=== PATIENT | male | born 1950 | race Two or more races ===

== ENCOUNTER 2016-09-08 23:39 | Emergency (ER) | payer MEDICARE, OTHER ==
[2016-09-09 00:03] VITALS: PULSE 67; RESP 18
[2016-09-09] MEDS ORDERED: PROPARACAINE 0.5% OPHTH DROPS 15 ML BTL LEFT EYE STA (00:46)
--- NOTE | 2016-09-09 01:31 | ED ---
Eye Problem HPI - General Chief complaint: Eye Problems Stated complaint: L Eye Burning Time Seen by Provider: 09/09/16 00:13 Source: patient, EMS, records assistant, RN notes reviewed Mode of arrival: EMS Limitations: language barrier - History of Present Illness Initial comments: Patient is 66-year-old male presents to the emergency room for evaluation of left eye burning. HPI obtained from records assistant. Patient woke up around 12:30 this morning with left eye burning. Burning is worse every time patient blinks. Denies injury to left eye or getting any dust or foreign bodies into left eye during the day today. Patient had cataract surgery about 3-4 years ago by his administrative services manager in [place]. Denies any issues with his eye since. Last visit to his administrative services manager was one year ago. When patient initially began feeling the burning in his eye, he took refresh eyedrops with no relief of symptoms. Denies changes in vision denies pain while moving his eyes. Denies fevers or chills. - Related Data Home Medications Medication Instructions Recorded Confirmed Apixaban [Eliquis] 5 mg PO BID 11/27/15 03/05/16 Atorvastatin [Lipitor] 10 mg PO DAILY 11/27/15 03/05/16 Ezetimibe [Zetia] 10 mg PO HS 11/27/15 03/05/16 Gabapentin 300 mg PO BID 11/27/15 03/05/16 Insulin Aspart [NovoLOG Flexpen] 24 units SQ AC-TID 11/27/15 03/05/16 Insulin Glargine,Hum.rec.anlog 32 units SQ 11/27/15 03/05/16 [Lantus Solostar] Polyethylene Glycol 3350 [Miralax] 17 gm PO DAILY PRN 11/27/15 03/05/16 Ranitidine HCl [Zantac] 150 mg PO BID 11/27/15 03/05/16 Albuterol Inhaler [Ventolin Hfa 1 puff INHALATION RT-Q4H PRN 03/05/16 03/05/16 Inhaler] Amiodarone [Cordarone] 200 mg PO DAILY 03/05/16 03/05/16 Aspirin [Adult Low Dose Aspirin EC] 81 mg PO DAILY 03/05/16 03/05/16 Betamethasone Dipropionate 1 applic TOPICAL BID PRN 03/05/16 03/05/16 [Diprolene AF 0.05% Cream] Carvedilol [Coreg] 12.5 mg PO BID 03/05/16 03/05/16 Docusate [Colace] 100 mg PO Q12H PRN 03/05/16 03/05/16 Fluticasone Nasal [place] [Flonase 2 spray EA NOSTRIL DAILY 03/05/16 03/05/16 Nasal [place]] Ibuprofen [Motrin] 800 mg PO Q8H 03/05/16 03/05/16 Nitroglycerin Sl Tabs [Nitrostat] 0.4 mg SUBLINGUAL Q5M PRN 03/05/16 03/05/16 Penicillin V Potassium [Pen Vee K] 500 mg PO Q8H 03/05/16 03/05/16 busPIRone HCL [Buspar] 7.5 mg PO BID 03/05/16 03/05/16 Previous Rx's Medication Instructions Recorded Lisinopril [Zestril] 10 mg PO DAILY tab 11/30/15 Metoprolol Tartrate [Lopressor] 50 mg PO BID #60 tab 11/30/15 Polymyxin B-Trimethoprim Ophth 2 drops LEFT EYE Q4H 10 Days 09/09/16 [Polytrim Opthalmic] Allergies Allergy/AdvReac Type Severity Reaction Status Date / Time No Known Allergies Allergy Verified 03/05/16 16:30 Review of Systems ROS Statement: Those systems with pertinent positive or pertinent negative responses have been documented in the HPI. ROS Other: All systems not noted in ROS Statement are negative. Past Medical History Past Medical History: Coronary Artery Disease (CAD), Diabetes Mellitus, Hearing Disorder / Deafness, Hyperlipidemia, Hypertension, Myocardial Infarction ([place]), Skin Disorder, Sleep Apnea/CPAP/BIPAP Additional Past Medical History / Comment(s): Pt is deaf, IDDM type II, bilateral hands/arms and leg/feet neuropathy, JAMEY with no current CPAP use, psoriasis, constipation, pt needs oral surgery. Pt is a Jehov[employer] Witness and is not to receive blood. Last Myocardial Infarction Date:: 2008 History of Any Multi-Drug Resistant Organisms: None Reported Past Surgical History: Heart Catheterization With Stent Additional Past Surgical History / Comment(s): One cardiac stent placed approx 2008 at [facility], Past Anesthesia/Blood Transfusion Reactions: No Reported Reaction Additional Past Anesthesia/Blood Transfusion Reaction / Comment(s): DOES NOT RECIEVE BLOOD TRANSFUSIONS Date of Last Stent Placement:: approx 7 yrs ago Past Psychological History: Depression Additional Psychological History / Comment(s): Pt resides in an apartment alone. He has [facility] home care. He ambulates with a cane or uses a scooter. Pt is a [employer] and does not want to receive blood. Smoking Status: Former smoker Past Alcohol Use History: None Reported Additional Past Alcohol Use History / Comment(s): Pt quit smoking in 1977. Past Drug Use History: None Reported - Past Family History Father History Unknown: Yes Family Medical History: Cancer Mother History Unknown: Yes General Exam - General Exam Comments Initial Comments: Sitting in exam room, no acute distress. Limitations: language barrier General appearance: alert, in no apparent distress Expanded Eyelids: Normal Inspection: Bilateral Pupils: Regular, Round: Bilateral, Reactive: Bilateral Sclera/Conjunctival: Injection: Left IOP (L) in mmH IOP measured with: Tonopen ENT exam: Present: normal exam Neck exam: Present: normal inspection Respiratory exam: Absent: respiratory distress Extremities exam: Present: normal inspection Back exam: Present: normal inspection Neurological exam: Present: alert, oriented X3, CN II-XII intact Psychiatric exam: Present: normal affect, normal mood Skin exam: Present: warm, dry, intact, normal color. Absent: rash Course Vital Signs 09/08/16 09/09/16 23:59 01:53 Temperature 97.7 F 98.2 F Pulse Rate 67 67 Respiratory 18 18 Rate Blood Pressure 147/62 134/75 O2 Sat by Pulse 97 95 Oximetry Medical Decision Making - Medical Decision Making Patient is a 66-year-old male since emergency room for evaluation of left eye burning. Small amount of uptake noted when left eye was evaluated with fluorescein dye under Quiles lamp. Will place patient on antibiotic eyedrops and have him follow-up with his administrative services manager. Eye pressure within normal limits. Patient denies any changes in vision. Patient states he understands everything that was discussed with him. Return parameters discussed. Case discussed with Dr. Carl. Disposition Clinical Impression: Corneal abrasion Disposition: HOME SELF-CARE Condition: Good Instructions: Corneal Abrasion (ED) Additional Instructions: Take Tylenol or Motrin as needed for discomfort. Apply eye drops to left eye as directed. Please follow up with administrative services manager in the morning. If any new symptom arises or symptoms worsen, return to ER as soon as possible. Prescriptions: Polymyxin B-Trimethoprim Ophth [Polytrim Opthalmic] 2 drops LEFT EYE Q4H 10 Days Referrals: Sherron Anderson MD [Primary Care Provider] - 1-2 days Cesar Taylor MD [STAFF PHYSICIAN] - 1-2 days Time of Disposition: 01:34
[2016-09-09 01:57] VITALS: BP 134/75; TEMP 98.2
== END 2016-09-09 01:56 | disposition home or self-care (01) ==
LOC: EC 23:39
DX: S05.02XA Injury of conjunctiva and corneal abrasion without foreign body, left eye, initial encounter (principal); X58.XXXA Exposure to other specified factors, initial encounter; I10 Essential (primary) hypertension; E11.40 Type 2 diabetes mellitus with diabetic neuropathy, unspecified; I25.10 Atherosclerotic heart disease of native coronary artery without angina pectoris; E78.5 Hyperlipidemia, unspecified; G47.33 Obstructive sleep apnea (adult) (pediatric); Z95.5 Presence of coronary angioplasty implant and graft; H91.93 Unspecified hearing loss, bilateral; F32.9 Major depressive disorder, single episode, unspecified; Z79.82 Long term (current) use of aspirin; Z79.01 Long term (current) use of anticoagulants; Z79.4 Long term (current) use of insulin; Z79.51 Long term (current) use of inhaled steroids; Z79.899 Other long term (current) drug therapy; Z87.891 Personal history of nicotine dependence
CPT/HCPCS: 99284

== ENCOUNTER 2016-11-05 09:18 | Emergency (ER) | payer MEDICARE, OTHER ==
[2016-11-05 09:30] VITALS: BP 137/65; PULSE 68; RESP 18; TEMP 98.3
[2016-11-05] MEDS ORDERED: PROPARACAINE 0.5% OPHTH DROPS 15 ML BTL LEFT EYE STA (09:43)
--- NOTE | 2016-11-05 10:48 | ED ---
General Adult HPI - General Chief complaint: Eye Problems Stated complaint: eye pain Time Seen by Provider: 11/05/16 09:35 Source: patient, RN notes reviewed Mode of arrival: wheelchair Limitations: language barrier - History of Present Illness Initial comments: Patient is 66-year-old male who is deaf, presenting today with a chief complaint of left eye irritation. Pen and Paper used to communicate. Patient does admit that this pain has been ongoing for the past 2 months. Recent visit was reviewed showing the patient was seen for an abrasion on September 08 and given eyedrops. He does admit that he uses. States that he is still had this pain. States that the family doctor yesterday prescribed new antibiotic of polymyxin B. Patient states he started this in a back drop yesterday. States that he still experiencing some pain left side. He does admit some blurry vision. Patient denies any injury or trauma causing this. Patient denies any other complaints at this time. - Related Data Home Medications Medication Instructions Recorded Confirmed Apixaban [Eliquis] 5 mg PO BID 11/27/15 03/05/16 Atorvastatin [Lipitor] 10 mg PO DAILY 11/27/15 03/05/16 Ezetimibe [Zetia] 10 mg PO HS 11/27/15 03/05/16 Gabapentin 300 mg PO BID 11/27/15 03/05/16 Insulin Aspart [NovoLOG Flexpen] 24 units SQ AC-TID 11/27/15 03/05/16 Insulin Glargine,Hum.rec.anlog 32 units SQ 11/27/15 03/05/16 [Lantus Solostar] Polyethylene Glycol 3350 [Miralax] 17 gm PO DAILY PRN 11/27/15 03/05/16 Ranitidine HCl [Zantac] 150 mg PO BID 11/27/15 03/05/16 Albuterol Inhaler [Ventolin Hfa 1 puff INHALATION RT-Q4H PRN 03/05/16 03/05/16 Inhaler] Amiodarone [Cordarone] 200 mg PO DAILY 03/05/16 03/05/16 Aspirin [Adult Low Dose Aspirin EC] 81 mg PO DAILY 03/05/16 03/05/16 Betamethasone Dipropionate 1 applic TOPICAL BID PRN 03/05/16 03/05/16 [Diprolene AF 0.05% Cream] Carvedilol [Coreg] 12.5 mg PO BID 03/05/16 03/05/16 Docusate [Colace] 100 mg PO Q12H PRN 03/05/16 03/05/16 Fluticasone Nasal [place] [Flonase 2 spray EA NOSTRIL DAILY 03/05/16 03/05/16 Nasal [place]] Ibuprofen [Motrin] 800 mg PO Q8H 03/05/16 03/05/16 Nitroglycerin Sl Tabs [Nitrostat] 0.4 mg SUBLINGUAL Q5M PRN 03/05/16 03/05/16 Penicillin V Potassium [Pen Vee K] 500 mg PO Q8H 03/05/16 03/05/16 busPIRone HCL [Buspar] 7.5 mg PO BID 03/05/16 03/05/16 Previous Rx's Medication Instructions Recorded Lisinopril [Zestril] 10 mg PO DAILY tab 11/30/15 Metoprolol Tartrate [Lopressor] 50 mg PO BID #60 tab 11/30/15 Polymyxin B-Trimethoprim Ophth 2 drops LEFT EYE Q4H 10 Days 09/09/16 [Polytrim Opthalmic] Allergies Allergy/AdvReac Type Severity Reaction Status Date / Time No Known Allergies Allergy Verified 11/05/16 09:30 Review of Systems ROS Statement: Those systems with pertinent positive or pertinent negative responses have been documented in the HPI. ROS Other: All systems not noted in ROS Statement are negative. Past Medical History Past Medical History: Coronary Artery Disease (CAD), Diabetes Mellitus, Hearing Disorder / Deafness, Hyperlipidemia, Hypertension, Myocardial Infarction ([place]), Skin Disorder, Sleep Apnea/CPAP/BIPAP Additional Past Medical History / Comment(s): Pt is deaf, IDDM type II, bilateral hands/arms and leg/feet neuropathy, JAMEY with no current CPAP use, psoriasis, constipation, pt needs oral surgery. Pt is a Jehovah Witness and is not to receive blood. Last Myocardial Infarction Date:: 2008 History of Any Multi-Drug Resistant Organisms: None Reported Past Surgical History: Heart Catheterization With Stent Additional Past Surgical History / Comment(s): One cardiac stent placed approx 2008 at [facility], Past Anesthesia/Blood Transfusion Reactions: No Reported Reaction Additional Past Anesthesia/Blood Transfusion Reaction / Comment(s): DOES NOT RECIEVE BLOOD TRANSFUSIONS Date of Last Stent Placement:: approx 7 yrs ago Past Psychological History: Depression Additional Psychological History / Comment(s): Pt resides in an apartment alone. He has [facility] home care. He ambulates with a cane or uses a scooter. Pt is a [employer] and does not want to receive blood. Smoking Status: Former smoker Past Alcohol Use History: None Reported Additional Past Alcohol Use History / Comment(s): Pt quit smoking in 1977. Past Drug Use History: None Reported - Past Family History Father History Unknown: Yes Family Medical History: Cancer Mother History Unknown: Yes General Exam - General Exam Comments Initial Comments: General: The patient is awake and alert, in no distress, and does not appear acutely ill. Eye: Pupils are equal, round and reactive to light, extra-ocular movements are intact. No nystagmus. There is normal conjunctiva bilaterally. No signs of icterus. Ears, nose, mouth and throat: There are moist mucous membranes and no oral lesions. Neck: The neck is supple, there is no tenderness or JVD. Cardiovascular: There is a regular rate and rhythm. No murmur, rub or gallop is appreciated. Respiratory: Lungs are clear to auscultation, respirations are non-labored, breath sounds are equal. No wheezes, stridor, rales, or rhonchi. Musculoskeletal: Normal ROM, no tenderness. Strength 5/5. Sensation intact. Pulses equal bilaterally 2+. Neurological: A&O x 3. CN II-XII intact, There are no obvious motor or sensory deficits. Coordination appears grossly intact. Speech is normal. Skin: Skin is warm and dry and no rashes or lesions are noted. Psychiatric: Cooperative, appropriate mood & affect, normal judgment. Limitations: language barrier Course Vital Signs 11/05/16 09:27 Temperature 98.3 F Pulse Rate 68 Respiratory 18 Rate Blood Pressure 137/65 O2 Sat by Pulse 93 L Oximetry Medical Decision Making - Medical Decision Making Case discussed in detail with attending physician Dr. Suero. Patient's left eye pressure was checked 21 in the left 22 in the right. Patient is advised follow- up with matlab developer. Left eye was stained with fluorescein showing a corneal ulcer left eye. Patient had improvement of symptoms after proparacaine drop. Patient will be continued on the antibiotics that were prescribed yesterday. Patient is advised follow-up with urology Monday. He states understanding and is in agreement with this plan. Disposition Clinical Impression: Corneal ulcer Disposition: HOME SELF-CARE Condition: Stable Instructions: Corneal Ulcer (ED) Additional Instructions: Please follow-up with matlab developer Dr. Elizalde Monday. You may have someone help call the office to set up an appointment number is [phone]. If there is no one to help call you may show up to the office to set up an appointment to be seen for a corneal ulcer to the left eye. Please use eyedrops that were prescribed by the family doctor and told that time. Please return to emergency room if any symptoms increase worsen or for any other concerns. Referrals: Kyle Anderson MD [Primary Care Provider] - 1-2 days Deondre Elizalde MD [STAFF PHYSICIAN] - 1-2 days Time of Disposition: 10:46
== END 2016-11-05 11:19 | disposition home or self-care (01) ==
LOC: EC 09:18
DX: H16.002 Unspecified corneal ulcer, left eye (principal); E11.9 Type 2 diabetes mellitus without complications; E78.5 Hyperlipidemia, unspecified; I10 Essential (primary) hypertension; I25.10 Atherosclerotic heart disease of native coronary artery without angina pectoris; I25.2 Old myocardial infarction; F32.9 Major depressive disorder, single episode, unspecified; Z87.891 Personal history of nicotine dependence; Z79.01 Long term (current) use of anticoagulants; Z79.4 Long term (current) use of insulin; Z79.51 Long term (current) use of inhaled steroids; Z79.82 Long term (current) use of aspirin; Z79.899 Other long term (current) drug therapy
CPT/HCPCS: 99283

== ENCOUNTER 2017-01-30 17:25 | Observation (INO) | payer MEDICARE, OTHER ==
[2017-01-30 19:31] LABS: Basophils % (A) 0 %; CH 32.2; CHCM 33.8; Eosinophils # (A) 0.2 k/uL (0-0.7); Eosinophils % (A) 2 %; HGB 13.7 gm/dL (13.0-17.5); Luc # (Auto) 0.15; Luc % (Auto) 2; Lymphocytes # (A) 1.2 k/uL (1.0-4.8); Lymphocytes % (A) 17 %; MCH 31.9 pg (25.0-35.0); MCHC 33.3 g/dL (31.0-37.0); MCV 95.8 fL (80.0-100.0); Mean Platelet Volume 7.3; Monocytes # (A) 0.5 k/uL (0-1.0); Monocytes % (A) 6 %; Neutrophils # (A) 5.2 k/uL (1.3-7.7); Neutrophils % (A) 72 %; RBC 4.28 m/uL (4.30-5.90); RDW 14.4 % (11.5-15.5); WBC 7.2 k/uL (3.8-10.6); WBC (Perox) 6.95
[2017-01-30 19:39] LABS: ALT 46 U/L (21-72); AST 27 U/L (17-59); Alkaline Phosphatase 65 U/L (38-126); Anion Gap 8 mmol/L; Blood Urea Nitrogen 12 mg/dL (9-20); Calcium 8.5 mg/dL (8.4-10.2); Carbon Dioxide 27 mmol/L (22-30); Chloride 103 mmol/L (98-107); Glucose 212 mg/dL (74-99); Magnesium 2.1 mg/dL (1.6-2.3); Non-African American GFR(MDRD) >60 (>60 ml/min/1.73 sqM); Potassium 4.3 mmol/L (3.5-5.1); Sodium 138 mmol/L (137-145); Total Bilirubin 1.8 mg/dL (0.2-1.3); Total Protein 6.2 g/dL (6.3-8.2)
[2017-01-30 20:07] LABS: INR 1.1 (<1.2); Partial Thromboplastin Time 24.6 sec (22.0-30.0); Prothrombin Time 10.9 sec (9.0-12.0)
--- NOTE | 2017-01-30 20:41 | XR ---
EXAMINATION TYPE: XR chest 2V DATE OF EXAM: 01/30/2017 COMPARISON: 03/05/2016 HISTORY: Irregular heart rate TECHNIQUE: Frontal and lateral views of the chest are obtained. FINDINGS: Heart and mediastinum are within normal limits. Lungs are clear. There is no heart failure . There is no pleural effusion. Bony thorax is intact. IMPRESSION: No active cardiopulmonary disease. No change.
[2017-01-30 20:45] LABS: Creatine Kinase 90 U/L (55-170)
[2017-01-30 20:58] LABS: Creatine Kinase MB 1.2 ng/mL (0.0-2.4); Troponin I <0.012 ng/mL (0.000-0.034)
[2017-01-30] MEDS ORDERED: ONDANSETRON 4 MG/2 ML VIAL IVP PRN (21:07)
[2017-01-30] MEDS ORDERED: NALOXONE 0.4 MG/ML 1 ML VIAL IV PRN (21:07)
--- NOTE | 2017-01-30 21:14 | ED ---
General Adult HPI - General Chief complaint: Arrhythmia/Palpitations Stated complaint: low O2 and low heart rate Time Seen by Provider: 01/30/17 17:48 Source: patient, diplomatic interpreter/translator, RN notes reviewed Mode of arrival: wheelchair Limitations: language barrier - History of Present Illness Initial comments: History obtained through diplomatic interpreter/translator. Patient is deaf. 66-year-old male presenting with chief complaint of palpitations. States his heart has felt as if was beating slow. He checked his heart rate at home and it was 44. He also complains of some shortness of breath with this. Denies any current chest pain but states it he had some chest pain approximately one week ago. No nausea vomiting. No cough. No fever or chills. Patient does have history of coronary artery disease status post stenting at [facility]. Patient is currently on a [place], Coreg, and lisinopril. Additional past medical history of diabetes and hypothyroidism. - Related Data Home Medications Medication Instructions Recorded Confirmed Apixaban [Eliquis] 5 mg PO BID 11/27/15 01/30/17 Atorvastatin [Lipitor] 10 mg PO DAILY 11/27/15 01/30/17 Ezetimibe [Zetia] 10 mg PO DAILY 11/27/15 01/30/17 Gabapentin 300 mg PO BID 11/27/15 01/30/17 Insulin Aspart [NovoLOG Flexpen] 20 units SQ AC-TID 11/27/15 01/30/17 Ranitidine HCl [Zantac] 150 mg PO BID 11/27/15 01/30/17 Albuterol Inhaler [Ventolin Hfa 1 puff INHALATION RT-Q4H PRN 03/05/16 01/30/17 Inhaler] Betamethasone Dipropionate 1 applic TOPICAL BID PRN 03/05/16 01/30/17 [Diprolene AF 0.05% Cream] Fluticasone Nasal [place] [Flonase 2 spray EA NOSTRIL DAILY 03/05/16 01/30/17 Nasal [place]] Nitroglycerin Sl Tabs [Nitrostat] 0.4 mg SUBLINGUAL Q5M PRN 03/05/16 01/30/17 busPIRone HCL [Buspar] 7.5 mg PO BID@0900,1700 03/05/16 01/30/17 Carvedilol [Coreg] 25 mg PO BID 01/30/17 01/30/17 Diphenox-Atrop 2.5-0.025 mg 2 tab PO QID PRN 01/30/17 01/30/17 [Lomotil] Fexofenadine HCl 180 mg PO DAILY 01/30/17 01/30/17 Insulin Detemir [Levemir Flextouch] 28 units SQ DAILY 01/30/17 01/30/17 Levothyroxine Sodium [Synthroid] 112 mcg PO DAILY 01/30/17 01/30/17 Montelukast [Singulair] 10 mg PO HS 01/30/17 01/30/17 Mupirocin [Mupirocin 2%] 1 applic TOPICAL TID 01/30/17 01/30/17 Naproxen 500 mg PO BID 01/30/17 01/30/17 [place]-3 Acid Ethyl Esters [Lovaza] 1 gm PO DAILY 01/30/17 01/30/17 metFORMIN HCL [Glucophage] 500 mg PO BID 01/30/17 01/30/17 traZODone HCL [Desyrel] 25 - 50 mg PO HS 01/30/17 01/30/17 Previous Rx's Medication Instructions Recorded Lisinopril [Zestril] 10 mg PO DAILY tab 11/30/15 Metoprolol Tartrate [Lopressor] 50 mg PO BID #60 tab 11/30/15 Allergies Allergy/AdvReac Type Severity Reaction Status Date / Time No Known Allergies Allergy Verified 01/30/17 19:00 Review of Systems ROS Statement: Those systems with pertinent positive or pertinent negative responses have been documented in the HPI. ROS Other: All systems not noted in ROS Statement are negative. Past Medical History Past Medical History: Coronary Artery Disease (CAD), Diabetes Mellitus, Hearing Disorder / Deafness, Hyperlipidemia, Hypertension, Myocardial Infarction ([place]), Skin Disorder, Sleep Apnea/CPAP/BIPAP Additional Past Medical History / Comment(s): Pt is deaf, IDDM type II, bilateral hands/arms and leg/feet neuropathy, JAMEY with no current CPAP use, psoriasis, constipation, pt needs oral surgery. Pt is a Jehovah Witness and is not to receive blood. Last Myocardial Infarction Date:: 2008 History of Any Multi-Drug Resistant Organisms: None Reported Past Surgical History: Heart Catheterization With Stent Additional Past Surgical History / Comment(s): One cardiac stent placed approx 2008 at [facility], Past Anesthesia/Blood Transfusion Reactions: No Reported Reaction Additional Past Anesthesia/Blood Transfusion Reaction / Comment(s): DOES NOT RECIEVE BLOOD TRANSFUSIONS Date of Last Stent Placement:: approx 7 yrs ago Past Psychological History: Depression Smoking Status: Former smoker Past Alcohol Use History: None Reported Past Drug Use History: None Reported - Past Family History Father History Unknown: Yes Family Medical History: Cancer Mother History Unknown: Yes General Exam Limitations: language barrier General appearance: alert, in no apparent distress Head exam: Present: atraumatic, normocephalic Eye exam: Present: normal appearance, PERRL ENT exam: Present: normal exam, mucous membranes moist Neck exam: Present: normal inspection Respiratory exam: Present: normal lung sounds bilaterally. Absent: respiratory distress, wheezes Cardiovascular Exam: Present: normal rhythm, bradycardia GI/Abdominal exam: Present: soft. Absent: distended, tenderness, guarding Extremities exam: Present: normal capillary refill. Absent: pedal edema Neurological exam: Present: alert, oriented X3, CN II-XII intact, motor sensory deficit Psychiatric exam: Present: normal affect, normal mood Skin exam: Present: warm, dry Course Vital Signs 01/30/17 01/30/17 01/30/17 17:39 18:59 20:04 Temperature 99.5 F Pulse Rate 65 61 54 L Respiratory 18 16 16 Rate Blood Pressure 121/80 173/81 O2 Sat by Pulse 96 93 L 94 L Oximetry EKG Findings - EKG Comments: EKG Findings:: EKG shows sinus rhythm with PACs, ventricular rate is 62, NJ interval 96, QRS tracing 78, QTC is 393, there is no ST segment elevation or depression. Medical Decision Making - Medical Decision Making 66-year-old male presenting with palpitations, patient does report chest pain approximately one week ago which is currently resolved. Has a history of coronary artery disease, diabetes, and hypothyroidism. EKG shows sinus rhythm with PACs, no signs of ischemia. Chest x-ray shows no acute process. Initial laboratory studies including cardiac enzymes are within normal limits. History was obtained through an diplomatic interpreter/translator. Patient will be admitted for cardiology evaluation and serial cardiac enzymes. - Lab Data Result diagrams: 01/30/17 19:20 01/30/17 19:20 Lab Results 01/30/17 01/30/17 01/30/17 Range/Units 19:20 19:20 19:20 WBC 7.2 (3.8-10.6) k/uL RBC 4.28 L (4.30-5.90) m/uL Hgb 13.7 (13.0-17.5) gm/dL Hct 41.0 (39.0-53.0) % MCV 95.8 (80.0-100.0) fL MCH 31.9 (25.0-35.0) pg MCHC 33.3 (31.0-37.0) g/dL RDW 14.4 (11.5-15.5) % Plt Count 201 (150-450) k/uL Neutrophils % 72 % Lymphocytes % 17 % Monocytes % 6 % Eosinophils % 2 % Basophils % 0 % Neutrophils # 5.2 (1.3-7.7) k/uL Lymphocytes # 1.2 (1.0-4.8) k/uL Monocytes # 0.5 (0-1.0) k/uL Eosinophils # 0.2 (0-0.7) k/uL Basophils # 0.0 (0-0.2) k/uL PT (9.0-12.0) sec INR (<1.2) APTT (22.0-30.0) sec Sodium 138 (137-145) mmol/L Potassium 4.3 (3.5-5.1) mmol/L Chloride 103 (98-107) mmol/L Carbon Dioxide 27 (22-30) mmol/L Anion Gap 8 mmol/L BUN 12 (9-20) mg/dL Creatinine 0.96 (0.66-1.25) mg/dL Est GFR (MDRD) Af Amer >60 (>60 ml/min/1.73 sqM) Est GFR (MDRD) Non-Af >60 (>60 ml/min/1.73 sqM) Glucose 212 H (74-99) mg/dL Calcium 8.5 (8.4-10.2) mg/dL Magnesium 2.1 (1.6-2.3) mg/dL Total Bilirubin 1.8 H (0.2-1.3) mg/dL AST 27 (17-59) U/L ALT 46 (21-72) U/L Alkaline Phosphatase 65 (38-126) U/L Total Creatine Kinase 90 (55-170) U/L CK-MB (CK-2) 1.2 (0.0-2.4) ng/mL CK-MB (CK-2) Rel Index 1.3 Troponin I <0.012 (0.000-0.034) ng/mL NT-Pro-B Natriuret Pep pg/mL Total Protein 6.2 L (6.3-8.2) g/dL Albumin 3.7 (3.5-5.0) g/dL 01/30/17 01/30/17 Range/Units 19:20 19:20 WBC (3.8-10.6) k/uL RBC (4.30-5.90) m/uL Hgb (13.0-17.5) gm/dL Hct (39.0-53.0) % MCV (80.0-100.0) fL MCH (25.0-35.0) pg MCHC (31.0-37.0) g/dL RDW (11.5-15.5) % Plt Count (150-450) k/uL Neutrophils % % Lymphocytes % % Monocytes % % Eosinophils % % Basophils % % Neutrophils # (1.3-7.7) k/uL Lymphocytes # (1.0-4.8) k/uL Monocytes # (0-1.0) k/uL Eosinophils # (0-0.7) k/uL Basophils # (0-0.2) k/uL PT 10.9 (9.0-12.0) sec INR 1.1 (<1.2) APTT 24.6 (22.0-30.0) sec Sodium (137-145) mmol/L Potassium (3.5-5.1) mmol/L Chloride (98-107) mmol/L Carbon Dioxide (22-30) mmol/L Anion Gap mmol/L BUN (9-20) mg/dL Creatinine (0.66-1.25) mg/dL Est GFR (MDRD) Af Amer (>60 ml/min/1.73 sqM) Est GFR (MDRD) Non-Af (>60 ml/min/1.73 sqM) Glucose (74-99) mg/dL Calcium (8.4-10.2) mg/dL Magnesium (1.6-2.3) mg/dL Total Bilirubin (0.2-1.3) mg/dL AST (17-59) U/L ALT (21-72) U/L Alkaline Phosphatase (38-126) U/L Total Creatine Kinase (55-170) U/L CK-MB (CK-2) (0.0-2.4) ng/mL CK-MB (CK-2) Rel Index Troponin I (0.000-0.034) ng/mL NT-Pro-B Natriuret Pep 198 pg/mL Total Protein (6.3-8.2) g/dL Albumin (3.5-5.0) g/dL Disposition Clinical Impression: Premature atrial contraction, Chest pain Disposition: ADMITTED IP TO THIS [facility] Condition: Stable Referrals: Sherron Anderson MD [Primary Care Provider] - 1-2 days Decision to Admit Reason: Admit from EC Decision Date: 01/30/17 Decision Time: 21:14
[2017-01-30] MEDS ORDERED: SODIUM CHLORIDE 0.9% 1,000 ML IV SCH (21:15)
[2017-01-30 22:49] VITALS: BMI 36.9
[2017-01-30 23:34] LABS: Glucose,Whole Blood 165 mg/dL (75-99)
[2017-01-31] MEDS: INSULIN LISPRO (humaLOG) 300 UNIT/3 ML VIAL SQ SCH ×2 (00:08→09:42)
[2017-01-31] MEDS ORDERED: BETAMETHASONE DIPROPIONATE 0.05% CREAM 15 GM TUBE TOPICAL PRN (00:18)
[2017-01-31] MEDS ORDERED: DIPHENOX-ATROP 2.5-0.025 MG 1 EACH TAB PO PRN (00:18)
[2017-01-31] MEDS ORDERED: NITROGLYCERIN SL TABS 0.4 MG TAB SUBLINGUAL PRN (00:18)
[2017-01-31] MEDS ORDERED: ATORVASTATIN 10 MG TAB PO SCH ×2 (00:30→09:00)
[2017-01-31] MEDS ORDERED: CARVEDILOL 12.5 MG TAB PO SCH ×3 (00:30→09:30)
[2017-01-31] MEDS: GABAPENTIN 300 MG CAP PO SCH ×2 (01:30→09:41)
[2017-01-31] MEDS: APIXABAN 5 MG TAB PO SCH ×2 (01:31→09:41)
[2017-01-31] MEDS: LISINOPRIL 10 MG TAB PO SCH ×2 (01:31→09:41)
[2017-01-31 01:45] LABS: Creatine Kinase 90 U/L (55-170)
[2017-01-31 01:58] LABS: Creatine Kinase MB 1.1 ng/mL (0.0-2.4); Troponin I <0.012 ng/mL (0.000-0.034)
[2017-01-31] MEDS ORDERED: LEVOTHYROXINE 112 MCG TAB PO SCH (06:30)
[2017-01-31 07:06] LABS: Glucose,Whole Blood 190 mg/dL (75-99)
[2017-01-31 07:49] VITALS: RESP 18
[2017-01-31 08:39] LABS: Creatine Kinase 91 U/L (55-170)
[2017-01-31 08:49] LABS: Troponin I <0.012 ng/mL (0.000-0.034)
[2017-01-31] MEDS ORDERED: METOPROLOL TARTRATE 50 MG TAB PO SCH (09:00)
[2017-01-31] MEDS ORDERED: INSULIN DETEMIR 100 UNIT/ML 10 ML VIAL SQ SCH (09:00)
[2017-01-31] MEDS ORDERED: FAMOTIDINE 20 MG TAB PO SCH (09:00)
[2017-01-31] MEDS ORDERED: LISINOPRIL 10 MG TAB PO SCH (09:00)
[2017-01-31] MEDS ORDERED: NON-FORMULARY DRUG (Omega-3 Acid Ethyl Esters [Lovaza] 1 GM) PO SCH (09:00)
[2017-01-31] MEDS ORDERED: EZETIMIBE 10 MG TAB PO SCH (09:00)
[2017-01-31] MEDS ORDERED: busPIRone HCl 5 MG TAB PO SCH (09:00)
[2017-01-31] MEDS ORDERED: metFORMIN 500 MG TAB PO SCH (09:00)
[2017-01-31] MEDS ORDERED: NAPROXEN 250 MG TAB PO SCH (09:00)
[2017-01-31] MEDS ORDERED: FLUTICASONE 50MCG/SPRAY NASAL 16GM EA NOSTRIL SCH (09:00)
[2017-01-31] MEDS ORDERED: MUPIROCIN 2% OINT 22 GM TUBE TOPICAL SCH (09:00)
[2017-01-31] MEDS ORDERED: APIXABAN 5 MG TAB PO SCH (09:00)
[2017-01-31] MEDS ORDERED: GABAPENTIN 300 MG CAP PO SCH (09:00)
[2017-01-31] MEDS ORDERED: LORATADINE 10 MG TAB PO SCH (09:00)
--- NOTE | 2017-01-31 09:34 | HP ---
DATE OF SERVICE: 01/30/2017 CHIEF COMPLAINT: A 66-year-old white male with palpitations. HISTORY OF PRESENT ILLNESS: This 66-year-old white male who is apparently deaf. Says his heartbeat was beating slow. It was in 40s at home. He got some atypical chest pain a week ago and because of the chest pain and irregular beat and he has a history of coronary artery stenting at [facility]. He was brought to the hospital. He is on lisinopril and Coreg. He has a history of diabetes mellitus and hypothyroidism. He is deaf for many years. He does sign language. HOME MEDICATIONS: 1. Eliquis 5 mg b.i.d. 2. Lipitor 10 mg daily. 3. Zetia 10 mg daily. 4. Gabapentin 300 mg b.i.d. 5. Insulin FlexPen 20 units subcu t.i.d. 6. Zantac 150 b.i.d. 7. Albuterol 2 puffs q.4 hours p.r.n. 8. He takes fluticasone. 9. Nitroglycerin sublingual. 10. BuSpar. 11. Coreg. 12. Fexofenadine. 13. Levemir. 14. Synthroid. 15. Singulair. 16. Lovaza. 17. Glucophage. 18. Desyrel. ALLERGIES: No known drug allergies. REVIEW OF SYSTEMS: Fourteen-point review of systems negative except for as mentioned in HPI. PAST MEDICAL HISTORY: Coronary artery disease, diabetes mellitus, hearing disorder, deafness, dyslipidemia, hypertension, myocardial infarction, skin disorder, sleep apnea, type 2 diabetes mellitus. He has neuropathy, obstructive sleep apnea, psoriasis, constipation. Jehovah Witness no blood. Heart catheterization with stent in the past. He is a former smoker. No alcohol. No illicit drugs. FAMILY HISTORY: Father with cancer. PHYSICAL EXAM: Vital signs stable, afebrile. CARDIOVASCULAR: S1 and S2. ABDOMEN: Clear. EXTREMITIES: No cyanosis, clubbing or edema. NEUROLOGIC: Awake, alert, oriented x3. PSYCH: Fair mood affect. OPHTHALMOLOGIC: Pupils equal, round and reactive to light and accommodation. ENT: External ear canals within normal limits. Temp 99.5, pulse 50s to 60s, respiratory 16 to 18, blood pressure 120s to 170s over 80s, O2 is 94% to 96% on room air. EKG sinus rhythm. ASSESSMENT: 1. Atypical chest pain. 2. Palpitations. 3. Bradycardia. 4. Hypothyroidism. 5. Coronary artery disease. 6. Diabetes mellitus. 7. Hypothyroidism. Await Cardiology to evaluate patient prior to discharge. MTDD
[2017-01-31 11:34] VITALS: BP 109/69; PULSE 79; TEMP 98.7
--- NOTE | 2017-01-31 12:28 | CONS ---
This is a 66-year-old gentleman with a history of CAD, previous stenting performed more than 4 years ago at [facility] and he usually sees a assistant front end manager in the [facility]. He has hypertension, hyperlipidemia, paroxysmal A. fib and probably underlying sick sinus syndrome. He came in mainly with complaints of feeling that his heart rate is slow and he was having palpitations. He has a finger heart rate monitor, which showed the rate was in the 44 or so. He felt short of breath. He felt weak and with these symptoms he came in. He was in a sinus rhythm with PACs at a rate of about ( ) beats per minute. However, he went back into atrial fib. It seems to be his more common rhythm. He had taken additional doses of metoprolol tartrate 50 mg daily at home and this may have been the precipitating factor for him to drop his heart rate. He is otherwise on a regular bases Coreg 25 mg b.i.d. He also has a type 2 diabetes mellitus and hypercholesterolemia and hypertension. He did not have chest pain. He is comfortable, resting. He has no symptoms at this time. He feels well. PAST MEDICAL HISTORY: 1. Paroxysmal A. fib. 2. CAD with previous stenting, details unclear. Follow with a assistant front end manager in [facility]. 3. Type 2 diabetes mellitus. 4. Hyperlipidemia. 5. Hypertension. Previous admission here was with atrial fib. He may have some underlying sick sinus syndrome, but he is usually on Coreg 25 mg b.i.d., probably additional Lopressor that he takes on a p.r.n. basis may have precipitated the bradycardic. Medications at home include Eliquis 5 mg b.i.d., Lipitor 10 mg daily, Zetia 10 mg daily, insulin, metformin, carvedilol 25 mg b.i.d. and Lopressor 50 mg p.r.n. , Singulair, levothyroxine 112 mcg daily, trazodone. ALLERGIES: No known drug allergies. On examination, blood pressure is 130/70, pulse rate is about 68 per minute, appears to be irregular. HEENT: Unremarkable. Fundus was not examined by me. Neck is supple. There is no JVD. I do not hear a carotid bruit. Heart exam reveals S1 and S2 with irregular rate and rhythm. No significant rub , murmur or gallop. Lungs are clear. Abdomen is soft, nontender. Lower extremities reveal palpable pulses. No edema. Central nervous system is normal. Initial EKG revealed sinus PACs with sinus bradycardia with a rate of about 60 beats per minute. Repeat EKG revealed atrial fib at a rate of about 68 beats per minute, irregular, nonspecific ST-T wave changes. IMPRESSION: 1. Paroxysmal atrial fibrillation, well anticoagulated, probably underlying sick sinus syndrome, but stable on current medications. 2. Episode of palpitations and bradycardia, precipitated by additional dose of Lopressor. 3. Coronary artery disease with previous PCI. No issues at this time. 4. Hypertension. 5. Hyperlipidemia. 6. Type 2 diabetes mellitus. RECOMMENDATIONS: I am recommending that we leave him on Coreg 25 mg b.i.d., put a hep lock, increase activity. If he has no further symptoms, he can be discharged. I advised the patient not to take additional Lopressor. He should also have a stress test ideally and he will have it performed through the [facility] and he sees a assistant front end manager there. Discussed my thoughts in detail with the through the operations supervisor chemical cleaning since the patient is deaf. Thank you very much for the consult. JANAE
[2017-01-31 13:54] LABS: Hemoglobin A1C 7.8 % (4.2-6.1)
[2017-01-31] MEDS ORDERED: MONTELUKAST 10 MG TAB PO SCH (21:00)
== END 2017-01-31 12:05 | disposition home or self-care (01) ==
LOC: EC 17:25 → 3OBS 21:10
PROVIDERS: ADMIT Family Medicine; ATTEND Family Medicine
DX: I48.0 Paroxysmal atrial fibrillation (principal); E78.5 Hyperlipidemia, unspecified; I10 Essential (primary) hypertension; I25.10 Atherosclerotic heart disease of native coronary artery without angina pectoris; E11.9 Type 2 diabetes mellitus without complications; H91.90 Unspecified hearing loss, unspecified ear; E03.9 Hypothyroidism, unspecified; I25.2 Old myocardial infarction; G47.33 Obstructive sleep apnea (adult) (pediatric); G62.9 Polyneuropathy, unspecified; L40.9 Psoriasis, unspecified; Z95.5 Presence of coronary angioplasty implant and graft; Z87.891 Personal history of nicotine dependence; Z79.01 Long term (current) use of anticoagulants; Z79.899 Other long term (current) drug therapy; Z79.4 Long term (current) use of insulin; Z79.51 Long term (current) use of inhaled steroids; Z79.84 Long term (current) use of oral hypoglycemic drugs; Z99.89 Dependence on other enabling machines and devices
CPT/HCPCS: 99285 ×2; 36415; 93005; 84439; 83880; 80053; 84443; 83036; 82550 ×2; 82553 ×2; 83735; 84484 ×2; 85025; 85610; 85730; 71020; G0378 ×2

== ENCOUNTER → 2017-03-30 | Outpatient (CLI) | payer MEDICARE, OTHER ==
--- NOTE | 2017-03-30 19:20 | CONS ---
CONSULTATION DATE OF CONSULTATION: 03/30/2017 This patient is a 66-year-old gentleman who has been evaluated in the sleep center for significant excessive daytime sleepiness. The patient is deaf, so all information was obtained through the software team leader. The patient was diagnosed with obstructive sleep apnea about 20 years ago. He was on treatment with CPAP, and the pressure was in the range of 14 cm of water, according to the patient. For last 2 years he was not able to use his CPAP because he did not feel any improvement with the CPAP in relation to his sleepiness. He continued to have sleepiness during the day. About 1 year ago he had a sleep evaluation in another institution, but after that that the situation did not change. He also has been told about some leg movements during the sleep study. Patient says that he possibly may have narcolepsy. His sleep schedule on weekdays is from 10 p.m. to 5 a.m. and on weekends he has a different schedule; anytime. He does have problems with falling asleep. He has a TV set in his bedroom. He sleeps in different positions by himself, so there is no clear information about his snoring during the night. He grinds his teeth, wakes up with a dry mouth and restless legs. He wakes up from sleep about 3 times with 2 episodes of nocturia. In the morning he wakes up tired, falling asleep during the day. [place] Sleepiness Scale is 8. He takes naps 2 or 3 times a day. There is a possible positive history of hypnagogic hallucinations. Patient may see dreams while falling asleep. No history of sleep paralysis or cataplexy. PAST MEDICAL HISTORY: 1. Coronary artery disease with stent insertion. 2. Asthma. 3. Hyperlipidemia. 4. Diabetes mellitus. 5. Back problems. 6. Bradycardia. 7. Dysfunctional ( ) gland. 8. Cataract. PAST SURGICAL HISTORY: 1. Stent insertion to coronary artery. 2. Hernia repair. 3. Cataract surgery with artificial lens insertion. MEDICATIONS: 1. Albuterol. 2. Eliquis. 3. Atorvastatin. 4. Insulin. 5. Betamethasone cream. 6. Buspirone. 7. Carvedilol. 8. Zetia. 9. Fluticasone. 10.Gabapentin. 11.Levothyroxine. 12.Lisinopril. 13.Metformin. 14.Montelukast. 15.Naproxen. 16.Nitroglycerine. 17.Ranitidine. 18.( ). 19.Trazodone at bedtime. SOCIAL HISTORY: Positive for smoking in the past; quit in 1975. Alcohol consumption none. REVIEW OF SYSTEMS: Multiple awakenings from sleep, significant excessive daytime sleepiness. FAMILY HISTORY: Hypertension, heart problems, hyperlipidemia, arthritis, asthma, sinus headache, sleep apnea, tuberculosis, pneumonia, narcolepsy, ulcers, diabetes. PHYSICAL EXAM: This is a pleasant 66-year-old gentleman without distress. VITAL SIGNS: BP 126/64, HR 60, R 18, height 5 feet 8-1/2 inches, weight 252, BMI 37.7. Neck 19-3/4 inch in circumference. Temperature 99.8, oxygen saturation at room air 94%. HEENT: PERRLA, EOMI. Evaluation of oropharynx showed tongue protrudes midline. Moderately low position of soft palate. Short distance between soft palate and pharyngeal wall. NECK: Supple. No JVD. Thyroid is not palpable. LUNGS: Clear to percussion and to auscultation. Good air exchange. No wheezing or rhonchi. HEART: S1, S2 with some irregularities. Slight systolic murmur. ABDOMEN: Obese. EXTREMITIES: One plus bilateral edema. SENIOR OFFICE ASSISTANT: Awake, alert and oriented x3. Cranial nerves 2 to 7 intact. There is no fasciculation or atrophy noted. No focal deficits observed. IMPRESSION: 1. Obstructive sleep apnea-hypopnea syndrome diagnosed 20 years ago in another institution. The patient was on treatment with CPAP but did not feel improvement related to his daytime alertness; he continued to have significant daytime sleepiness with several naps during the day. 2. Significant sleepiness during the day, positive history of hypnagogic hallucinations. Differential diagnosis should include possibility of hypersomnia, including narcolepsy. 3. Coronary artery disease, status post stent insertion. 4. Asthma. 5. Hyperlipidemia. 6. Diabetes mellitus. 7. Back problems. 8. Hypothyroidism. 9. Anxiety. 10.Status post hernia repair. PLAN: 1. To receive results of previous sleep studies. 2. Patient has to re-start treatment for obstructive sleep apnea-hypopnea syndrome. I explained to him that no treatment of obstructive sleep apnea may increase his risk of stroke, heart attack, hypertension, diabetes, heart failure; longevity of life could be shorter for people who have sleep apnea and do not get treatment. 3. Multiple sleep latency test for objective evaluation of patient's sleepiness during the day; the previous night patient has to be on treatment with effective CPAP. 4. Losing weight. 5. Sleep hygiene with regular time in bed 7 days a week. 6. No driving if feeling any sleepiness. Sincerely, Micah Moran MD, PhD, FAASM Diplomat of [employer] [employer] [employer] Job Press Feeder of [facility] [place] MMODL / IJN: [id number] /
== END | disposition home or self-care (01) ==
LOC: SLEEP 13:31
PROVIDERS: ATTEND Internal Medicine
DX: G47.33 Obstructive sleep apnea (adult) (pediatric) (principal); I25.10 Atherosclerotic heart disease of native coronary artery without angina pectoris; J45.909 Unspecified asthma, uncomplicated; E78.5 Hyperlipidemia, unspecified; E11.9 Type 2 diabetes mellitus without complications; E03.9 Hypothyroidism, unspecified; F41.9 Anxiety disorder, unspecified; Z79.899 Other long term (current) drug therapy
CPT/HCPCS: 99211

== ENCOUNTER → 2017-04-26 | Outpatient (CLI) | payer MEDICARE, OTHER ==
--- NOTE | 2017-04-26 15:23 | PN ---
PROGRESS NOTE DATE OF SERVICE: 04/26/2017 A 67-year-old gentleman has been followed in Sleep Center for treatment of significant excessive daytime sleepiness and obstructive sleep apnea-hypopnea syndrome. Patient was diagnosed with obstructive sleep apnea-hypopnea syndrome in different institution. He was recommended treatment with CPAP and I checked his CPAP unit today. The regimen in the machine is maximal inspiratory pressure 20 and minimal expiratory pressure is 10. Machine in the regimen of . For the last 6 months patient was able to use machine only 6 nights. He has difficulties with his mask. He has mask which covers his full face including his eyes, nose, and mouth. Average pressure in the unit is 14.1, apnea-hypopnea index 6.7. Patient continued to feel sleepiness during the day. [place] Sleepiness Scale today is 9. Patient is asking questions about does he have possibly narcolepsy because he continued to have sleepiness with his machine. MEDICATIONS: Albuterol, Eliquis, atorvastatin, insulin, betamethasone cream, buspirone, carvedilol, Zetia, fluticasone, gabapentin, levothyroxine, lisinopril, metformin, montelukast, naproxen, nitroglycerin, ranitidine, trazodone at bedtime. PHYSICAL EXAM: Patient in no distress. BP 106/58, HR 64, RR 18, temperature 98.2, oxygen saturation at room air 95%, Low position of soft palate. HEART: S1, S2 with some irregularities. Slight systolic murmur, 1+ ankle edema. Patient cannot hear, is deaf, using fiberglass model maker. Neck Supple, no JVD. Thyroid is not palpable. LUNGS Clear to percussion and to auscultation. Good air exchange. No wheezing or rhonchi. ABDOMEN Soft and nontender. Bowel sounds are present. No organomegaly appreciated. EXTREMITIES No clubbing or cyanosis. INVESTMENT PROFESSIONAL Awake, alert, and oriented X3. Cranial nerves 2 to 7 intact. There is no fasciculation or atrophy. noted. No focal deficits observed. IMPRESSION: 1. Obstructive sleep apnea-hypopnea syndrome. Patient cannot use his equipment secondary to mask problem and pressure. 2. Patient continued to have symptoms of significant excessive daytime sleepiness. 3. Coronary artery disease, status post stent insertion. 4. Asthma. 5. Hyperlipidemia. 6. Diabetes mellitus. 7. Back problems. 8. Hypothyroidism. 9. Anxiety. 10.Status post hernia repair. PLAN: 1. We will repeat the CPAP, if necessary BiPAP titration in the Sleep Center to check for necessary pressure and for possibly different types of the mask which will be comfortable for the patient. 2. Aggressive losing weight program. 3. Sleep hygiene with regular time in bed for at least 8 hours. 4. No driving if feeling sleepiness. 5. Answering on the question of the patient if he will continue to have sleepiness while his treatment for obstructive sleep apnea will be fully done. Then we may proceed with multiple sleep latency test for objective evaluation for his sleepiness during the day to rule out additional diagnosis of narcolepsy. Thank you very much for allowing me to participate in management of your patient. Sincerely, Micah Moran MD, PhD, FAASM Diplomat of [place] [employer] [employer] Transportation Escort of [facility] [place] MMODL / KALEBN: [id number] /
== END | disposition home or self-care (01) ==
LOC: SLEEP 13:24
PROVIDERS: ATTEND Internal Medicine
DX: G47.33 Obstructive sleep apnea (adult) (pediatric) (principal); I25.10 Atherosclerotic heart disease of native coronary artery without angina pectoris; J45.909 Unspecified asthma, uncomplicated; E78.5 Hyperlipidemia, unspecified; E11.9 Type 2 diabetes mellitus without complications; E03.9 Hypothyroidism, unspecified; F41.9 Anxiety disorder, unspecified; Z98.890 Other specified postprocedural states; Z79.4 Long term (current) use of insulin; Z79.899 Other long term (current) drug therapy

== ENCOUNTER → 2017-08-24 | Outpatient (CLI) | payer MEDICARE, OTHER ==
--- NOTE | 2017-08-24 14:42 | PN ---
PROGRESS NOTE DATE OF SERVICE: 08/24/2017 67-year-old gentleman has been followed in the Sleep Center for treatment of significant excessive daytime sleepiness and obstructive sleep apnea-hypopnea syndrome. In April of 2017, patient had coronary artery bypass graft without vein taken from his left low leg. He still has some discomfort in his chest at the present time. He did not restart to use his BiPAP equipment yet. His last BiPAP titration done on 07/04/2017, but the patient slept during titration only for about 35 minutes, so it is difficult to make any conclusion about the pressure in his machine on the basis of this study. I checked his BiPAP unit the pressure on automatic regimen, maximal inspiratory pressure of 13 cm of water, minimal expiratory pressure is 6 cm of water. The patient did not use it for the last several months. At that time when he used it before which was only for about 8 days and usage was only for about 1 hour pressure was 12.8/8.1 with the leak only 1 L/minute and with this level of pressure, apnea-hypopnea index was 8.4. Presently, patient continued to feel sleepiness during the day in significant range. His [place] Sleepiness Scale today is 9, although again he feels sleepiness. MEDICATIONS: Nitroglycerin, carvedilol, insulin, montelukast, trazodone, amiodarone, apixaban, atorvastatin, furosemide, gabapentin, levothyroxine, potassium supplement, ranitidine, senna. PHYSICAL EXAM: GENERAL Patient in no distress. VITAL SIGNS BP 132/86, HR 50, RR 16, weight 248, temp 96.9, oxygen saturation room air 95%. HEENT PERRLA, EOMI, evaluation of oropharynx showed extremely low position of soft palate. NECK Supple, no JVD. Thyroid is not palpable. LUNGS Clear to percussion and to auscultation. Good air exchange. No wheezing or rhonchi. HEART S1, S2 regular. No murmurs, gallops, or rubs. ABDOMEN Obese. Soft and nontender. Bowel sounds are present. No organomegaly appreciated. EXTREMITIES No clubbing or cyanosis. COMMODITY INDUSTRY ANALYST Awake, alert, and oriented X3. Cranial nerves 2 to 7 intact. There is no fasciculation or atrophy. noted. No focal deficits observed. IMPRESSION: 1. Obstructive sleep apnea-hypopnea syndrome. Recently patient did not use his machine after his heart surgery, still has some discomfort in his chest and discomfort because of his mask. 2. Obesity. 3. Coronary artery disease, status post CABG in April 2017. 4. Asthma. 5. Hyperlipidemia. 6. Diabetes mellitus. 7. Back problems. 8. Hypothyroidism. 9. Anxiety. 10.Status post hernia repair. 11.Some leg movements during the sleep study in mild to moderate range. PLAN: 1. Will treat patient with small nasal pillow mask. 2. Patient will continue to use his BiPAP equipment every night. 3. I will see the patient in followup visit to evaluate his clinical response on treatment and compliance with treatment. 4. Losing weight. 5. Precautions related to driving. No driving if feeling sleepiness. Thank you very much for allowing me to participate in management of your patient. Sincerely, Micah Moran MD, PhD, FAASM Diplomat of [employer] Well Service Floorperson of [facility] [place] MMODL / IJN: [id number] /
== END | disposition home or self-care (01) ==
LOC: SLEEP 13:30
PROVIDERS: ATTEND Internal Medicine
DX: G47.33 Obstructive sleep apnea (adult) (pediatric) (principal); G47.69 Other sleep related movement disorders; R07.89 Other chest pain; E66.9 Obesity, unspecified; J45.909 Unspecified asthma, uncomplicated; E78.5 Hyperlipidemia, unspecified; F41.9 Anxiety disorder, unspecified; E11.9 Type 2 diabetes mellitus without complications; E03.9 Hypothyroidism, unspecified; M54.9 Dorsalgia, unspecified; Z79.01 Long term (current) use of anticoagulants; Z79.4 Long term (current) use of insulin; Z95.1 Presence of aortocoronary bypass graft; Z99.89 Dependence on other enabling machines and devices; Z79.899 Other long term (current) drug therapy

== ENCOUNTER 2018-05-12 15:20 | Emergency (ER) | payer MEDICARE, OTHER ==
[2018-05-12 16:35] VITALS: TEMP 98.4
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
[2018-05-12 17:19] LABS: Basophils % (A) 0 %; Eosinophils # (A) 0.1 k/uL (0-0.7); Eosinophils % (A) 3 %; HCT 40.6 % (39.0-53.0); HGB 13.3 gm/dL (13.0-17.5); Lymphocytes # (A) 0.9 k/uL (1.0-4.8); Lymphocytes % (A) 18 %; MCH 33.6 pg (25.0-35.0); MCHC 32.7 g/dL (31.0-37.0); MCV 102.9 fL (80.0-100.0); Macrocytosis Slight; Mean Platelet Volume 6.9; Monocytes # (A) 0.3 k/uL (0-1.0); Monocytes % (A) 6 %; Neutrophils # (A) 3.6 k/uL (1.3-7.7); Neutrophils % (A) 70 %; Platelet Count 239 k/uL (150-450); RBC 3.94 m/uL (4.30-5.90); RDW 14.2 % (11.5-15.5); WBC 5.2 k/uL (3.8-10.6)
--- NOTE | 2018-05-12 17:29 | XR ---
EXAMINATION TYPE: XR tibia fibula LT DATE OF EXAM: 05/12/2018 COMPARISON: NONE HISTORY: Pain and swelling TECHNIQUE: 4 views FINDINGS: Knee joint is intact. Ankle joint appears intact. I see no fracture nor dislocation. Joint spaces are normal. There is mild subcutaneous edema. IMPRESSION: No fracture. There is mild soft tissue swelling around the lower leg.
[2018-05-12 17:30] LABS: Albumin 3.9 g/dL (3.5-5.0); Calcium 8.6 mg/dL (8.4-10.2); Total Bilirubin 1.8 mg/dL (0.2-1.3); Total Protein 6.9 g/dL (6.3-8.2)
[2018-05-12 17:44] LABS: INR 1.1 (<1.2); Partial Thromboplastin Time 24.7 sec (22.0-30.0); Prothrombin Time 10.3 sec (9.0-12.0)
[2018-05-12 17:48] LABS: Potassium 4.9 mmol/L (3.5-5.1)
--- NOTE | 2018-05-12 18:19 | US ---
EXAMINATION TYPE: US venous doppler duplex LE LT DATE OF EXAM: 05/12/2018 6:09 PM COMPARISON: NONE CLINICAL HISTORY: Pain. SIDE PERFORMED: left TECHNIQUE: The lower extremity deep venous system is examined utilizing real time linear array sonog jemal with graded compression, doppler sonography and color-flow sonography. VESSELS IMAGED: External Iliac Vein (EIV) Common Femoral Vein Deep Femoral Vein Greater Saphenous Vein * Femoral Vein Popliteal Vein Small Saphenous Vein * Proximal Calf Veins (* superficial vessels) Left Leg: neg for LLE dvt IMPRESSION: No evidence of deep venous thrombosis in the left leg.
[2018-05-12] MEDS: traMADol 50 MG TAB PO STA (18:33)
[2018-05-12 18:35] VITALS: BP 150/75; PULSE 57; RESP 17
== END 2018-05-12 18:44 | disposition home or self-care (01) ==
LOC: EC 15:20
DX: S80.12XA Contusion of left lower leg, initial encounter (principal); M79.662 Pain in left lower leg; I48.0 Paroxysmal atrial fibrillation; I25.10 Atherosclerotic heart disease of native coronary artery without angina pectoris; E11.40 Type 2 diabetes mellitus with diabetic neuropathy, unspecified; E78.5 Hyperlipidemia, unspecified; I10 Essential (primary) hypertension; I25.2 Old myocardial infarction; F32.9 Major depressive disorder, single episode, unspecified; G47.33 Obstructive sleep apnea (adult) (pediatric); Z99.89 Dependence on other enabling machines and devices; Z95.5 Presence of coronary angioplasty implant and graft; Z87.891 Personal history of nicotine dependence; Z79.01 Long term (current) use of anticoagulants; Z79.82 Long term (current) use of aspirin; Z79.4 Long term (current) use of insulin; Z79.899 Other long term (current) drug therapy; W22.8XXA Striking against or struck by other objects, initial encounter
CPT/HCPCS: 36415; 80053; 83605; 85025; 85610; 85730; 87040; 93005; 99284

== ENCOUNTER 2018-09-09 10:05 | Inpatient (IN) | payer MEDICARE, OTHER ==
[2018-09-09] MEDS ORDERED: ACETAMINOPHEN TAB 500 MG TAB PO STA (10:24)
[2018-09-09] MEDS ORDERED: IBUPROFEN 600 MG TAB PO STA (10:24)
--- NOTE | 2018-09-09 10:28 | ED ---
General Adult HPI - General Chief complaint: Fever Stated complaint: Cough, Fever Time Seen by Provider: 09/09/18 10:05 Source: EMS, RN notes reviewed Mode of arrival: EMS Limitations: language barrier - History of Present Illness Initial comments: This is a 68-year-old male who presents emergency Department who is also deaf. Patient comes in because he has a fever cough in complaining of some chest pain. Patient also says mouth is very dry. His difficulty bit inaccurate history but patient says he is a little short of breath as well. Patient states he has a little dizziness as well. Patient denied any headache patient denies numbness or weakness that is focal. Patient denies any vomiting or diarrhea. Patient denies any abdominal pain. Patient also states he has diffuse body aches - Related Data Home Medications Medication Instructions Recorded Confirmed Atorvastatin [Lipitor] 10 mg PO DAILY 11/27/15 09/09/18 Nitroglycerin Sl Tabs [Nitrostat] 0.4 mg SUBLINGUAL Q5M PRN 03/05/16 09/09/18 Carvedilol [Coreg] 25 mg PO BID 01/30/17 09/09/18 Amiodarone [Cordarone] 200 mg PO DAILY 05/12/18 09/09/18 Apixaban [Eliquis] 5 mg PO BID 05/12/18 09/09/18 Aspirin [Adult Low Dose Aspirin EC] 81 mg PO DAILY 05/12/18 09/09/18 Baclofen [Lioresal] 10 mg PO TID 05/12/18 09/09/18 Ferrous Sulfate [Feosol] 325 mg PO BID 05/12/18 09/09/18 Furosemide [Lasix] 20 mg PO DAILY 05/12/18 09/09/18 Levothyroxine Sodium [Synthroid] 112 mcg PO DAILY 05/12/18 09/09/18 Lisinopril [Prinivil] 5 mg PO DAILY 05/12/18 09/09/18 Pantoprazole Sodium [Protonix] 40 mg PO DAILY 05/12/18 09/09/18 Potassium Chloride ER [K-Dur 10] 10 meq PO DAILY 05/12/18 09/09/18 busPIRone HCL [Buspar] 7.5 mg PO BID 05/12/18 09/09/18 metFORMIN HCL [Glucophage] 500 mg PO BID 05/12/18 09/09/18 Artificial Tears-Hypromellose 1 drop BOTH EYES BID 09/09/18 09/09/18 [Artificial Tear Drops] Gabapentin 800 mg PO TID 09/09/18 09/09/18 Insulin Aspart [NovoLOG] 10 unit SQ TID 09/09/18 09/09/18 Insulin Detemir (Levemir) [Levemir] 28 unit SQ DAILY 09/09/18 09/09/18 Montelukast [Singulair] 10 mg PO DAILY 09/09/18 09/09/18 Allergies Allergy/AdvReac Type Severity Reaction Status Date / Time No Known Allergies Allergy Verified 09/09/18 12:00 Review of Systems ROS Statement: Those systems with pertinent positive or pertinent negative responses have been documented in the HPI. ROS Other: All systems not noted in ROS Statement are negative. Past Medical History Past Medical History: Atrial Fibrillation, Coronary Artery Disease (CAD), Diabetes Mellitus, Hearing Disorder / Deafness, Hyperlipidemia, Hypertension, Myocardial Infarction ([place]), Skin Disorder, Sleep Apnea/CPAP/BIPAP Additional Past Medical History / Comment(s): Pt is deaf, IDDM type II, bilateral hands/arms and leg/feet neuropathy, JAMEY with no current CPAP use, psoriasis, constipation, pt needs oral surgery. paroxsymal afib. Pt is a Jehovah Witness and is not to receive blood. Last Myocardial Infarction Date:: 2008 History of Any Multi-Drug Resistant Organisms: None Reported Past Surgical History: Heart Catheterization With Stent Additional Past Surgical History / Comment(s): One cardiac stent placed approx 2008 at [facility], Past Anesthesia/Blood Transfusion Reactions: No Reported Reaction Additional Past Anesthesia/Blood Transfusion Reaction / Comment(s): DOES NOT RECIEVE BLOOD TRANSFUSIONS Date of Last Stent Placement:: 2008 Past Psychological History: Depression Smoking Status: Former smoker Past Alcohol Use History: None Reported Past Drug Use History: None Reported - Past Family History Father History Unknown: Yes Family Medical History: Cancer Mother History Unknown: Yes General Exam - General Exam Comments Initial Comments: GENERAL: Patient is well-developed and well-nourished. Patient is nontoxic and well- hydrated and is in mild distress. Patient is warm to touch. ENT: Neck is soft and supple. No significant lymphadenopathy is noted. Oropharynx is clear. Moist mucous membranes. Neck has full range of motion without eliciting any pain. EYES: The sclera were anicteric and conjunctiva were pink and moist. Extraocular movements were intact and pupils were equal round and reactive to light. Eyelids were unremarkable. PULMONARY: Patient has crackles in the left base. CARDIOVASCULAR: There is a regular rate and rhythm without any murmurs gallops or rubs. ABDOMEN: Soft and nontender with normal bowel sounds. No palpable organomegaly was noted. There is no palpable pulsatile mass. SKIN: Skin is clear with no lesions or rashes and otherwise unremarkable. NEUROLOGIC: Patient is alert and oriented x3. Cranial nerves II through XII are grossly intact. Motor and sensory are also intact. Normal speech, volume and content. Symmetrical smile. MUSCULOSKELETAL: Normal extremities with adequate strength and full range of motion. 1+ edema bilaterally LYMPHATICS: No significant lymphadenopathy is noted PSYCHIATRIC: Normal psychiatric evaluation. Limitations: language barrier Course Vital Signs 09/09/18 09/09/18 09/09/18 10:16 11:00 11:04 Temperature 101.5 F H Pulse Rate 70 88 68 Respiratory 20 20 Rate Blood Pressure 102/86 88/63 O2 Sat by Pulse 90 L 89 L Oximetry 09/09/18 09/09/18 09/09/18 11:14 12:00 13:05 Temperature 99.8 F H Pulse Rate 72 65 70 Respiratory 20 Rate Blood Pressure 103/55 O2 Sat by Pulse 92 L Oximetry 09/09/18 13:16 Temperature Pulse Rate 72 Respiratory Rate Blood Pressure O2 Sat by Pulse Oximetry Medical Decision Making - Medical Decision Making Patient's radial body weight is 72.6 kg and if there is to be fluid resuscitation will be based on that weight. EKG shows normal sinus rhythm at 65 bpm CA interval 282 QRS is under 12 QT interval 44 QTC is 420. Patient's EKG shows no ST segment elevation. Patient has Q waves inferiorly. Chest x-ray shows no acute abnormality. Patient's influenza A is positive. I give the patient Tamiflu emergency Patient had a breathing treatment and he continued to wheeze after that but the patient's pulse ox was between 88 on 4 L. So I gave the patient another breathing treatment and an going to admit the patient. I spoke with the [facility] admitted the patient I wrote admitting orders I consulted pulmonary continued steroids and Tamiflu. - Lab Data Result diagrams: 09/09/18 10:55 09/09/18 10:55 Lab Results 09/09/18 09/09/18 09/09/18 Range/Units 10:55 10:55 10:55 WBC 6.9 (3.8-10.6) k/uL RBC 4.03 L (4.30-5.90) m/uL Hgb 13.1 (13.0-17.5) gm/dL Hct 40.4 (39.0-53.0) % MCV 100.3 H (80.0-100.0) fL MCH 32.6 (25.0-35.0) pg MCHC 32.5 (31.0-37.0) g/dL RDW 14.0 (11.5-15.5) % Plt Count 175 (150-450) k/uL Neutrophils % 84 % Lymphocytes % 6 % Monocytes % 6 % Eosinophils % 2 % Basophils % 0 % Neutrophils # 5.8 (1.3-7.7) k/uL Lymphocytes # 0.4 L (1.0-4.8) k/uL Monocytes # 0.4 (0-1.0) k/uL Eosinophils # 0.1 (0-0.7) k/uL Basophils # 0.0 (0-0.2) k/uL Macrocytosis Slight PT (9.0-12.0) sec INR (<1.2) APTT (22.0-30.0) sec D-Dimer (<0.60) mg/L FEU Sodium 135 L (137-145) mmol/L Potassium 4.6 (3.5-5.1) mmol/L Chloride 96 L (98-107) mmol/L Carbon Dioxide 30 (22-30) mmol/L Anion Gap 9 mmol/L BUN 16 (9-20) mg/dL Creatinine 1.17 (0.66-1.25) mg/dL Est GFR (CKD-EPI)AfAm 73 (>60 ml/min/1.73 sqM) Est GFR (CKD-EPI)NonAf 63 (>60 ml/min/1.73 sqM) Glucose 184 H (74-99) mg/dL Plasma Lactic Acid Don 1.7 (0.7-2.0) mmol/L Calcium 8.2 L (8.4-10.2) mg/dL Total Bilirubin 1.9 H (0.2-1.3) mg/dL AST 30 (17-59) U/L ALT 45 (21-72) U/L Alkaline Phosphatase 66 (38-126) U/L Troponin I (0.000-0.034) ng/mL Total Protein 5.8 L (6.3-8.2) g/dL Albumin 3.5 (3.5-5.0) g/dL Influenza Type A RNA (Not Detectd) Influenza Type B (PCR) (Not Detectd) 09/09/18 09/09/18 09/09/18 Range/Units 10:55 10:55 10:55 WBC (3.8-10.6) k/uL RBC (4.30-5.90) m/uL Hgb (13.0-17.5) gm/dL Hct (39.0-53.0) % MCV (80.0-100.0) fL MCH (25.0-35.0) pg MCHC (31.0-37.0) g/dL RDW (11.5-15.5) % Plt Count (150-450) k/uL Neutrophils % % Lymphocytes % % Monocytes % % Eosinophils % % Basophils % % Neutrophils # (1.3-7.7) k/uL Lymphocytes # (1.0-4.8) k/uL Monocytes # (0-1.0) k/uL Eosinophils # (0-0.7) k/uL Basophils # (0-0.2) k/uL Macrocytosis PT 11.6 (9.0-12.0) sec INR 1.1 (<1.2) APTT 26.3 (22.0-30.0) sec D-Dimer 0.27 (<0.60) mg/L FEU Sodium (137-145) mmol/L Potassium (3.5-5.1) mmol/L Chloride (98-107) mmol/L Carbon Dioxide (22-30) mmol/L Anion Gap mmol/L BUN (9-20) mg/dL Creatinine (0.66-1.25) mg/dL Est GFR (CKD-EPI)AfAm (>60 ml/min/1.73 sqM) Est GFR (CKD-EPI)NonAf (>60 ml/min/1.73 sqM) Glucose (74-99) mg/dL Plasma Lactic Acid Don (0.7-2.0) mmol/L Calcium (8.4-10.2) mg/dL Total Bilirubin (0.2-1.3) mg/dL AST (17-59) U/L ALT (21-72) U/L Alkaline Phosphatase (38-126) U/L Troponin I 0.034 (0.000-0.034) ng/mL Total Protein (6.3-8.2) g/dL Albumin (3.5-5.0) g/dL Influenza Type A RNA (Not Detectd) Influenza Type B (PCR) (Not Detectd) 09/09/18 Range/Units 11:05 WBC (3.8-10.6) k/uL RBC (4.30-5.90) m/uL Hgb (13.0-17.5) gm/dL Hct (39.0-53.0) % MCV (80.0-100.0) fL MCH (25.0-35.0) pg MCHC (31.0-37.0) g/dL RDW (11.5-15.5) % Plt Count (150-450) k/uL Neutrophils % % Lymphocytes % % Monocytes % % Eosinophils % % Basophils % % Neutrophils # (1.3-7.7) k/uL Lymphocytes # (1.0-4.8) k/uL Monocytes # (0-1.0) k/uL Eosinophils # (0-0.7) k/uL Basophils # (0-0.2) k/uL Macrocytosis PT (9.0-12.0) sec INR (<1.2) APTT (22.0-30.0) sec D-Dimer (<0.60) mg/L FEU Sodium (137-145) mmol/L Potassium (3.5-5.1) mmol/L Chloride (98-107) mmol/L Carbon Dioxide (22-30) mmol/L Anion Gap mmol/L BUN (9-20) mg/dL Creatinine (0.66-1.25) mg/dL Est GFR (CKD-EPI)AfAm (>60 ml/min/1.73 sqM) Est GFR (CKD-EPI)NonAf (>60 ml/min/1.73 sqM) Glucose (74-99) mg/dL Plasma Lactic Acid Don (0.7-2.0) mmol/L Calcium (8.4-10.2) mg/dL Total Bilirubin (0.2-1.3) mg/dL AST (17-59) U/L ALT (21-72) U/L Alkaline Phosphatase (38-126) U/L Troponin I (0.000-0.034) ng/mL Total Protein (6.3-8.2) g/dL Albumin (3.5-5.0) g/dL Influenza Type A RNA Detected H (Not Detectd) Influenza Type B (PCR) Not Detected (Not Detectd) Critical Care Time Critical Care Time: Yes Total Critical Care Time: 35 Disposition Clinical Impression: Influenza, Hypoxia, Bronchospasm Disposition: ADMITTED IP TO THIS HOSP Referrals: Nonstaff,Physician [Primary Care Provider] - 1-2 days Time of Disposition: 13:15
[2018-09-09] MEDS ORDERED: IPRATROPIUM-ALBUTEROL 3 ML NEB INHALATION STA ×2 (10:55→12:40)
[2018-09-09] MEDS: SODIUM CHLORIDE 0.9% 500 ML 500 ML IV SCH ×4 (10:59→12:29)
[2018-09-09] MEDS ORDERED: methylPREDNISolone SOD SUCCI 125 MG/2 ML VIAL IV STA (11:06)
[2018-09-09 11:13] LABS: Basophils % (A) 0 %; Eosinophils # (A) 0.1 k/uL (0-0.7); Eosinophils % (A) 2 %; HCT 40.4 % (39.0-53.0); HGB 13.1 gm/dL (13.0-17.5); Lymphocytes # (A) 0.4 k/uL (1.0-4.8); Lymphocytes % (A) 6 %; MCH 32.6 pg (25.0-35.0); MCHC 32.5 g/dL (31.0-37.0); MCV 100.3 fL (80.0-100.0); Macrocytosis Slight; Mean Platelet Volume 6.8; Monocytes # (A) 0.4 k/uL (0-1.0); Monocytes % (A) 6 %; Neutrophils # (A) 5.8 k/uL (1.3-7.7); Neutrophils % (A) 84 %; Platelet Count 175 k/uL (150-450); RBC 4.03 m/uL (4.30-5.90); WBC 6.9 k/uL (3.8-10.6)
[2018-09-09 11:22] LABS: Albumin 3.5 g/dL (3.5-5.0); Calcium 8.2 mg/dL (8.4-10.2); Potassium 4.6 mmol/L (3.5-5.1); Total Bilirubin 1.9 mg/dL (0.2-1.3); Total Protein 5.8 g/dL (6.3-8.2)
[2018-09-09 11:29] LABS: INR 1.1 (<1.2); Partial Thromboplastin Time 26.3 sec (22.0-30.0); Prothrombin Time 11.6 sec (9.0-12.0)
--- NOTE | 2018-09-09 11:50 | XR ---
EXAMINATION TYPE: XR chest 2V DATE OF EXAM: 09/09/2018 COMPARISON: 01/30/2017 INDICATION: Fever TECHNIQUE: Frontal and lateral views of the chest are obtained. Degree of inspiration is somewhat l imited. FINDINGS: The heart size is normal. The pulmonary vasculature is normal. The lungs are clear. Sternotomy wires from prior CABG are present. IMPRESSION: 1. No acute pulmonary process.
[2018-09-09] MEDS ORDERED: OSELTAMIVIR 75 MG CAP PO STA (11:51)
[2018-09-09] MEDS ORDERED: SODIUM CHLORIDE 0.9% 1,000 ML IV ONE (13:21)
[2018-09-09] MEDS ORDERED: NITROGLYCERIN SL TABS 0.4 MG TAB SUBLINGUAL PRN (14:57)
[2018-09-09] MEDS: IPRATROPIUM-ALBUTEROL 3 ML NEB INHALATION SCH ×2 (15:13→22:02)
[2018-09-09 15:20] VITALS: BMI 39.2
[2018-09-09] MEDS: ACETAMINOPHEN TAB 325 MG TAB PO PRN (15:44)
[2018-09-09] MEDS: GABAPENTIN 400 MG CAP PO SCH ×2 (15:44→21:56)
[2018-09-09] MEDS: BACLOFEN 10 MG TAB PO SCH ×2 (15:44→21:56)
[2018-09-09] MEDS ORDERED: HEPARIN SODIUM,PORCINE 5,000 UNIT/ML 1 ML VIAL SQ SCH (16:00)
--- NOTE | 2018-09-09 16:09 | P.CNPUL ---
History of Present Illness Consult date: 09/09/18 Chief complaint: Acute influenza infection History of present illness: This is a 68-year-old female patient who is deaf and the patient is coming into the MRSA problem because of fever and cough congestion shortness of breath and chest pain. The patient was feeling slightly dizziness. He denied having any nausea vomiting diarrhea or abdominal pain. He was complaining of diffuse body aches. In the ED, patient was found to be febrile with a temperature 1.5. Pulse ox was 90% on room air and was dropping as low as 89%. Influenza screen was positive for influenza A. The patient was started on Tamiflu. Chest x-ray showed no acute abnormalities. EKG showed normal sinus rhythm. The patient was placed on oxygen and it was titrated up to 4 L of oxygen nasal cannula. The patient was admitted to the medical floor and a pulmonary consultation was requested This patient is known to have coronary artery disease with previous coronary stenting. The patient is also diabetic has approximately atrial fibrillation and has hypertension and hyperlipidemia. Review of Systems Constitutional: Reports fatigue, Reports fever Eyes: denies as per HPI, denies blurred vision, denies bulging eye, denies decreased vision, denies diplopia, denies discharge, denies dry eye, denies irritation, denies itching, denies pain, denies photophobia, denies loss of peripheral vision, denies loss of vision, denies tunnel vision/blind spots Ears: bilateral: decreased hearing, deny: ear discharge, earache, tinnitus Ears, nose, mouth and throat: Denies headache, Denies sore throat Cardiovascular: Reports dyspnea on exertion Respiratory: Reports congestion, Reports cough, Reports dyspnea Gastrointestinal: Denies abdominal pain, Denies diarrhea, Denies nausea, Denies vomiting Genitourinary: Reports as per HPI Musculoskeletal: Reports as per HPI Musculoskeletal: absent: ankle pain, ankle stiffness, ankle swelling, as per HPI , elbow pain, elbow stiffness, elbow swelling, foot pain, foot stiffness, foot swelling, hand pain, hand stiffness, hand swelling, hip pain, hip stiffness, hip swelling, knee pain, knee stiffness, knee swelling, shoulder pain, shoulder stiffness, shoulder swelling, wrist pain, wrist stiffness, wrist swelling Integumentary: Reports as per HPI Neurological: Reports as per HPI, Reports weakness Endocrine: Reports as per HPI Hematologic/Lymphatic: Reports as per HPI Allergic/Immunologic: Reports as per HPI Past Medical History Past Medical History: Atrial Fibrillation, Coronary Artery Disease (CAD), Diabetes Mellitus, Hearing Disorder / Deafness, Hyperlipidemia, Hypertension, Myocardial Infarction ([place]), Skin Disorder, Sleep Apnea/CPAP/BIPAP Additional Past Medical History / Comment(s): The patient has coronary artery disease, paroxysmal atrial fibrillation, diabetes 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 Last Myocardial Infarction Date:: 2008 History of Any Multi-Drug Resistant Organisms: None Reported Past Surgical History: Heart Catheterization With Stent Additional Past Surgical History / Comment(s): One cardiac stent placed approx 2008 at [facility], Past Anesthesia/Blood Transfusion Reactions: No Reported Reaction Additional Past Anesthesia/Blood Transfusion Reaction / Comment(s): DOES NOT RECIEVE BLOOD TRANSFUSIONS Date of Last Stent Placement:: 2008 Past Psychological History: Depression Smoking Status: Former smoker Past Alcohol Use History: None Reported Past Drug Use History: None Reported - Past Family History Father History Unknown: Yes Family Medical History: Cancer Mother History Unknown: Yes Medications and Allergies Home Medications Medication Instructions Recorded Confirmed Type Atorvastatin [Lipitor] 10 mg PO DAILY 11/27/15 09/09/18 History Nitroglycerin Sl Tabs [Nitrostat] 0.4 mg SUBLINGUAL Q5M PRN 03/05/16 09/09/18 History Carvedilol [Coreg] 25 mg PO BID 01/30/17 09/09/18 History Amiodarone [Cordarone] 200 mg PO DAILY 05/12/18 09/09/18 History Apixaban [Eliquis] 5 mg PO BID 05/12/18 09/09/18 History Aspirin [Adult Low Dose Aspirin EC] 81 mg PO DAILY 05/12/18 09/09/18 History Baclofen [Lioresal] 10 mg PO TID 05/12/18 09/09/18 History Ferrous Sulfate [Feosol] 325 mg PO BID 05/12/18 09/09/18 History Furosemide [Lasix] 20 mg PO DAILY 05/12/18 09/09/18 History Levothyroxine Sodium [Synthroid] 112 mcg PO DAILY 05/12/18 09/09/18 History Lisinopril [Prinivil] 5 mg PO DAILY 05/12/18 09/09/18 History Pantoprazole Sodium [Protonix] 40 mg PO DAILY 05/12/18 09/09/18 History Potassium Chloride ER [K-Dur 10] 10 meq PO DAILY 05/12/18 09/09/18 History busPIRone HCL [Buspar] 7.5 mg PO BID 05/12/18 09/09/18 History metFORMIN HCL [Glucophage] 500 mg PO BID 05/12/18 09/09/18 History Artificial Tears-Hypromellose 1 drop BOTH EYES BID 09/09/18 09/09/18 History [Artificial Tear Drops] Gabapentin 800 mg PO TID 09/09/18 09/09/18 History Insulin Aspart [NovoLOG] 10 unit SQ TID 09/09/18 09/09/18 History Insulin Detemir (Levemir) [Levemir] 28 unit SQ DAILY 09/09/18 09/09/18 History Montelukast [Singulair] 10 mg PO DAILY 09/09/18 09/09/18 History Allergies Allergy/AdvReac Type Severity Reaction Status Date / Time No Known Allergies Allergy Verified 09/09/18 12:00 Physical Exam Vitals: Vital Signs Temp Pulse Resp BP Pulse Ox 09/09/18 13:49 98.5 F 64 20 136/69 93 L 09/09/18 13:16 72 09/09/18 13:05 70 09/09/18 12:00 99.8 F H 65 20 103/55 92 L 09/09/18 11:14 72 09/09/18 11:04 68 09/09/18 11:00 88 20 88/63 89 L 09/09/18 10:16 101.5 F H 70 20 102/86 90 L Intake and Output 09/08/18 09/09/18 09/09/18 22:59 06:59 14:59 Other: Weight 113.398 kg GENERAL: Patient is well-developed and well-nourished. Patient is nontoxic and well- hydrated and is in mild distress. Patient is warm to touch. ENT: Neck is soft and supple. No significant lymphadenopathy is noted. Oropharynx is clear. Moist mucous membranes. Neck has full range of motion without eliciting any pain. EYES: The sclera were anicteric and conjunctiva were pink and moist. Extraocular movements were intact and pupils were equal round and reactive to light. Eyelids were unremarkable. PULMONARY: Patient has crackles in the left base. CARDIOVASCULAR: There is a regular rate and rhythm without any murmurs gallops or rubs. ABDOMEN: Soft and nontender with normal bowel sounds. No palpable organomegaly was noted. There is no palpable pulsatile mass. SKIN: Skin is clear with no lesions or rashes and otherwise unremarkable. NEUROLOGIC: Patient is alert and oriented x3. Cranial nerves II through XII are grossly intact. Motor and sensory are also intact. Normal speech, volume and content. Symmetrical smile. MUSCULOSKELETAL: Normal extremities with adequate strength and full range of motion. 1+ edema bilaterally LYMPHATICS: No significant lymphadenopathy is noted PSYCHIATRIC: Normal psychiatric evaluation. Limitations: language barrier Results - Laboratory Findings CBC and BMP: 09/09/18 10:55 09/09/18 10:55 PT/INR, D-dimer PT 11.6 sec (9.0-12.0) 09/09/18 10:55 INR 1.1 (<1.2) 09/09/18 10:55 D-Dimer 0.27 mg/L FEU (<0.60) 09/09/18 10:55 Abnormal lab findings: Abnormal Labs 09/09/18 09/09/18 09/09/18 10:55 10:55 11:05 RBC 4.03 L MCV 100.3 H Lymphocytes # 0.4 L Sodium 135 L Chloride 96 L Glucose 184 H Calcium 8.2 L Total Bilirubin 1.9 H Total Protein 5.8 L Influenza Type A RNA Detected H - Diagnostic Findings Chest x-ray: image reviewed Assessment and Plan Plan: Assessment 1 acute influenza A syndrome with pulmonary symptoms of tracheobronchitis most likely secondary viral infection. 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 The patient is also on amiodarone 11 hypothyroidism maintained on thyroid hormone replacement PLAN The patient has an acute febrile illness secondary to viral tracheobronchitis/ pneumonia secondary to influenza A infection. The patient is on Tamiflu and the patient will placed on Tamiflu 75 mg by mouth twice a day. Fluid resuscitation with IV normal saline today to 75 mL an hour. Tylenol for fever. DuoNeb nebulized treatments around the clock reduction therapy to maintain a saturation above 2 L per minute nasal cannula. The patient was started on systemic steroids and will monitor the blood sugars and use insulin drip if needed. For now we'll resume Levemir insulin 28 units daily and NovoLog 10 units with meals and a sliding scale coverage. Resume amiodarone, Eliquis, aspirin, Lipitor, Coreg, and Synthroid. Resume Singulair and Protonix. Resume metformin and BuSpar. Hold diuretics for now and the patient will be taken off Lasix. We'll continue to follow.
[2018-09-09 16:26] LABS: Appearance,Urine Clear (Clear); Bilirubin,Urine Negative (Negative); Blood,Urine Negative (Negative); Color,Urine Yellow; Glucose,Urine (UA) 3+ (Negative); Ketones,Urine Negative (Negative); Leukocyte Esterase,Urine Negative (Negative); Nitrite,Urine Negative (Negative); PH, Urine 5.5 (5.0-8.0); Protein,Urine Trace (Negative); Specific Gravity,Urine 1.013 (1.001-1.035); Urobilinogen,Urine <2.0 mg/dL (<2.0)
[2018-09-09 17:02] LABS: Glucose,Whole Blood 345 mg/dL (75-99)
[2018-09-09] MEDS: CARVEDILOL 12.5 MG TAB PO SCH (17:29)
[2018-09-09] MEDS: methylPREDNISolone SOD SUCCI 125 MG/2 ML VIAL IV SCH (17:30)
[2018-09-09] MEDS: INSULIN ASPART (NovoLOG) 100 UNIT/ML VIAL SQ SCH ×3 (17:30→21:57)
[2018-09-09 21:00] LABS: Glucose,Whole Blood 325 mg/dL (75-99)
[2018-09-09] MEDS: busPIRone HCl 5 MG TAB PO SCH (21:55)
[2018-09-09] MEDS: ARTIFICIAL TEARS-HYPROMELLOSE DROPS 15 ML BTL BOTH EYES SCH (21:56)
[2018-09-09] MEDS: APIXABAN 5 MG TAB PO SCH (21:56)
[2018-09-09] MEDS: metFORMIN 500 MG TAB PO SCH (21:56)
[2018-09-09] MEDS: FERROUS SULFATE 325 MG TAB PO SCH (21:56)
[2018-09-09] MEDS: OSELTAMIVIR 75 MG CAP PO SCH (21:56)
--- NOTE | 2018-09-09 23:34 | P.HPIM ---
History of Present Illness H&P Date: 09/09/18 Chief Complaint: Cough and congestion Patient is a 68-year-old male came to ER with complaints of cough congestion, fever and shortness of breath. Patient does have a history of coronary disease with previous stenting and atrial fibrillation on anticoagulation, hypertension , hyperlipidemia, diabetes type 2 insulin-dependent hearing disorder, obstructive sleep apnea on CPAP and other multiple medical problems. Patient has been having worsening symptoms for the past couple of days. Patient was febrile on admission with T-max of 101.5 Complete history could not be obtained from the patient due to unavailability of ehs teacher at this time. Patient was tested positive for influenza A in the ER. Chest x-ray showed no acute cardio pulmonary Process EKG showed normal sinus rhythm. No leukocytosis. Review of Systems Constitutional: Patient denies any fever or chills . No generalized weakness or weight loss. Abdomen: Patient denied nausea vomiting and diarrhea and abdominal pain. Cardiovascular: Patient denies any chest pain or short of breath no palpitations. Respiratory: Patient does have cough and congestion. No sputum production. Patient does have shortness of breath. Past Medical History Past Medical History: Atrial Fibrillation, Coronary Artery Disease (CAD), Diabetes Mellitus, Hearing Disorder / Deafness, Hyperlipidemia, Hypertension, Myocardial Infarction ([place]), Skin Disorder, Sleep Apnea/CPAP/BIPAP Additional Past Medical History / Comment(s): Pt is deaf, IDDM type II, bilateral hands/arms and leg/feet neuropathy, JAMEY with no current CPAP use, psoriasis, constipation, pt needs oral surgery. paroxsymal afib. Pt is a [employer] and is not to receive blood. Last Myocardial Infarction Date:: 2008 History of Any Multi-Drug Resistant Organisms: None Reported Past Surgical History: Heart Catheterization With Stent Additional Past Surgical History / Comment(s): One cardiac stent placed approx 2008 at [facility], Past Anesthesia/Blood Transfusion Reactions: No Reported Reaction Additional Past Anesthesia/Blood Transfusion Reaction / Comment(s): DOES NOT RECIEVE BLOOD TRANSFUSIONS Date of Last Stent Placement:: 2008 Past Psychological History: Depression Smoking Status: Former smoker Past Alcohol Use History: None Reported Past Drug Use History: None Reported - Past Family History Father History Unknown: Yes Family Medical History: Cancer Mother History Unknown: Yes Medications and Allergies Home Medications Medication Instructions Recorded Confirmed Type Atorvastatin [Lipitor] 10 mg PO DAILY 11/27/15 09/09/18 History Nitroglycerin Sl Tabs [Nitrostat] 0.4 mg SUBLINGUAL Q5M PRN 03/05/16 09/09/18 History Carvedilol [Coreg] 25 mg PO BID 01/30/17 09/09/18 History Amiodarone [Cordarone] 200 mg PO DAILY 05/12/18 09/09/18 History Apixaban [Eliquis] 5 mg PO BID 05/12/18 09/09/18 History Aspirin [Adult Low Dose Aspirin EC] 81 mg PO DAILY 05/12/18 09/09/18 History Baclofen [Lioresal] 10 mg PO TID 05/12/18 09/09/18 History Ferrous Sulfate [Feosol] 325 mg PO BID 05/12/18 09/09/18 History Furosemide [Lasix] 20 mg PO DAILY 05/12/18 09/09/18 History Levothyroxine Sodium [Synthroid] 112 mcg PO DAILY 05/12/18 09/09/18 History Lisinopril [Prinivil] 5 mg PO DAILY 05/12/18 09/09/18 History Pantoprazole Sodium [Protonix] 40 mg PO DAILY 05/12/18 09/09/18 History Potassium Chloride ER [K-Dur 10] 10 meq PO DAILY 05/12/18 09/09/18 History busPIRone HCL [Buspar] 7.5 mg PO BID 05/12/18 09/09/18 History metFORMIN HCL [Glucophage] 500 mg PO BID 05/12/18 09/09/18 History Artificial Tears-Hypromellose 1 drop BOTH EYES BID 09/09/18 09/09/18 History [Artificial Tear Drops] Gabapentin 800 mg PO TID 09/09/18 09/09/18 History Insulin Aspart [NovoLOG] 10 unit SQ TID 09/09/18 09/09/18 History Insulin Detemir (Levemir) [Levemir] 28 unit SQ DAILY 09/09/18 09/09/18 History Montelukast [Singulair] 10 mg PO DAILY 09/09/18 09/09/18 History Allergies Allergy/AdvReac Type Severity Reaction Status Date / Time No Known Allergies Allergy Verified 09/09/18 12:00 Physical Exam Vitals: Vital Signs Temp Pulse Resp BP Pulse Ox 09/09/18 13:49 98.5 F 64 20 136/69 93 L 09/09/18 13:16 72 09/09/18 13:05 70 09/09/18 12:00 99.8 F H 65 20 103/55 92 L 09/09/18 11:14 72 09/09/18 11:04 68 09/09/18 11:00 88 20 88/63 89 L 09/09/18 10:16 101.5 F H 70 20 102/86 90 L Intake and Output 09/08/18 09/09/18 09/09/18 22:59 06:59 14:59 Other: Weight 113.398 kg PHYSICAL EXAMINATION: Patient is lying in the bed comfortably, no acute distress, awake alert and oriented.. HEENT: Normocephalic. Neck is supple. Pupils reactive. Nostrils clear. Oral cavity is moist. Ears reveal no drainage. Neck reveals no JVD, carotid bruits, or thyromegaly. CHEST EXAMINATION: Trachea is central. Symmetrical expansion. Bibasilar diffuse rhonchi. No wheezing. Nonlabored breathing.. CARDIAC: Normal S1, S2 with no gallops. No murmurs ABDOMEN: Soft. Bowel sounds normal. No organomegaly. No abdominal bruits. Extremities: reveal no edema. No clubbing or cyanosis Neurologically awake, alert, oriented x3 with well-coordinated movements. Hearing disorder and difficulty in speech. No focal deficits noted Skin: No rash or skin lesions. Psychiatric: Coperative. Could not be assessed completely. Musculoskeletal: No joint swelling or deformity. Normal range of motion. Results CBC & Chem 7: 09/09/18 10:55 09/09/18 10:55 Labs: Abnormal Lab Results - Last 24 Hours (Table) 09/09/18 09/09/18 09/09/18 Range/Units 10:55 10:55 11:05 RBC 4.03 L (4.30-5.90) m/uL MCV 100.3 H (80.0-100.0) fL Lymphocytes # 0.4 L (1.0-4.8) k/uL Sodium 135 L (137-145) mmol/L Chloride 96 L (98-107) mmol/L Glucose 184 H (74-99) mg/dL Calcium 8.2 L (8.4-10.2) mg/dL Total Bilirubin 1.9 H (0.2-1.3) mg/dL Total Protein 5.8 L (6.3-8.2) g/dL Influenza Type A RNA Detected H (Not Detectd) Thrombosis Risk Factor Assmnt - DVT/VTE Prophylaxis DVT/VTE Prophylaxis: Pharmacologic Prophylaxis ordered Assessment and Plan Assessment: Acute influenza A infection. Possible viral pneumonia. Acute hypoxic respiratory failure requiring oxygen on admission Hyperglycemia with uncontrolled diabetes type 2 due to steroids Coronary artery disease and history of stent placement Paroxysmal atrial fibrillation on anticoagulations with Eliquis Obstructive sleep apnea. Currently not using CPAP Hypertension Diabetes type 2 insulin-dependent Hyperlipidemia Hypothyroidism Morbid obesity with BMI 36.9 Patient recently continued on IV hydration and Tamiflu. Continue with duo nebs and IV methylprednisolone. Continue with oxygen therapy. Continue with insulin regimen at home with Levemir 28 units daily along with insulin siding scale and NovoLog 10 units 3 times a day before meals. Continue with home cardiac medications including anticoagulation with Eliquis and other medications. follow closely. Pulmonary is following. Further recommendations based on the clinical course. Time with Patient: Greater than 30
[2018-09-10] MEDS: methylPREDNISolone SOD SUCCI 125 MG/2 ML VIAL IV SCH ×5 (00:36→23:58)
[2018-09-10] MEDS: IPRATROPIUM-ALBUTEROL 3 ML NEB INHALATION SCH ×6 (01:23→18:57)
[2018-09-10] MEDS: LEVOTHYROXINE 112 MCG TAB PO SCH (06:02)
[2018-09-10] MEDS: INSULIN ASPART (NovoLOG) 100 UNIT/ML VIAL SQ SCH ×7 (08:22→21:23)
[2018-09-10] MEDS: ACETAMINOPHEN TAB 325 MG TAB PO PRN (08:42)
[2018-09-10] MEDS: CARVEDILOL 12.5 MG TAB PO SCH ×2 (08:46→18:38)
[2018-09-10] MEDS: ASPIRIN 81 MG PO SCH (08:46)
[2018-09-10] MEDS: GABAPENTIN 400 MG CAP PO SCH ×3 (08:46→21:22)
[2018-09-10] MEDS: BACLOFEN 10 MG TAB PO SCH ×3 (08:47→21:23)
[2018-09-10] MEDS: ATORVASTATIN 10 MG TAB PO SCH (08:47)
[2018-09-10] MEDS: FERROUS SULFATE 325 MG TAB PO SCH ×2 (08:47→21:22)
[2018-09-10] MEDS: metFORMIN 500 MG TAB PO SCH ×2 (08:47→21:54)
[2018-09-10] MEDS: MONTELUKAST 10 MG TAB PO SCH (08:47)
[2018-09-10] MEDS: PANTOPRAZOLE 40 MG TABLET PO SCH (08:47)
[2018-09-10] MEDS: POTASSIUM CHLORIDE ER 10 MEQ TAB.ER.PRT PO SCH (08:47)
[2018-09-10] MEDS: AMIODARONE 200 MG TAB PO SCH (08:47)
[2018-09-10] MEDS: LISINOPRIL 5 MG TAB PO SCH (08:47)
[2018-09-10] MEDS: APIXABAN 5 MG TAB PO SCH ×2 (08:47→21:23)
[2018-09-10] MEDS: INSULIN DETEMIR (LEVEMIR) 100 UNIT/ML SYR SQ SCH (08:48)
[2018-09-10] MEDS: OSELTAMIVIR 75 MG CAP PO SCH ×2 (08:48→21:23)
[2018-09-10] MEDS: busPIRone HCl 5 MG TAB PO SCH ×2 (08:50→21:22)
[2018-09-10] MEDS: ARTIFICIAL TEARS-HYPROMELLOSE DROPS 15 ML BTL BOTH EYES SCH ×2 (08:54→21:23)
[2018-09-10] MEDS ORDERED: FUROSEMIDE 20 MG TAB PO SCH (09:00)
[2018-09-10 12:00] LABS: Glucose,Whole Blood 277 mg/dL (75-99)
--- NOTE | 2018-09-10 15:57 | P.PN ---
Subjective Progress Note Date: 09/10/18 Principal diagnosis: Acute influenza a infection, tracheobronchitis, acute hypoxic respiratory failure This is a 68-year-old female patient who is deaf and the patient is coming into the MRSA problem because of fever and cough congestion shortness of breath and chest pain. The patient was feeling slightly dizziness. He denied having any nausea vomiting diarrhea or abdominal pain. He was complaining of diffuse body aches. In the ED, patient was found to be febrile with a temperature 1.5. Pulse ox was 90% on room air and was dropping as low as 89%. Influenza screen was positive for influenza A. The patient was started on Tamiflu. Chest x-ray showed no acute abnormalities. EKG showed normal sinus rhythm. The patient was placed on oxygen and it was titrated up to 4 L of oxygen nasal cannula. The patient was admitted to the medical floor and a pulmonary consultation was requested This patient is known to have coronary artery disease with previous coronary stenting. The patient is also diabetic has approximately atrial fibrillation and has hypertension and hyperlipidemia On 09/10/2018 patient seen in follow-up on medical surgical floor. He is sitting up in the chair, in no acute distress, he is improving, no fever or chills. In 4 L per nasal cannula his pulse ox is 96%, he is afebrile, urine and blood cultures have been negative, patient is on Tamiflu for the influenza A infection. Lung sounds are positive for some scattered wheezes, but overall less bronchospastic compared to yesterday's exam, he is improving, will continue with current medical treatment. Objective - Vital Signs Vital signs: Vital Signs Temp 97.9 F 09/10/18 07:30 Pulse 80 09/10/18 08:40 Resp 18 09/10/18 07:30 BP 137/66 09/10/18 07:30 Pulse Ox 96 09/10/18 07:30 Intake & Output 09/09/18 09/10/18 09/10/18 18:59 06:59 18:59 Intake Total 222 240 Balance 222 240 Weight 113.398 kg Intake: Oral 222 240 Other: # Voids 3 - Exam GENERAL EXAM: Alert, pleasant, 68-year-old white male comfortable in no apparent distress. HEAD: Normocephalic/atraumatic. EYES: Normal reaction of pupils, equal size. Conjunctiva pink, sclera white. NOSE: Clear with pink turbinates. THROAT: No erythema or exudates. NECK: No masses, no JVD, no thyroid enlargement, no adenopathy. CHEST: No chest wall deformity. Symmetrical expansion. LUNGS: Equal air entry with scattered wheezes and a few rhonchi CVS: Regular rate and rhythm, normal S1 and S2, no gallops, no murmurs, no rubs ABDOMEN: Soft, nontender. No hepatosplenomegaly, normal bowel sounds, no guarding or rigidity. EXTREMITIES: No clubbing, no edema, no cyanosis, 2+ pulses and upper and lower extremities. MUSCULOSKELETAL: Muscle strength and tone normal. SPINE: No scoliosis or deformity SKIN: No rashes CENTRAL NERVOUS SYSTEM: Alert and oriented -3. No focal deficits, tone is normal in all 4 extremities. PSYCHIATRIC: Alert and oriented -3. Appropriate affect. Intact judgment and insight. - Labs CBC & Chem 7: 09/09/18 10:55 09/09/18 10:55 Labs: Abnormal Lab Results - Last 24 Hours (Table) 09/09/18 09/09/18 09/09/18 Range/Units 16:05 17:00 20:58 POC Glucose (mg/dL) 345 H 325 H (75-99) mg/dL Urine Protein Trace H (Negative) Urine Glucose (UA) 3+ H (Negative) 09/10/18 Range/Units 11:49 POC Glucose (mg/dL) 277 H (75-99) mg/dL Urine Protein (Negative) Urine Glucose (UA) (Negative) Microbiology - Last 24 Hours (Table) 09/09/18 10:55 Blood Culture - Preliminary Blood No Growth after 24 hours 09/09/18 16:05 Urine Culture - Preliminary Urine,Clean Catch Assessment and Plan Plan: Assessment: 1 acute influenza A syndrome with pulmonary symptoms of tracheobronchitis most likely secondary viral infection. 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 The patient is also on amiodarone 11 hypothyroidism maintained on thyroid hormone replacement Plan: Continue Tamiflu, continue Ceftin, nebulized bronchodilators, and IV steroids, patient is breathing easier, less bronchospastic and congested on today's exam. No fever, no chills, cultures are negative thus far. Medications have been resumed, oral anticoagulation. No complaints of worsening dyspnea, chest pain. Patient is improving, will continue current medical treatment will continue to follow I performed a history & physical examination of the patient and discussed their management with my nurse practitioner, Sabrina Burgos. I reviewed the nurse practitioner's note and agree with the documented findings and plan of care. Lung sounds are positive for diffuse wheezes throughout the lung blake. The findings and the impression was discussed with the patient. I attest to the documentation by the nurse practitioner. Time with Patient: Less than 30
[2018-09-10 17:04] LABS: Glucose,Whole Blood 238 mg/dL (75-99)
[2018-09-10 20:10] LABS: Glucose,Whole Blood 209 mg/dL (75-99)
[2018-09-11] MEDS: IPRATROPIUM-ALBUTEROL 3 ML NEB INHALATION SCH ×6 (01:01→21:05)
--- NOTE | 2018-09-11 01:54 | P.PN ---
Subjective Progress Note Date: 09/10/18 Principal diagnosis: Acute influenza infection This is a 68-year-old female patient who is deaf and the patient is coming into the MRSA problem because of fever and cough congestion shortness of breath and chest pain. The patient was feeling slightly dizziness. He denied having any nausea vomiting diarrhea or abdominal pain. He was complaining of diffuse body aches. In the ED, patient was found to be febrile with a temperature 1.5. Pulse ox was 90% on room air and was dropping as low as 89%. Influenza screen was positive for influenza A. The patient was started on Tamiflu. Chest x-ray showed no acute abnormalities. EKG showed normal sinus rhythm. The patient was placed on oxygen and it was titrated up to 4 L of oxygen nasal cannula. The patient was admitted to the medical floor and a pulmonary consultation was requested This patient is known to have coronary artery disease with previous coronary stenting. The patient is also diabetic has approximately atrial fibrillation and has hypertension and hyperlipidemia. 09/10/2018 patient seen in follow-up on medical surgical floor. He is sitting up in the chair, in no acute distress, he is improving, no fever or chills. In 4 L per nasal cannula his pulse ox is 96%, he is afebrile, urine and blood cultures have been negative, patient is on Tamiflu for the influenza A infection. Lung sounds are positive for some scattered wheezes, but overall less bronchospastic compared to yesterday's exam, he is improving, will continue with current medical treatment. Objective - Vital Signs Vital signs: Vital Signs Temp 97.9 F 09/10/18 07:30 Pulse 80 09/10/18 08:40 Resp 18 09/10/18 07:30 BP 137/66 09/10/18 07:30 Pulse Ox 96 09/10/18 07:30 Intake & Output 09/09/18 09/10/18 09/10/18 18:59 06:59 18:59 Intake Total 222 240 Balance 222 240 Weight 113.398 kg Intake: Oral 222 240 Other: # Voids 3 - Exam Patient is lying in the bed comfortably, no acute distress, awake alert and oriented.. HEENT: Normocephalic. Neck is supple. Pupils reactive. Nostrils clear. Oral cavity is moist. Ears reveal no drainage. Neck reveals no JVD, carotid bruits, or thyromegaly. CHEST EXAMINATION: Trachea is central. Symmetrical expansion. Bibasilar diffuse rhonchi. No wheezing. Nonlabored breathing.. CARDIAC: Normal S1, S2 with no gallops. No murmurs ABDOMEN: Soft. Bowel sounds normal. No organomegaly. No abdominal bruits. Extremities: reveal no edema. No clubbing or cyanosis Neurologically awake, alert, oriented x3 with well-coordinated movements. Hearing disorder and difficulty in speech. No focal deficits noted Skin: No rash or skin lesions. Psychiatric: Coperative. Could not be assessed completely. Musculoskeletal: No joint swelling or deformity. Normal range of motion. - Labs CBC & Chem 7: 09/09/18 10:55 09/09/18 10:55 Labs: Abnormal Lab Results - Last 24 Hours (Table) 09/09/18 09/09/18 09/09/18 Range/Units 16:05 17:00 20:58 POC Glucose (mg/dL) 345 H 325 H (75-99) mg/dL Urine Protein Trace H (Negative) Urine Glucose (UA) 3+ H (Negative) 09/10/18 Range/Units 11:49 POC Glucose (mg/dL) 277 H (75-99) mg/dL Urine Protein (Negative) Urine Glucose (UA) (Negative) Microbiology - Last 24 Hours (Table) 09/09/18 16:05 Urine Culture - Preliminary Urine,Clean Catch Assessment and Plan Assessment: Acute influenza A infection. Possible viral pneumonia. Acute hypoxic respiratory failure requiring oxygen on admission Hyperglycemia with uncontrolled diabetes type 2 due to steroids Coronary artery disease and history of stent placement Paroxysmal atrial fibrillation on anticoagulations with Eliquis Obstructive sleep apnea. Currently not using CPAP Hypertension Diabetes type 2 insulin-dependent Hyperlipidemia Hypothyroidism Morbid obesity with BMI 36.9 Patient recently continued on IV hydration and Tamiflu. Continue with duo nebs and IV methylprednisolone. Continue with oxygen therapy. Continue with insulin regimen at home with Levemir 28 units daily along with insulin siding scale and NovoLog 10 units 3 times a day before meals. Continue with home cardiac medications including anticoagulation with Eliquis and other medications. follow closely. Pulmonary is following. Further recommendations based on the clinical course. Time with Patient: Greater than 30
[2018-09-11] MEDS: methylPREDNISolone SOD SUCCI 125 MG/2 ML VIAL IV SCH (05:45)
[2018-09-11] MEDS: LEVOTHYROXINE 112 MCG TAB PO SCH (05:45)
[2018-09-11 07:22] LABS: Glucose,Whole Blood 207 mg/dL (75-99)
[2018-09-11] MEDS: ARTIFICIAL TEARS-HYPROMELLOSE DROPS 15 ML BTL BOTH EYES SCH ×2 (07:49→21:19)
[2018-09-11] MEDS: GABAPENTIN 400 MG CAP PO SCH ×3 (07:49→21:19)
[2018-09-11] MEDS: LISINOPRIL 5 MG TAB PO SCH (07:49)
[2018-09-11] MEDS: ASPIRIN 81 MG PO SCH (07:50)
[2018-09-11] MEDS: POTASSIUM CHLORIDE ER 10 MEQ TAB.ER.PRT PO SCH (07:50)
[2018-09-11] MEDS: BACLOFEN 10 MG TAB PO SCH ×3 (07:50→21:19)
[2018-09-11] MEDS: AMIODARONE 200 MG TAB PO SCH (07:50)
[2018-09-11] MEDS: OSELTAMIVIR 75 MG CAP PO SCH ×2 (07:50→21:19)
[2018-09-11] MEDS: CARVEDILOL 12.5 MG TAB PO SCH ×2 (07:50→17:27)
[2018-09-11] MEDS: FERROUS SULFATE 325 MG TAB PO SCH ×2 (07:50→21:19)
[2018-09-11] MEDS: busPIRone HCl 5 MG TAB PO SCH ×2 (07:50→21:19)
[2018-09-11] MEDS: metFORMIN 500 MG TAB PO SCH ×2 (07:51→21:19)
[2018-09-11] MEDS: MONTELUKAST 10 MG TAB PO SCH (07:51)
[2018-09-11] MEDS: INSULIN ASPART (NovoLOG) 100 UNIT/ML VIAL SQ SCH ×7 (07:51→21:20)
[2018-09-11] MEDS: INSULIN DETEMIR (LEVEMIR) 100 UNIT/ML SYR SQ SCH (07:51)
[2018-09-11] MEDS: PANTOPRAZOLE 40 MG TABLET PO SCH (07:51)
[2018-09-11] MEDS: ATORVASTATIN 10 MG TAB PO SCH (07:51)
[2018-09-11] MEDS: APIXABAN 5 MG TAB PO SCH ×2 (07:51→21:19)
--- NOTE | 2018-09-11 11:52 | P.PN ---
Subjective Progress Note Date: 09/11/18 Principal diagnosis: Acute influenza a infection, tracheobronchitis, acute hypoxic respiratory failure This is a 68-year-old female patient who is deaf and the patient is coming into the MRSA problem because of fever and cough congestion shortness of breath and chest pain. The patient was feeling slightly dizziness. He denied having any nausea vomiting diarrhea or abdominal pain. He was complaining of diffuse body aches. In the ED, patient was found to be febrile with a temperature 1.5. Pulse ox was 90% on room air and was dropping as low as 89%. Influenza screen was positive for influenza A. The patient was started on Tamiflu. Chest x-ray showed no acute abnormalities. EKG showed normal sinus rhythm. The patient was placed on oxygen and it was titrated up to 4 L of oxygen nasal cannula. The patient was admitted to the medical floor and a pulmonary consultation was requested This patient is known to have coronary artery disease with previous coronary stenting. The patient is also diabetic has approximately atrial fibrillation and has hypertension and hyperlipidemia On 09/10/2018 patient seen in follow-up on medical surgical floor. He is sitting up in the chair, in no acute distress, he is improving, no fever or chills. In 4 L per nasal cannula his pulse ox is 96%, he is afebrile, urine and blood cultures have been negative, patient is on Tamiflu for the influenza A infection. Lung sounds are positive for some scattered wheezes, but overall less bronchospastic compared to yesterday's exam, he is improving, will continue with current medical treatment. On 2018 patient seen in follow-up on medical surgical floor. He is in no acute distress, he is relating in the room, going to the bathroom, no acute distress, overall he sounds better on today's exam, and he states his breathing is improving, although she still has episodes of coughing, and apparently last night he did have a brought up a small amount of blood-tinged sputum, no recurrence of hemoptysis today. Lung sounds as a for some scattered rhonchi, minimal wheezes. Overall much improved compared to yesterday, [place] of 92% on 2 L per nasal cannula, no fever or chills in the last 48 hours. Blood culture and urine remained negative. Patient is on Tamiflu, nebulized bronchodilators and IV steroids, he is improving. Objective - Vital Signs Vital signs: Vital Signs Temp 98.2 F 09/11/18 07:00 Pulse 56 L 09/11/18 11:26 Resp 16 09/11/18 07:51 BP 151/69 09/11/18 07:00 Pulse Ox 92 L 09/11/18 07:00 Intake & Output 09/10/18 09/11/18 09/11/18 18:59 06:59 18:59 Intake Total 1055 780 Balance 1055 780 Intake: Intake, IV Titration 575 Amount Sodium Chloride 0.9% 1, 575 000 ml @ 75 mls/hr IV . [id number] ONE Rx#:[id number] Oral 480 780 Other: # Voids 1 2 - Exam GENERAL EXAM: Alert, pleasant, 68-year-old white male comfortable in no apparent distress. HEAD: Normocephalic/atraumatic. EYES: Normal reaction of pupils, equal size. Conjunctiva pink, sclera white. NOSE: Clear with pink turbinates. THROAT: No erythema or exudates. NECK: No masses, no JVD, no thyroid enlargement, no adenopathy. CHEST: No chest wall deformity. Symmetrical expansion. LUNGS: Equal air entry with minimal wheezes and a few rhonchi CVS: Regular rate and rhythm, normal S1 and S2, no gallops, no murmurs, no rubs ABDOMEN: Soft, nontender. No hepatosplenomegaly, normal bowel sounds, no guarding or rigidity. EXTREMITIES: No clubbing, no edema, no cyanosis, 2+ pulses and upper and lower extremities. MUSCULOSKELETAL: Muscle strength and tone normal. SPINE: No scoliosis or deformity SKIN: No rashes CENTRAL NERVOUS SYSTEM: Alert and oriented -3. No focal deficits, tone is normal in all 4 extremities. PSYCHIATRIC: Alert and oriented -3. Appropriate affect. Intact judgment and insight. - Labs CBC & Chem 7: 09/09/18 10:55 09/09/18 10:55 Labs: Abnormal Lab Results - Last 24 Hours (Table) 09/10/18 09/10/18 09/10/18 Range/Units 11:49 17:03 20:06 POC Glucose (mg/dL) 277 H 238 H 209 H (75-99) mg/dL 09/11/18 Range/Units 07:20 POC Glucose (mg/dL) 207 H (75-99) mg/dL Microbiology - Last 24 Hours (Table) 09/09/18 16:05 Urine Culture - Final Urine,Clean Catch 09/09/18 10:55 Blood Culture - Preliminary Blood No Growth after 24 hours Assessment and Plan Plan: Assessment: 1 acute influenza A syndrome with pulmonary symptoms of tracheobronchitis most likely secondary viral infection. 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 The patient is also on amiodarone 11 hypothyroidism maintained on thyroid hormone replacement Plan: Continue current medical treatment, will decrease IV steroids down to 40 mg every 8 hours. Continue to follow nebulized bronchodilators. Patient is improving, patient's progressive spastic and congested on today's exam, he is able to tolerate ambulation. Did have some limited hemoptysis yesterday, no recurrence today, hemodynamically stable, vital signs stable. Afebrile. From pulmonary perspective patient probably could be considered for discharge home in next 24 hours provided he continues to improve. Wean FiO2. I performed a history & physical examination of the patient and discussed their management with my nurse practitioner, Sabrina Burgos. I reviewed the nurse practitioner's note and agree with the documented findings and plan of care. Lung sounds are positive for limited wheezes and rhonchi. The findings and the impression was discussed with the patient. I attest to the documentation by the nurse practitioner. Time with Patient: Less than 30
[2018-09-11 12:02] LABS: Glucose,Whole Blood 161 mg/dL (75-99)
--- NOTE | 2018-09-11 16:57 | P.PN ---
Subjective 68-year-old female patient who is deaf and the patient is coming into the MRSA problem because of fever and cough congestion shortness of breath and chest pain. The patient was feeling slightly dizziness. He denied having any nausea vomiting diarrhea or abdominal pain. He was complaining of diffuse body aches. In the ED, patient was found to be febrile with a temperature 1.5. Pulse ox was 90% on room air and was dropping as low as 89%. Influenza screen was positive for influenza A. The patient was started on Tamiflu. Chest x-ray showed no acute abnormalities. EKG showed normal sinus rhythm. The patient was placed on oxygen and it was titrated up to 4 L of oxygen nasal cannula. The patient was admitted to the medical floor and a pulmonary consultation was requested This patient is known to have coronary artery disease with previous coronary stenting. The patient is also diabetic has approximately atrial fibrillation and has hypertension and hyperlipidemia. 09/10/2018 patient seen in follow-up on medical surgical floor. He is sitting up in the chair, in no acute distress, he is improving, no fever or chills. In 4 L per nasal cannula his pulse ox is 96%, he is afebrile, urine and blood cultures have been negative, patient is on Tamiflu for the influenza A infection. Lung sounds are positive for some scattered wheezes, but overall less bronchospastic compared to yesterday's exam, he is improving, will continue with current medical treatment. 09/11/2018 Patient the respiratory status improved significantly, patient is on 2 L of Cardizem normally uses 2 L of oxygen at home. Patient quit smoking years ago patient doesn't have any wheeze at this time. Possibly of discharge tomorrow Constitutional: Denied any fatigue denied any fever. Cardio vascular: denied any chest pain, palpitations Gastrointestinal denied any nausea vomiting Pulmonary:as mentioned in HPI Neurologic denied any new focal deficits All inpatient medications were reviewed and appropriate changes in these medications as dictated in the interval history and assessment and plan. Objective - Vital Signs Vital signs: Vital Signs Temp 98.3 F 09/11/18 15:00 Pulse 62 09/11/18 16:52 Resp 16 09/11/18 15:56 BP 135/71 09/11/18 15:00 Pulse Ox 95 09/11/18 16:53 Intake & Output 09/10/18 09/11/18 09/11/18 18:59 06:59 18:59 Intake Total 1055 1076 Balance 1055 1076 Intake: Intake, IV Titration 575 Amount Sodium Chloride 0.9% 1, 575 000 ml @ 75 mls/hr IV . [id number] ONE Rx#:[id number] Oral 480 1076 Other: # Voids 1 2 4 - Exam PHYSICAL EXAMINATION: GENERAL: The patient is alert and oriented x3, not in any acute distress. obese HEENT: Pupils are round and equally reacting to light. EOMI. No scleral icterus. No conjunctival pallor. Normocephalic, atraumatic. No pharyngeal erythema. No thyromegaly. CARDIOVASCULAR: S1 and S2 present. No murmurs, rubs, or gallops. PULMONARY: Chest is clear to auscultation, no wheezing or crackles. ABDOMEN: Soft, nontender, nondistended, normoactive bowel sounds. No palpable organomegaly. MUSCULOSKELETAL: No joint swelling or deformity. EXTREMITIES: No cyanosis, clubbing, or pedal edema. NEUROLOGICAL: Gross neurological examination did not reveal any focal deficits. SKIN: No rashes. - Labs CBC & Chem 7: 09/09/18 10:55 09/09/18 10:55 Labs: Abnormal Lab Results - Last 24 Hours (Table) 09/10/18 09/10/18 09/11/18 Range/Units 17:03 20:06 07:20 POC Glucose (mg/dL) 238 H 209 H 207 H (75-99) mg/dL 09/11/18 Range/Units 11:51 POC Glucose (mg/dL) 161 H (75-99) mg/dL Microbiology - Last 24 Hours (Table) 09/09/18 10:55 Blood Culture - Preliminary Blood No Growth after 48 hours 09/09/18 16:05 Urine Culture - Final Urine,Clean Catch Assessment and Plan Plan: -acute influenza A infection and the possibility of viral pneumonia continue with the present medications antibiotics -Acute hypoxic as well as hypercapnic respiratory failure from influenza pneumonia and COPD with acute exacerbation -Obstructive sleep apnea -Coronary artery disease with stent placement -Proximal A. fib on anti-correlation with Eliquis which is being continued -Hypertension -Type 2 diabetes mellitus insulin-dependent fairly controlled blood sugars, continue with present regimen -Morbid obesity -Hyperlipidemia -Hypothyroidism
[2018-09-11 17:18] LABS: Glucose,Whole Blood 222 mg/dL (75-99)
[2018-09-11] MEDS: methylPREDNISolone SOD SUCCI 40 MG/ML 1 ML VIAL IV SCH ×2 (17:27→23:41)
[2018-09-11 21:16] LABS: Glucose,Whole Blood 252 mg/dL (75-99)
[2018-09-12] MEDS: IPRATROPIUM-ALBUTEROL 3 ML NEB INHALATION SCH ×7 (00:24→23:48)
[2018-09-12] MEDS: LEVOTHYROXINE 112 MCG TAB PO SCH (05:43)
[2018-09-12 07:19] LABS: Glucose,Whole Blood 240 mg/dL (75-99)
[2018-09-12] MEDS: MONTELUKAST 10 MG TAB PO SCH (08:06)
[2018-09-12] MEDS: PANTOPRAZOLE 40 MG TABLET PO SCH (08:06)
[2018-09-12] MEDS: FERROUS SULFATE 325 MG TAB PO SCH ×2 (08:06→21:35)
[2018-09-12] MEDS: methylPREDNISolone SOD SUCCI 40 MG/ML 1 ML VIAL IV SCH ×2 (08:06→15:51)
[2018-09-12] MEDS: ARTIFICIAL TEARS-HYPROMELLOSE DROPS 15 ML BTL BOTH EYES SCH ×2 (08:06→21:35)
[2018-09-12] MEDS: CARVEDILOL 12.5 MG TAB PO SCH ×2 (08:07→17:37)
[2018-09-12] MEDS: OSELTAMIVIR 75 MG CAP PO SCH ×2 (08:07→21:35)
[2018-09-12] MEDS: metFORMIN 500 MG TAB PO SCH ×2 (08:07→21:35)
[2018-09-12] MEDS: APIXABAN 5 MG TAB PO SCH ×2 (08:07→21:35)
[2018-09-12] MEDS: GABAPENTIN 400 MG CAP PO SCH ×3 (08:07→21:35)
[2018-09-12] MEDS: POTASSIUM CHLORIDE ER 10 MEQ TAB.ER.PRT PO SCH (08:07)
[2018-09-12] MEDS: busPIRone HCl 5 MG TAB PO SCH ×2 (08:07→21:35)
[2018-09-12] MEDS: ATORVASTATIN 10 MG TAB PO SCH (08:07)
[2018-09-12] MEDS: AMIODARONE 200 MG TAB PO SCH (08:07)
[2018-09-12] MEDS: ASPIRIN 81 MG PO SCH (08:07)
[2018-09-12] MEDS: LISINOPRIL 5 MG TAB PO SCH (08:07)
[2018-09-12] MEDS: INSULIN DETEMIR (LEVEMIR) 100 UNIT/ML SYR SQ SCH (08:08)
[2018-09-12] MEDS: INSULIN ASPART (NovoLOG) 100 UNIT/ML VIAL SQ SCH ×7 (08:08→17:38)
[2018-09-12] MEDS: BACLOFEN 10 MG TAB PO SCH ×3 (08:09→21:35)
[2018-09-12 11:29] LABS: Glucose,Whole Blood 302 mg/dL (75-99)
--- NOTE | 2018-09-12 15:15 | P.PN ---
Subjective 68-year-old female patient who is deaf and the patient is coming into the MRSA problem because of fever and cough congestion shortness of breath and chest pain. The patient was feeling slightly dizziness. He denied having any nausea vomiting diarrhea or abdominal pain. He was complaining of diffuse body aches. In the ED, patient was found to be febrile with a temperature 1.5. Pulse ox was 90% on room air and was dropping as low as 89%. Influenza screen was positive for influenza A. The patient was started on Tamiflu. Chest x-ray showed no acute abnormalities. EKG showed normal sinus rhythm. The patient was placed on oxygen and it was titrated up to 4 L of oxygen nasal cannula. The patient was admitted to the medical floor and a pulmonary consultation was requested This patient is known to have coronary artery disease with previous coronary stenting. The patient is also diabetic has approximately atrial fibrillation and has hypertension and hyperlipidemia. 09/10/2018 patient seen in follow-up on medical surgical floor. He is sitting up in the chair, in no acute distress, he is improving, no fever or chills. In 4 L per nasal cannula his pulse ox is 96%, he is afebrile, urine and blood cultures have been negative, patient is on Tamiflu for the influenza A infection. Lung sounds are positive for some scattered wheezes, but overall less bronchospastic compared to yesterday's exam, he is improving, will continue with current medical treatment. 09/11/2018 Patient the respiratory status improved significantly, patient is on 2 L of Cardizem normally uses 2 L of oxygen at home. Patient quit smoking years ago patient doesn't have any wheeze at this time. Possibly of discharge tomorrow 09/12/2018 Patient does have some rhonchorous breath sounds wheezing improved. Constitutional: Denied any fatigue denied any fever. Cardio vascular: denied any chest pain, palpitations Gastrointestinal denied any nausea vomiting Pulmonary:as mentioned in HPI Neurologic denied any new focal deficits All inpatient medications were reviewed and appropriate changes in these medications as dictated in the interval history and assessment and plan. Objective - Vital Signs Vital signs: Vital Signs Temp 98.2 F 09/12/18 14:41 Pulse 56 L 09/12/18 14:41 Resp 18 09/12/18 08:00 BP 171/74 09/12/18 14:41 Pulse Ox 96 09/12/18 14:41 Intake & Output 09/11/18 09/12/18 09/12/18 18:59 06:59 18:59 Intake Total 360 780 Balance 360 780 Intake: Oral 360 780 Other: # Voids 4 2 - Exam PHYSICAL EXAMINATION: GENERAL: The patient is alert and oriented x3, not in any acute distress. obese HEENT: Pupils are round and equally reacting to light. EOMI. No scleral icterus. No conjunctival pallor. Normocephalic, atraumatic. No pharyngeal erythema. No thyromegaly. CARDIOVASCULAR: S1 and S2 present. No murmurs, rubs, or gallops. PULMONARY: Patient has rhonchorous breath sounds no significant wheezing was appreciated today ABDOMEN: Soft, nontender, nondistended, normoactive bowel sounds. No palpable organomegaly. MUSCULOSKELETAL: No joint swelling or deformity. EXTREMITIES: No cyanosis, clubbing, or pedal edema. NEUROLOGICAL: Gross neurological examination did not reveal any focal deficits. SKIN: No rashes. - Labs CBC & Chem 7: 09/09/18 10:55 09/09/18 10:55 Labs: Abnormal Lab Results - Last 24 Hours (Table) 09/11/18 09/11/18 09/12/18 Range/Units 17:16 21:15 07:17 POC Glucose (mg/dL) 222 H 252 H 240 H (75-99) mg/dL 09/12/18 Range/Units 11:26 POC Glucose (mg/dL) 302 H (75-99) mg/dL Microbiology - Last 24 Hours (Table) 09/09/18 10:55 Blood Culture - Preliminary Blood No Growth after 72 hours Assessment and Plan Plan: -acute influenza A infection and the possibility of viral pneumonia continue with the present medications antibiotics, pulmonology is recommending one more day of hospitalization -Acute hypoxic as well as hypercapnic respiratory failure from influenza pneumonia and COPD with acute exacerbation -Obstructive sleep apnea -Coronary artery disease with stent placement -Proximal A. fib on anti-coagulation with Eliquis which is being continued -Hypertension -Type 2 diabetes mellitus insulin-dependent fairly controlled blood sugars, continue with present regimen -Morbid obesity -Hyperlipidemia -Hypothyroidism
--- NOTE | 2018-09-12 15:56 | P.PN ---
Subjective Progress Note Date: 09/12/18 Principal diagnosis: Acute influenza a infection, tracheobronchitis, acute hypoxic respiratory failure This is a 68-year-old female patient who is deaf and the patient is coming into the MRSA problem because of fever and cough congestion shortness of breath and chest pain. The patient was feeling slightly dizziness. He denied having any nausea vomiting diarrhea or abdominal pain. He was complaining of diffuse body aches. In the ED, patient was found to be febrile with a temperature 1.5. Pulse ox was 90% on room air and was dropping as low as 89%. Influenza screen was positive for influenza A. The patient was started on Tamiflu. Chest x-ray showed no acute abnormalities. EKG showed normal sinus rhythm. The patient was placed on oxygen and it was titrated up to 4 L of oxygen nasal cannula. The patient was admitted to the medical floor and a pulmonary consultation was requested This patient is known to have coronary artery disease with previous coronary stenting. The patient is also diabetic has approximately atrial fibrillation and has hypertension and hyperlipidemia On 09/10/2018 patient seen in follow-up on medical surgical floor. He is sitting up in the chair, in no acute distress, he is improving, no fever or chills. In 4 L per nasal cannula his pulse ox is 96%, he is afebrile, urine and blood cultures have been negative, patient is on Tamiflu for the influenza A infection. Lung sounds are positive for some scattered wheezes, but overall less bronchospastic compared to yesterday's exam, he is improving, will continue with current medical treatment. On 2018 patient seen in follow-up on medical surgical floor. He is in no acute distress, he is relating in the room, going to the bathroom, no acute distress, overall he sounds better on today's exam, and he states his breathing is improving, although she still has episodes of coughing, and apparently last night he did have a brought up a small amount of blood-tinged sputum, no recurrence of hemoptysis today. Lung sounds as a for some scattered rhonchi, minimal wheezes. Overall much improved compared to yesterday, [place] of 92% on 2 L per nasal cannula, no fever or chills in the last 48 hours. Blood culture and urine remained negative. Patient is on Tamiflu, nebulized bronchodilators and IV steroids, he is improving. On 09/12/2018 patient seen in follow-up on medical surgical floor. Sounds a bit more congested on today's exam, still bringing up some sputum, and does have exertional dyspnea. He is on supplemental oxygen, currently at 2 L per nasal cannula with pulse ox is 94%, afebrile, hemodynamically stable, lung sounds reveal scattered rhonchi, and some wheezes, we'll repeat chest x-ray today, continue with IV steroids, patient is completing a course of Tamiflu Objective - Vital Signs Vital signs: Vital Signs Temp 98.2 F 09/12/18 14:41 Pulse 56 L 09/12/18 14:41 Resp 18 09/12/18 08:00 BP 171/74 09/12/18 14:41 Pulse Ox 96 09/12/18 14:41 Intake & Output 09/11/18 09/12/18 09/12/18 18:59 06:59 18:59 Intake Total 360 780 Balance 360 780 Intake: Oral 360 780 Other: # Voids 4 2 4 - Exam GENERAL EXAM: Alert, pleasant, 68-year-old white male comfortable in no apparent distress. HEAD: Normocephalic/atraumatic. EYES: Normal reaction of pupils, equal size. Conjunctiva pink, sclera white. NOSE: Clear with pink turbinates. THROAT: No erythema or exudates. NECK: No masses, no JVD, no thyroid enlargement, no adenopathy. CHEST: No chest wall deformity. Symmetrical expansion. LUNGS: Equal air entry with scattered rhonchi, CVS: Regular rate and rhythm, normal S1 and S2, no gallops, no murmurs, no rubs ABDOMEN: Soft, nontender. No hepatosplenomegaly, normal bowel sounds, no guarding or rigidity. EXTREMITIES: No clubbing, no edema, no cyanosis, 2+ pulses and upper and lower extremities. MUSCULOSKELETAL: Muscle strength and tone normal. SPINE: No scoliosis or deformity SKIN: No rashes CENTRAL NERVOUS SYSTEM: Alert and oriented -3. No focal deficits, tone is normal in all 4 extremities. PSYCHIATRIC: Alert and oriented -3. Appropriate affect. Intact judgment and insight. - Labs CBC & Chem 7: 09/09/18 10:55 09/09/18 10:55 Labs: Abnormal Lab Results - Last 24 Hours (Table) 09/11/18 09/11/18 09/12/18 Range/Units 17:16 21:15 07:17 POC Glucose (mg/dL) 222 H 252 H 240 H (75-99) mg/dL 09/12/18 Range/Units 11:26 POC Glucose (mg/dL) 302 H (75-99) mg/dL Microbiology - Last 24 Hours (Table) 09/09/18 10:55 Blood Culture - Preliminary Blood No Growth after 72 hours Assessment and Plan Plan: Assessment: 1 acute influenza A syndrome with pulmonary symptoms of tracheobronchitis most likely secondary viral infection. 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 The patient is also on amiodarone 11 hypothyroidism maintained on thyroid hormone replacement Plan: We will continue current medical treatment, IV steroids, nebulized bronchodilators, and in the course of Tamiflu, and we'll repeat a chest x-ray today, sounds a bit more congested on today's exam. I performed a history & physical examination of the patient and discussed their management with my nurse practitioner, Sabrina Burgos. I reviewed the nurse practitioner's note and agree with the documented findings and plan of care. Lung sounds are positive for limited wheezes and rhonchi. The findings and the impression was discussed with the patient. I attest to the documentation by the nurse practitioner. Time with Patient: Less than 30
[2018-09-12 17:35] LABS: Glucose,Whole Blood 208 mg/dL (75-99)
--- NOTE | 2018-09-12 18:20 | XR ---
EXAMINATION TYPE: XR chest 2V DATE OF EXAM: 09/12/2018 COMPARISON: 12/03/2015 HISTORY: Cough and congestion TECHNIQUE: Frontal and lateral views of the chest are obtained. FINDINGS: There is no heart failure nor confluent pneumonic infiltrate. Costophrenic angles are radha r. There are sternal wires. There are chest leads. Bony thorax is intact. IMPRESSION: No active cardiopulmonary disease. No adverse change.
[2018-09-12 20:19] VITALS: RESP 18
[2018-09-12 21:00] LABS: Glucose,Whole Blood 247 mg/dL (75-99)
[2018-09-12] MEDS ORDERED: INSULIN ASPART (NovoLOG) 100 UNIT/ML VIAL SQ ONE (21:07)
[2018-09-13] MEDS: methylPREDNISolone SOD SUCCI 40 MG/ML 1 ML VIAL IV SCH ×2 (00:46→07:39)
[2018-09-13] MEDS: IPRATROPIUM-ALBUTEROL 3 ML NEB INHALATION SCH ×3 (03:18→11:36)
[2018-09-13] MEDS: LEVOTHYROXINE 112 MCG TAB PO SCH (05:43)
[2018-09-13 07:32] LABS: Glucose,Whole Blood 219 mg/dL (75-99)
[2018-09-13] MEDS: CARVEDILOL 12.5 MG TAB PO SCH (07:39)
[2018-09-13] MEDS: PANTOPRAZOLE 40 MG TABLET PO SCH (07:39)
[2018-09-13] MEDS: INSULIN ASPART (NovoLOG) 100 UNIT/ML VIAL SQ SCH ×4 (07:40→12:40)
[2018-09-13 08:51] VITALS: BP 137/77; TEMP 97.6
[2018-09-13] MEDS: INSULIN DETEMIR (LEVEMIR) 100 UNIT/ML SYR SQ SCH (09:24)
[2018-09-13] MEDS: metFORMIN 500 MG TAB PO SCH (09:25)
[2018-09-13] MEDS: LISINOPRIL 5 MG TAB PO SCH (09:25)
[2018-09-13] MEDS: ASPIRIN 81 MG PO SCH (09:25)
[2018-09-13] MEDS: GABAPENTIN 400 MG CAP PO SCH (09:25)
[2018-09-13] MEDS: busPIRone HCl 5 MG TAB PO SCH (09:25)
[2018-09-13] MEDS: FERROUS SULFATE 325 MG TAB PO SCH (09:25)
[2018-09-13] MEDS: ATORVASTATIN 10 MG TAB PO SCH (09:25)
[2018-09-13] MEDS: OSELTAMIVIR 75 MG CAP PO SCH (09:25)
[2018-09-13] MEDS: POTASSIUM CHLORIDE ER 10 MEQ TAB.ER.PRT PO SCH (09:25)
[2018-09-13] MEDS: APIXABAN 5 MG TAB PO SCH (09:25)
[2018-09-13] MEDS: MONTELUKAST 10 MG TAB PO SCH (09:26)
[2018-09-13] MEDS: AMIODARONE 200 MG TAB PO SCH (09:26)
[2018-09-13] MEDS: BACLOFEN 10 MG TAB PO SCH (09:26)
[2018-09-13] MEDS: ARTIFICIAL TEARS-HYPROMELLOSE DROPS 15 ML BTL BOTH EYES SCH (09:29)
[2018-09-13 11:40] VITALS: PULSE 80
[2018-09-13 12:32] LABS: Glucose,Whole Blood 192 mg/dL (75-99)
--- NOTE | 2018-09-13 15:51 | P.PN ---
Subjective Progress Note Date: 09/13/18 Principal diagnosis: Acute influenza a infection, tracheobronchitis, acute hypoxic respiratory failure This is a 68-year-old female patient who is deaf and the patient is coming into the MRSA problem because of fever and cough congestion shortness of breath and chest pain. The patient was feeling slightly dizziness. He denied having any nausea vomiting diarrhea or abdominal pain. He was complaining of diffuse body aches. In the ED, patient was found to be febrile with a temperature 1.5. Pulse ox was 90% on room air and was dropping as low as 89%. Influenza screen was positive for influenza A. The patient was started on Tamiflu. Chest x-ray showed no acute abnormalities. EKG showed normal sinus rhythm. The patient was placed on oxygen and it was titrated up to 4 L of oxygen nasal cannula. The patient was admitted to the medical floor and a pulmonary consultation was requested This patient is known to have coronary artery disease with previous coronary stenting. The patient is also diabetic has approximately atrial fibrillation and has hypertension and hyperlipidemia On 09/10/2018 patient seen in follow-up on medical surgical floor. He is sitting up in the chair, in no acute distress, he is improving, no fever or chills. In 4 L per nasal cannula his pulse ox is 96%, he is afebrile, urine and blood cultures have been negative, patient is on Tamiflu for the influenza A infection. Lung sounds are positive for some scattered wheezes, but overall less bronchospastic compared to yesterday's exam, he is improving, will continue with current medical treatment. On 2018 patient seen in follow-up on medical surgical floor. He is in no acute distress, he is relating in the room, going to the bathroom, no acute distress, overall he sounds better on today's exam, and he states his breathing is improving, although she still has episodes of coughing, and apparently last night he did have a brought up a small amount of blood-tinged sputum, no recurrence of hemoptysis today. Lung sounds as a for some scattered rhonchi, minimal wheezes. Overall much improved compared to yesterday, [place] of 92% on 2 L per nasal cannula, no fever or chills in the last 48 hours. Blood culture and urine remained negative. Patient is on Tamiflu, nebulized bronchodilators and IV steroids, he is improving. On 09/12/2018 patient seen in follow-up on medical surgical floor. Sounds a bit more congested on today's exam, still bringing up some sputum, and does have exertional dyspnea. He is on supplemental oxygen, currently at 2 L per nasal cannula with pulse ox is 94%, afebrile, hemodynamically stable, lung sounds reveal scattered rhonchi, and some wheezes, we'll repeat chest x-ray today, continue with IV steroids, patient is completing a course of Tamiflu On 07/13/2019 patient seen in follow-up on the medical surgical floor. Breathing easier, less congested and wheezy, tolerating and ablation, remains on 2 L per nasal cannula. Patient does have home O2 that he wears on as-needed basis. Completing course of Tamiflu, nebulized bronchodilators, further hemoptysis. No fever or chills, from pulmonary perspective patient is stable for discharge home today. Objective - Vital Signs Vital signs: Vital Signs Temp 97.6 F 09/13/18 07:00 Pulse 80 09/13/18 11:50 Resp 18 09/13/18 08:46 BP 137/77 09/13/18 07:00 Pulse Ox 93 L 09/13/18 07:00 Intake & Output 09/12/18 09/13/18 09/13/18 18:59 06:59 18:59 Intake Total 540 440 Balance 540 440 Intake: Oral 540 440 Other: # Voids 4 1 1 - Exam GENERAL EXAM: Alert, pleasant, 68-year-old white male comfortable in no apparent distress. HEAD: Normocephalic/atraumatic. EYES: Normal reaction of pupils, equal size. Conjunctiva pink, sclera white. NOSE: Clear with pink turbinates. THROAT: No erythema or exudates. NECK: No masses, no JVD, no thyroid enlargement, no adenopathy. CHEST: No chest wall deformity. Symmetrical expansion. LUNGS: Equal air entry with scattered rhonchi CVS: Regular rate and rhythm, normal S1 and S2, no gallops, no murmurs, no rubs ABDOMEN: Soft, nontender. No hepatosplenomegaly, normal bowel sounds, no guarding or rigidity. EXTREMITIES: No clubbing, no edema, no cyanosis, 2+ pulses and upper and lower extremities. MUSCULOSKELETAL: Muscle strength and tone normal. SPINE: No scoliosis or deformity SKIN: No rashes CENTRAL NERVOUS SYSTEM: Alert and oriented -3. No focal deficits, tone is normal in all 4 extremities. PSYCHIATRIC: Alert and oriented -3. Appropriate affect. Intact judgment and insight. - Labs CBC & Chem 7: 09/09/18 10:55 09/09/18 10:55 Labs: Abnormal Lab Results - Last 24 Hours (Table) 09/12/18 09/12/18 09/13/18 Range/Units 17:33 20:59 07:25 POC Glucose (mg/dL) 208 H 247 H 219 H (75-99) mg/dL 09/13/18 Range/Units 12:29 POC Glucose (mg/dL) 192 H (75-99) mg/dL Microbiology - Last 24 Hours (Table) 09/09/18 10:55 Blood Culture - Preliminary Blood No Growth after 96 hours Assessment and Plan Plan: Assessment: 1 acute influenza A syndrome with pulmonary symptoms of tracheobronchitis most likely secondary viral infection. 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 The patient is also on amiodarone 11 hypothyroidism maintained on thyroid hormone replacement Plan: Patient is doing well, breathing easier, less congestive bronchospastic on today 's exam, no fever or chills, tolerating ambulation, completing a course of Tamiflu, from pulmonary perspective patient is stable for discharge home today. Follow up with Dr. Cardona in the office in 7-10 days. Patient has a nebulizer machine at home, we will send a script for Dujoryb. I performed a history & physical examination of the patient and discussed their management with my nurse practitioner, Sabrina Burgos. I reviewed the nurse practitioner's note and agree with the documented findings and plan of care. Lung sounds are positive for limited wheezes and rhonchi. The findings and the impression was discussed with the patient. I attest to the documentation by the nurse practitioner. Time with Patient: Less than 30
--- NOTE | 2018-09-13 17:13 | P.DS ---
Providers Date of admission: 09/09/18 13:21 Expected date of discharge: 09/13/18 Attending physician: Nick Kumar Consults: 09/09/18 13:21 Consult Physician Urgent Consulting Provider: Ana Paula Cardona Consult Reason/Comments: Hypoxia Do you want consulting provider notified?: Yes Primary care physician: Physician Nonstaff Hospital Course: Final Diagnoses: -acute influenza A infection and the possibility of viral pneumonia -Acute hypoxic,hypercapnic respiratory failure secondary to influenza pneumonia and COPD with acute exacerbation -Obstructive sleep apnea -Coronary artery disease with stent placement -Proximal A. fib on anti-coagulation with Eliquis -Hypertension -Type 2 diabetes mellitus insulin-dependent with peripheral neuropathy -Morbid obesity, BMI 36.9 -Hyperlipidemia -Hypothyroidism Hospital course:68-year-old female patient who is deaf and the patient is coming into the MRSA problem because of fever and cough congestion shortness of breath and chest pain. The patient was feeling slightly dizziness. He denied having any nausea vomiting diarrhea or abdominal pain. He was complaining of diffuse body aches. In the ED, patient was found to be febrile with a temperature 1.5. Pulse ox was 90% on room air and was dropping as low as 89%. Influenza screen was positive for influenza A. The patient was started on Tamiflu. Chest x-ray showed no acute abnormalities. EKG showed normal sinus rhythm. The patient was placed on oxygen and it was titrated up to 4 L of oxygen nasal cannula. The patient was admitted to the medical floor and a pulmonary consultation was requested This patient is known to have coronary artery disease with previous coronary stenting. The patient is also diabetic has approximately atrial fibrillation and has hypertension and hyperlipidemia. 09/10/2018 patient seen in follow-up on medical surgical floor. He is sitting up in the chair, in no acute distress, he is improving, no fever or chills. In 4 L per nasal cannula his pulse ox is 96%, he is afebrile, urine and blood cultures have been negative, patient is on Tamiflu for the influenza A infection. Lung sounds are positive for some scattered wheezes, but overall less bronchospastic compared to yesterday's exam, he is improving, will continue with current medical treatment. 09/11/2018 Patient the respiratory status improved significantly, patient is on 2 L of Cardizem normally uses 2 L of oxygen at home. Patient quit smoking years ago patient doesn't have any wheeze at this time. Possibly of discharge tomorrow 09/12/2018 Patient does have some rhonchorous breath sounds wheezing improved. 09/13/2018 maintained on nebulized bronchodilators, Tamiflu .no further hemoptysis .significant clinical improvement sitting up in chair, maintaining O2 sats of 90s on 2 L nasal cannula-Baseline. Cleared by pulmonary for discharge. Patient is being discharged to [facility], in a stable condition with guarded prognosis. EXAMINATION: GENERAL: The patient is alert and oriented x3, not in any acute distress. obese HEENT: Pupils are round and equally reacting to light. EOMI. No scleral icterus. No conjunctival pallor. Normocephalic, atraumatic. CARDIOVASCULAR: S1 and S2 present. No murmurs, rubs, or gallops. PULMONARY: Patient has rhonchorous breath sounds no wheezing ABDOMEN: Soft, nontender, nondistended, normoactive bowel sounds. No palpable organomegaly. NEUROLOGICAL: Gross neurological examination did not reveal any focal deficits. The impression and plan of care has been dictated as directed. : I performed a history and examination of this patient, discussed the same with the dictator. I agree with the dictator's note ,documented as a scribe. Any additional findings or plans will be noted. Time taken: 35 minutes Patient Condition at Discharge: Stable Plan - Discharge Summary Discharge Rx Participant: No New Discharge Prescriptions: New Albuterol Inhaler [Ventolin Hfa Inhaler] 1 - 2 puff INHALATION Q6HR PRN #1 inhaler PRN Reason: Shortness Of Breath Or Wheezing predniSONE 10 mg PO DAILY #30 tab metFORMIN HCL [Glucophage] 1,000 mg PO BID #60 tab Ipratropium-Albuterol Nebulize [Duoneb 0.5 mg-3 mg/3 ml Soln] 3 ml INHALATION QID 30 Days #5 box Continue Atorvastatin [Lipitor] 10 mg PO DAILY Nitroglycerin Sl Tabs [Nitrostat] 0.4 mg SUBLINGUAL Q5M PRN PRN Reason: Chest Pain Carvedilol [Coreg] 25 mg PO BID Potassium Chloride ER [K-Dur 10] 10 meq PO DAILY Pantoprazole Sodium [Protonix] 40 mg PO DAILY Lisinopril [Prinivil] 5 mg PO DAILY Levothyroxine Sodium [Synthroid] 112 mcg PO DAILY Furosemide [Lasix] 20 mg PO DAILY Ferrous Sulfate [Feosol] 325 mg PO BID busPIRone HCL [Buspar] 7.5 mg PO BID Baclofen [Lioresal] 10 mg PO TID Aspirin [Adult Low Dose Aspirin EC] 81 mg PO DAILY Apixaban [Eliquis] 5 mg PO BID Amiodarone [Cordarone] 200 mg PO DAILY Montelukast [Singulair] 10 mg PO DAILY Insulin Detemir (Levemir) [Levemir] 28 unit SQ DAILY Insulin Aspart [NovoLOG] 10 unit SQ TID Gabapentin 800 mg PO TID Artificial Tears-Hypromellose [Artificial Tear Drops] 1 drop BOTH EYES BID Discontinued metFORMIN HCL [Glucophage] 500 mg PO BID Discharge Medication List Atorvastatin [Lipitor] 10 mg PO DAILY 11/27/15 [History] Nitroglycerin Sl Tabs [Nitrostat] 0.4 mg SUBLINGUAL Q5M PRN 03/05/16 [History] Carvedilol [Coreg] 25 mg PO BID 01/30/17 [History] Amiodarone [Cordarone] 200 mg PO DAILY 05/12/18 [History] Apixaban [Eliquis] 5 mg PO BID 05/12/18 [History] Aspirin [Adult Low Dose Aspirin EC] 81 mg PO DAILY 05/12/18 [History] Baclofen [Lioresal] 10 mg PO TID 05/12/18 [History] Ferrous Sulfate [Feosol] 325 mg PO BID 05/12/18 [History] Furosemide [Lasix] 20 mg PO DAILY 05/12/18 [History] Levothyroxine Sodium [Synthroid] 112 mcg PO DAILY 05/12/18 [History] Lisinopril [Prinivil] 5 mg PO DAILY 05/12/18 [History] Pantoprazole Sodium [Protonix] 40 mg PO DAILY 05/12/18 [History] Potassium Chloride ER [K-Dur 10] 10 meq PO DAILY 05/12/18 [History] busPIRone HCL [Buspar] 7.5 mg PO BID 05/12/18 [History] Artificial Tears-Hypromellose [Artificial Tear Drops] 1 drop BOTH EYES BID 09/09 [History] Gabapentin 800 mg PO TID 09/09/18 [History] Insulin Aspart [NovoLOG] 10 unit SQ TID 09/09/18 [History] Insulin Detemir (Levemir) [Levemir] 28 unit SQ DAILY 09/09/18 [History] Montelukast [Singulair] 10 mg PO DAILY 09/09/18 [History] Albuterol Inhaler [Ventolin Hfa Inhaler] 1 - 2 puff INHALATION Q6HR PRN #1 inhaler 09/12/18 [Rx] predniSONE 10 mg PO DAILY #30 tab 09/12/18 [Rx] Ipratropium-Albuterol Nebulize [Duoneb 0.5 mg-3 mg/3 ml Soln] 3 ml INHALATION QID 30 Days #5 box 09/13/18 [Rx] metFORMIN HCL [Glucophage] 1,000 mg PO BID #60 tab 09/13/18 [Rx] Follow up Appointment(s)/Referral(s): Nonstaff,Physician [Primary Care Provider] - 3 Days (Please call and establish for follow up care) Ana Paula Cardona MD [STAFF PHYSICIAN] - 09/28/18 1:00 pm Patient Instructions/Handouts: Influenza (DC) Discharge Disposition: HOME SELF-CARE
== END 2018-09-13 13:00 | disposition home or self-care (01) | DRG 193 ==
LOC: EC 10:05 → 4SSUR 13:21
PROVIDERS: ADMIT Internal Medicine; ATTEND Internal Medicine
DX: J10.01 Influenza due to other identified influenza virus with the same other identified influenza virus pneumonia (principal); J96.01 Acute respiratory failure with hypoxia; J96.02 Acute respiratory failure with hypercapnia; J44.1 Chronic obstructive pulmonary disease with (acute) exacerbation; F32.9 Major depressive disorder, single episode, unspecified; I25.10 Atherosclerotic heart disease of native coronary artery without angina pectoris; E03.9 Hypothyroidism, unspecified; E11.42 Type 2 diabetes mellitus with diabetic polyneuropathy; I10 Essential (primary) hypertension; E11.65 Type 2 diabetes mellitus with hyperglycemia; E66.01 Morbid (severe) obesity due to excess calories; E78.5 Hyperlipidemia, unspecified; G47.33 Obstructive sleep apnea (adult) (pediatric); I48.0 Paroxysmal atrial fibrillation; T38.0X5A Adverse effect of glucocorticoids and synthetic analogues, initial encounter; H91.90 Unspecified hearing loss, unspecified ear; I25.2 Old myocardial infarction; Z95.5 Presence of coronary angioplasty implant and graft; Z87.891 Personal history of nicotine dependence; Z68.36 Body mass index [BMI] 36.0-36.9, adult; Z99.81 Dependence on supplemental oxygen; Z79.899 Other long term (current) drug therapy; Z79.890 Hormone replacement therapy; Z79.82 Long term (current) use of aspirin; Z79.4 Long term (current) use of insulin; Z79.01 Long term (current) use of anticoagulants
CPT/HCPCS: 36415; 71046; 80053; 81003; 83605; 84484; 85025; 85379; 85610; 85730; 87040; 87086; 87502; 93005; 94640; 96365; 96375; 99285

== ENCOUNTER 2018-09-22 11:47 | Emergency (ER) | payer MEDICARE, OTHER ==
[2018-09-22 12:27] VITALS: RESP 22
[2018-09-22] MEDS ORDERED: SODIUM CHLORIDE 0.9% 1,000 ML IV STA ×2 (12:35)
[2018-09-22] MEDS ORDERED: MORPHINE SULFATE 4 MG/ML SYRINGE IV STA (12:35)
--- NOTE | 2018-09-22 12:53 | ED ---
Nausea/Vomiting/Diarrhea HPI - General Chief complaint: Nausea/Vomiting/Diarrhea Stated complaint: NVD Time Seen by Provider: 09/22/18 12:18 Source: patient, EMS Mode of arrival: EMS Limitations: language barrier - History of Present Illness Initial comments: Patient is a 68-year-old male presenting for abdominal pain. The patient is mute and deaf and therefore this history was taken through her writing on a piece of paper. 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 However, the patient states that he has been having lower abdominal pain since as well as diarrhea. He denies any nausea or vomiting and states that he has had fever. He denies any chest pain or shortness breath. - Related Data Home Medications Medication Instructions Recorded Confirmed Atorvastatin [Lipitor] 10 mg PO DAILY 11/27/15 09/22/18 Nitroglycerin Sl Tabs [Nitrostat] 0.4 mg SUBLINGUAL Q5M PRN 03/05/16 09/22/18 Carvedilol [Coreg] 25 mg PO BID 01/30/17 09/22/18 Amiodarone [Cordarone] 100 mg PO DAILY 05/12/18 09/22/18 Apixaban [Eliquis] 5 mg PO BID 05/12/18 09/22/18 Aspirin [Adult Low Dose Aspirin EC] 81 mg PO DAILY 05/12/18 09/22/18 Baclofen [Lioresal] 10 mg PO TID 05/12/18 09/22/18 Ferrous Sulfate [Feosol] 325 mg PO DAILY 05/12/18 09/22/18 Furosemide [Lasix] 20 mg PO DAILY 05/12/18 09/22/18 Levothyroxine Sodium [Synthroid] 112 mcg PO DAILY 05/12/18 09/22/18 Lisinopril [Prinivil] 5 mg PO DAILY 05/12/18 09/22/18 Pantoprazole Sodium [Protonix] 40 mg PO DAILY 05/12/18 09/22/18 Potassium Chloride ER [K-Dur 10] 10 meq PO DAILY 05/12/18 09/22/18 Gabapentin 800 mg PO BID 09/09/18 09/22/18 Insulin Aspart [NovoLOG] 10 unit SQ AC-TID 09/09/18 09/22/18 Insulin Detemir (Levemir) [Levemir] 10 unit SQ HS 09/09/18 09/22/18 Montelukast [Singulair] 10 mg PO DAILY 09/09/18 09/22/18 Carboxymethylcellulos/Glycerin 1 drop BOTH EYES TID 09/22/18 09/22/18 [Refresh Repair 0.5-0.9% Drop] Insulin Detemir [Levemir Flextouch] 28 units SQ DAILY 09/22/18 09/22/18 busPIRone HCl [Buspar] 10 mg PO TID 09/22/18 09/22/18 metFORMIN HCL [Glucophage] 500 mg PO BID 09/22/18 09/22/18 Previous Rx's Medication Instructions Recorded Vancomycin HCl [Vancocin HCl] 125 mg PO Q6HR 10 Days #40 capsule 09/22/18 Allergies Allergy/AdvReac Type Severity Reaction Status Date / Time No Known Allergies Allergy Verified 09/22/18 12:19 Review of Systems ROS Statement: Those systems with pertinent positive or pertinent negative responses have been documented in the HPI. Constitutional: Positive for chills, fatigue and fever. HENT: Negative for congestion. Respiratory: Negative for chest tightness, shortness of breath and wheezing. Negative for cough Cardiovascular: Negative for chest pain and palpitations. Gastrointestinal: Positive for abdominal pain. Negative for abdominal distention,nausea and vomiting. Positive for diarrhea Genitourinary: Negative for dysuria. Musculoskeletal: Negative for back pain, neck pain and neck stiffness. Skin: Negative for color change. Neurological: Negative for dizziness, speech difficulty, weakness and light- headedness. Psychiatric/Behavioral: Negative for agitation and confusion. Negative for anxiety ROS Other: All systems not noted in ROS Statement are negative. Past Medical History Past Medical History: Atrial Fibrillation, Coronary Artery Disease (CAD), Diabetes Mellitus, Hearing Disorder / Deafness, Hyperlipidemia, Hypertension, Myocardial Infarction ([place]), Skin Disorder, Sleep Apnea/CPAP/BIPAP Additional Past Medical History / Comment(s): Pt is deaf, IDDM type II, bilatera l hands/arms and leg/feet neuropathy, JAMEY with no current CPAP use, psoriasis, constipation, pt needs oral surgery. paroxsymal afib. Pt is a Jehovah Witness and is not to receive blood. Last Myocardial Infarction Date:: 2008 History of Any Multi-Drug Resistant Organisms: None Reported Past Surgical History: Heart Catheterization With Stent Additional Past Surgical History / Comment(s): One cardiac stent placed approx 2008 at [facility], Past Anesthesia/Blood Transfusion Reactions: No Reported Reaction Additional Past Anesthesia/Blood Transfusion Reaction / Comment(s): DOES NOT RECIEVE BLOOD TRANSFUSIONS Date of Last Stent Placement:: 2008 Past Psychological History: Depression Smoking Status: Former smoker Past Alcohol Use History: None Reported Past Drug Use History: None Reported - Past Family History Father History Unknown: Yes Additional Family Medical History / Comment(s): FOSTER CHILD, NO CONTACT WITH BIOLOGICAL FAMILY SINCE AGE 2. Mother History Unknown: Yes Family Medical History: No Reported History General Exam - General Exam Comments Initial Comments: Constitutional: Pt appears well-developed and well-nourished. No distress. Head: Normocephalic and atraumatic. Eyes: EOM are normal. Neck: Normal range of motion. Neck supple. Cardiovascular: Normal rate, regular rhythm, S1 normal, S2 normal and normal heart sounds. Exam reveals no gallop and no friction rub. No murmur heard. Pulmonary/Chest: Effort normal and breath sounds normal. No tachypnea and no bradypnea. No respiratory distress. No wheezes or rales noted. Abdominal: Soft. Bowel sounds are normal. Pt exhibits no shifting dullness, no distension, no pulsatile liver, no fluid wave, no abdominal bruit and no ascites. There is no rigidity, no rebound, no guarding, no tenderness at McBurney's point and negative Kolb's sign. There is mild tenderness in the suprapubic region Musculoskeletal: Normal range of motion. Neurological: Pt is alert and oriented to person, place, and time. No cranial nerve deficit. Skin: Skin is warm and dry. No rash noted. Pt is not diaphoretic. No erythema. No pallor. Psychiatric: Pt has a normal mood and affect. Pt behavior is normal. Thought content normal. Limitations: language barrier Course Vital Signs 09/22/18 09/22/18 12:13 17:23 Temperature 99.4 F 97.7 F Pulse Rate 78 68 Respiratory 22 22 Rate Blood Pressure 125/56 119/52 O2 Sat by Pulse 95 95 Oximetry Medical Decision Making - Medical Decision Making Laboratory studies showed that there was significant leukocytosis of 22.1 but there was no evidence of acute kidney injury, electrolyte derangements. There was some mild transaminitis in because of these findings, CT of the abdomen was performed and showed no evidence of acute pathology. However, there is high suspicion for C. diff infection and therefore the patient was given a prescription for by mouth vancomycin as well as given his first dose here. It is thought that the patient is safe to be discharged because his vital signs are within normal limits.Explained all labs and diagnostic test results and that we will discharge the patient home and patient is to follow up with PCP in 1-2 days and return to the ED if symptoms worsen. Pt is agreeable to plan. - Lab Data Result diagrams: 09/22/18 13:15 09/22/18 13:15 Lab Results 09/22/18 09/22/18 09/22/18 Range/Units 13:15 13:15 14:52 WBC 22.1 H (3.8-10.6) k/uL RBC 4.58 (4.30-5.90) m/uL Hgb 14.8 (13.0-17.5) gm/dL Hct 47.2 (39.0-53.0) % MCV 102.9 H (80.0-100.0) fL MCH 32.2 (25.0-35.0) pg MCHC 31.3 (31.0-37.0) g/dL RDW 13.5 (11.5-15.5) % Plt Count 125 L (150-450) k/uL Neutrophils % 95 % Lymphocytes % 1 % Monocytes % 3 % Eosinophils % 1 % Basophils % 0 % Neutrophils # 20.9 H (1.3-7.7) k/uL Lymphocytes # 0.3 L (1.0-4.8) k/uL Monocytes # 0.6 (0-1.0) k/uL Eosinophils # 0.3 (0-0.7) k/uL Basophils # 0.0 (0-0.2) k/uL Macrocytosis Slight Sodium 136 L (137-145) mmol/L Potassium 5.1 (3.5-5.1) mmol/L Chloride 101 (98-107) mmol/L Carbon Dioxide 29 (22-30) mmol/L Anion Gap 6 mmol/L BUN 29 H (9-20) mg/dL Creatinine 1.11 (0.66-1.25) mg/dL Est GFR (CKD-EPI)AfAm 78 (>60 ml/min/1.73 sqM) Est GFR (CKD-EPI)NonAf 68 (>60 ml/min/1.73 sqM) Glucose 260 H (74-99) mg/dL Calcium 8.5 (8.4-10.2) mg/dL Total Bilirubin 1.5 H (0.2-1.3) mg/dL AST 34 (17-59) U/L ALT 82 H (21-72) U/L Alkaline Phosphatase 61 (38-126) U/L Total Protein 6.0 L (6.3-8.2) g/dL Albumin 3.5 (3.5-5.0) g/dL Lipase 127 (23-300) U/L Urine Color Yellow Urine Appearance Clear (Clear) Urine pH 5.0 (5.0-8.0) Ur Specific Webb 1.012 (1.001-1.035) Urine Protein Negative (Negative) Urine Glucose (UA) 3+ H (Negative) Urine Ketones Negative (Negative) Urine Blood Negative (Negative) Urine Nitrite Negative (Negative) Urine Bilirubin Negative (Negative) Urine Urobilinogen <2.0 (<2.0) mg/dL Ur Leukocyte Esterase Negative (Negative) Disposition Clinical Impression: Diarrhea, Leukocytosis Disposition: HOME SELF-CARE Condition: Good Instructions (If sedation given, give patient instructions): Acute Diarrhea (ED) Prescriptions: Vancomycin HCl [Vancocin HCl] 125 mg PO Q6HR 10 Days #40 capsule Is patient prescribed a controlled substance at d/c from ED?: No Referrals: Sherron Anderson MD [Primary Care Provider] - 1-2 days Time of Disposition: 16:24
[2018-09-22 13:58] LABS: Basophils % (A) 0 %; Eosinophils # (A) 0.3 k/uL (0-0.7); Eosinophils % (A) 1 %; HCT 47.2 % (39.0-53.0); HGB 14.8 gm/dL (13.0-17.5); Lymphocytes # (A) 0.3 k/uL (1.0-4.8); Lymphocytes % (A) 1 %; MCH 32.2 pg (25.0-35.0); MCHC 31.3 g/dL (31.0-37.0); MCV 102.9 fL (80.0-100.0); Macrocytosis Slight; Mean Platelet Volume 7.6; Monocytes # (A) 0.6 k/uL (0-1.0); Monocytes % (A) 3 %; Neutrophils # (A) 20.9 k/uL (1.3-7.7); Neutrophils % (A) 95 %; Platelet Count 125 k/uL (150-450); RBC 4.58 m/uL (4.30-5.90); RDW 13.5 % (11.5-15.5); WBC 22.1 k/uL (3.8-10.6)
[2018-09-22 14:06] LABS: Albumin 3.5 g/dL (3.5-5.0); Calcium 8.5 mg/dL (8.4-10.2); Potassium 5.1 mmol/L (3.5-5.1); Total Bilirubin 1.5 mg/dL (0.2-1.3)
--- NOTE | 2018-09-22 14:48 | CT ---
EXAMINATION TYPE: CT abdomen pelvis w con DATE OF EXAM: 09/22/2018 COMPARISON: 11/27/2015 HISTORY: Abdominal pain CT DLP: 1767 mGycm Automated exposure control for dose reduction was used. TECHNIQUE: Helical acquisition of images was performed from the lung bases through the pelvis. CONTRAST: Performed without Oral Contrast and with IV Contrast, patient injected with 100 mL of Isovue 300. FINDINGS: LUNG BASES: Dependent bibasilar atelectasis is seen at the lung bases. Heart is enlarged. Sternotomy wires are present in the midline. LIVER/GB: There is a somewhat heterogenous hepatic attenuation with a 9 mm probable hepatic cyst. Con tour the liver is smooth. Morphology appears noncirrhotic at this time. PANCREAS: No significant abnormality is seen. SPLEEN: No significant abnormality is seen. ADRENALS: No significant abnormality is seen. KIDNEYS: Kidneys enhance and excrete symmetrically without hydronephrosis. URINARY BLADDER: Incompletely distended and incompletely evaluated ADENOPATHY: No greater than 1 cm short axis lymph nodes within the abdomen or pelvis. OSSEOUS STRUCTURES: Moderate multilevel degenerative disc disease of the spine. BOWEL: No dilated large or small bowel. Appendix is within normal limits of size. No pericolonic fat stranding is seen. OTHER: Moderate atherosclerosis is present of the abdominal aorta and its branches. IMPRESSION: 1. NO ACUTE INTRA-ABDOMINAL PROCESS. 2. SLIGHT HETEROGENEITY OF THE HEPATIC PARENCHYMA IS SEEN THAT COULD REPRESENT EARLY HEPATOCELLULAR D ISEASE OR EARLY HEPATIC STEATOSIS. CORRELATE WITH LIVER FUNCTION TESTS.
[2018-09-22 15:04] LABS: Appearance,Urine Clear (Clear); Bilirubin,Urine Negative (Negative); Blood,Urine Negative (Negative); Color,Urine Yellow; Glucose,Urine (UA) 3+ (Negative); Ketones,Urine Negative (Negative); Leukocyte Esterase,Urine Negative (Negative); Nitrite,Urine Negative (Negative); Protein,Urine Negative (Negative); Specific Gravity,Urine 1.012 (1.001-1.035); Urobilinogen,Urine <2.0 mg/dL (<2.0)
[2018-09-22] MEDS ORDERED: VANCOMYCIN ORAL SOLUTION 250 MG/5 ML BOTTLE PO STA (16:23)
[2018-09-22 17:26] VITALS: BP 119/52; PULSE 68; TEMP 97.7
== END 2018-09-22 17:27 | disposition home or self-care (01) ==
LOC: EC 11:47
DX: D72.829 Elevated white blood cell count, unspecified (principal); R19.7 Diarrhea, unspecified; R74.0 Nonspecific elevation of levels of transaminase and lactic acid dehydrogenase [LDH]; R10.30 Lower abdominal pain, unspecified; R50.9 Fever, unspecified; I48.0 Paroxysmal atrial fibrillation; I25.10 Atherosclerotic heart disease of native coronary artery without angina pectoris; E78.5 Hyperlipidemia, unspecified; I10 Essential (primary) hypertension; E11.42 Type 2 diabetes mellitus with diabetic polyneuropathy; I25.2 Old myocardial infarction; F32.9 Major depressive disorder, single episode, unspecified; H91.3 Deaf nonspeaking, not elsewhere classified; Z87.891 Personal history of nicotine dependence; Z79.01 Long term (current) use of anticoagulants; Z79.4 Long term (current) use of insulin; Z79.82 Long term (current) use of aspirin; Z79.890 Hormone replacement therapy; Z79.899 Other long term (current) drug therapy; Z95.5 Presence of coronary angioplasty implant and graft
CPT/HCPCS: 36415; 80053; 83690; 85025; 81003; 74177; 99285; 96374; 96361 ×3; J2270; Q9967

== ENCOUNTER 2018-10-09 09:17 | Emergency (ER) | payer MEDICARE, OTHER ==
--- NOTE | 2018-10-09 10:25 | ED ---
General Adult HPI - General Chief complaint: Fall Stated complaint: Fall, head injury Time Seen by Provider: 10/09/18 10:08 Source: patient, EMS, RN notes reviewed, old records reviewed Mode of arrival: EMS Limitations: language barrier - History of Present Illness Initial comments: Cuauhtemoc is a 68-year-old male who was deaf who presents emergency Department after fall from his bed. Patient reports that he hit his head and neck while tripped over the blankets in bed. Patient states that he felt a shooting pain down his neck. He complains of some right shoulder pain. He denies any chest pain, or shortness of breath. He denies any abdominal pain nausea or vomiting. Patient states that he has no other extremity pain besides the right shoulder. Patient states that he has a history of diabetic neuropathy. Patient's communication was done by writing with pen and paper. - Related Data Home Medications Medication Instructions Recorded Confirmed Atorvastatin [Lipitor] 10 mg PO DAILY 11/27/15 10/09/18 Carvedilol [Coreg] 25 mg PO BID 01/30/17 10/09/18 Amiodarone [Cordarone] 200 mg PO DAILY 05/12/18 10/09/18 Apixaban [Eliquis] 5 mg PO BID 05/12/18 10/09/18 Aspirin [Adult Low Dose Aspirin EC] 81 mg PO DAILY 05/12/18 10/09/18 Baclofen [Lioresal] 10 mg PO TID 05/12/18 10/09/18 Ferrous Sulfate [Feosol] 325 mg PO BID 05/12/18 10/09/18 Furosemide [Lasix] 20 mg PO DAILY 05/12/18 10/09/18 Levothyroxine Sodium [Synthroid] 112 mcg PO DAILY 05/12/18 10/09/18 Lisinopril [Prinivil] 5 mg PO DAILY 05/12/18 10/09/18 Pantoprazole Sodium [Protonix] 40 mg PO DAILY 05/12/18 10/09/18 Potassium Chloride ER [K-Dur 10] 10 meq PO DAILY 05/12/18 10/09/18 Gabapentin 800 mg PO TID 09/09/18 10/09/18 Insulin Aspart [NovoLOG] 10 unit SQ AC-TID 09/09/18 10/09/18 Montelukast [Singulair] 10 mg PO DAILY 09/09/18 10/09/18 Carboxymethylcellulos/Glycerin 1 drop BOTH EYES TID 09/22/18 10/09/18 [Refresh Repair 0.5-0.9% Drop] Insulin Detemir [Levemir Flextouch] 28 units SQ DAILY 09/22/18 10/09/18 metFORMIN HCL [Glucophage] 500 mg PO BID 09/22/18 10/09/18 busPIRone HCL [Buspar] 7.5 mg PO BID@0900,1700 10/09/18 10/09/18 Previous Rx's Medication Instructions Recorded Ibuprofen [Motrin] 600 mg PO Q8HR PRN #20 tab 10/09/18 Allergies Allergy/AdvReac Type Severity Reaction Status Date / Time No Known Allergies Allergy Verified 10/09/18 09:32 Review of Systems ROS Statement: Those systems with pertinent positive or pertinent negative responses have been documented in the HPI. ROS Other: All systems not noted in ROS Statement are negative. Past Medical History Past Medical History: Atrial Fibrillation, Coronary Artery Disease (CAD), Diabetes Mellitus, Hearing Disorder / Deafness, Hyperlipidemia, Hypertension, Myocardial Infarction ([place]), Skin Disorder, Sleep Apnea/CPAP/BIPAP Additional Past Medical History / Comment(s): Pt is deaf, IDDM type II, bilateral hands/arms and leg/feet neuropathy, JAMEY with no current CPAP use, psoriasis, constipation, pt needs oral surgery. paroxsymal afib. Pt is a Jehovah Witness and is not to receive blood. Last Myocardial Infarction Date:: 2008 History of Any Multi-Drug Resistant Organisms: None Reported Past Surgical History: Heart Catheterization With Stent Additional Past Surgical History / Comment(s): One cardiac stent placed approx 2008 at [facility], Past Anesthesia/Blood Transfusion Reactions: No Reported Reaction Additional Past Anesthesia/Blood Transfusion Reaction / Comment(s): DOES NOT RECIEVE BLOOD TRANSFUSIONS Date of Last Stent Placement:: 2008 Past Psychological History: Depression Smoking Status: Former smoker Past Alcohol Use History: None Reported Past Drug Use History: None Reported - Past Family History Father History Unknown: Yes Additional Family Medical History / Comment(s): FOSTER CHILD, NO CONTACT WITH BIOLOGICAL FAMILY SINCE AGE 2. Mother History Unknown: Yes Family Medical History: No Reported History General Exam - General Exam Comments Initial Comments: this is a 68-year-old male. Patient is deaf. Patient appears in no distress. He refused c-collar. Limitations: language barrier General appearance: alert, in no apparent distress Head exam: Present: atraumatic, normocephalic, normal inspection Eye exam: Present: normal appearance, PERRL, EOMI. Absent: scleral icterus, conjunctival injection, periorbital swelling ENT exam: Present: normal exam, mucous membranes moist Neck exam: Present: normal inspection, full ROM. Absent: tenderness, meningismus, lymphadenopathy, other (cervical spinal tenderness) Respiratory exam: Present: normal lung sounds bilaterally. Absent: respiratory distress, wheezes, rales, rhonchi, stridor Cardiovascular Exam: Present: regular rate, normal rhythm, normal heart sounds. Absent: systolic murmur, diastolic murmur, rubs, gallop, clicks GI/Abdominal exam: Present: soft, normal bowel sounds. Absent: distended, tenderness, guarding, rebound, rigid Extremities exam: Present: normal inspection, full ROM, normal capillary refill, other (Patient reports pain with range of motion of abduction of the right shoulder.). Absent: tenderness, pedal edema, joint swelling, calf tenderness Back exam: Present: normal inspection Neurological exam: Present: alert Psychiatric exam: Present: normal affect, normal mood Skin exam: Present: warm, dry, intact, normal color. Absent: rash Course Vital Signs 10/09/18 10/09/18 09:30 11:28 Temperature 98.2 F Pulse Rate 72 61 Respiratory 18 20 Rate Blood Pressure 168/60 154/80 O2 Sat by Pulse 95 95 Oximetry Medical Decision Making - Medical Decision Making Patient is a 68-year-old male who presents emergency department today after a fall from bed. He went head and neck pain. Shooting pain down the neck into the right arms. EKG was negative for any acute process. Chest x-ray is normal. CT brain and C-spine are negative for any acute abnormalities. Patient wasn't for the results. He was in the 1 pain over his right shoulder pain. Patient advised of the Motrin Tylenol for headache and pain. Discussed that Patient should follow-up with his primary care doctor. Patient will be discharged at this time with close follow-up. Questions were answered and return parameters were discussed. 10/09/18 11:03 EKG shows normal sinus rhythm with voltage QRS. Incomplete report hemorrhage 5. Borderline EKG. Ventricular 60 bpm. Pulse 184 ms. Respirations 116 seconds. QT QTc is 440 ms. - Radiology Data Radiology results: report reviewed CT of the brain and C-spine are negative for any acute process.X-ray right shoulder is negative for any acute dislocation or fracture. Chest x-rays negative for any acute cardio pulmonary disease. Disposition Clinical Impression: Fall, Head injury, Right shoulder strain Disposition: HOME SELF-CARE Condition: Good Instructions (If sedation given, give patient instructions): Rotator Cuff Injury (ED), Head Injury (ED) Additional Instructions: Patient advised to follow-up with PCP. Patient should return to emergency dep artment if any alarming signs or symptoms occur.Patient should take Motrin Tylenol for pain. Use warm compresses over neck and shoulder. Prescriptions: Ibuprofen [Motrin] 600 mg PO Q8HR PRN #20 tab PRN Reason: Pain Is patient prescribed a controlled substance at d/c from ED?: No Referrals: Sherron Anderson MD [Primary Care Provider] - 1-2 days Time of Disposition: 11:50
--- NOTE | 2018-10-09 10:58 | CT ---
EXAMINATION TYPE: CT brain sylvia mondragon con DATE OF EXAM: 10/09/2018 COMPARISON: 11/28/2014 HISTORY: Fall, head injury CT DLP: 1741.3 mGycm Automated exposure control for dose reduction was used. TECHNIQUE: CT scan of the head and cervical spine are performed without contrast. FINDINGS: There is no acute intracranial hemorrhage, mass effect, or midline shift identified. The ventricles and sulci are within normal limits in size. The globes are intact and the visualized sin uses are clear. Cervical spine is visualized in its entirety from C1 through upper thoracic levels and demonstrates s atisfactory alignment without evidence of acute fracture or dislocation. Prevertebral soft tissue ap pears within normal limits. The C1-C2 articulation is unremarkable. 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 IMPRESSION: 1. There is no acute fracture or dislocation evident in the cervical spine. 2. No acute intracranial hemorrhage, mass effect, or midline shift is seen.
[2018-10-09] MEDS ORDERED: HYDROcodone/APAP 5-325MG 1 EACH TAB PO STA (11:01)
--- NOTE | 2018-10-09 11:33 | XR ---
EXAMINATION TYPE: XR chest 2V DATE OF EXAM: 10/09/2018 COMPARISON: NONE HISTORY: Shortness of breath TECHNIQUE: Frontal and lateral views of the chest are obtained. FINDINGS: Scattered senescent parenchymal changes noted. Hyperinflation compatible with COPD. No evidence for infiltrate. No evidence for atelectasis. No evidence for pneumothorax. Heart size is stable. Mediastinal structures are stable and grossly unremarkable. No evidence for hilar prominence. Degenerative changes dorsal spine. IMPRESSION: 1. No evidence for acute pulmonary disease.
--- NOTE | 2018-10-09 11:35 | XR ---
EXAMINATION TYPE: XR shoulder complete RT DATE OF EXAM: 10/09/2018 CLINICAL HISTORY: pain TECHNIQUE: Three views of the right shoulder are obtained. COMPARISON: None FINDINGS: There is no acute fracture/dislocation evident. The acromioclavicular and glenohumeral mercedes int spaces appear within normal limits. The visualized ribs are intact and unremarkable. IMPRESSION: 1. There is no acute fracture or dislocation. ICD 10 NO FRACTURE, INITIAL EVALUATION
[2018-10-09 12:18] VITALS: BP 137/51; PULSE 86; RESP 18; TEMP 98
== END 2018-10-09 12:18 | disposition home or self-care (01) ==
LOC: EC 09:17
DX: S09.90XA Unspecified injury of head, initial encounter (principal); S46.911A Strain of unspecified muscle, fascia and tendon at shoulder and upper arm level, right arm, initial encounter; M54.2 Cervicalgia; I48.0 Paroxysmal atrial fibrillation; I25.10 Atherosclerotic heart disease of native coronary artery without angina pectoris; E11.40 Type 2 diabetes mellitus with diabetic neuropathy, unspecified; E78.5 Hyperlipidemia, unspecified; I10 Essential (primary) hypertension; I25.2 Old myocardial infarction; G47.33 Obstructive sleep apnea (adult) (pediatric); Z99.89 Dependence on other enabling machines and devices; Z95.5 Presence of coronary angioplasty implant and graft; Z87.891 Personal history of nicotine dependence; Z79.01 Long term (current) use of anticoagulants; Z79.82 Long term (current) use of aspirin; Z79.890 Hormone replacement therapy; Z79.4 Long term (current) use of insulin; Z79.899 Other long term (current) drug therapy; Z53.29 Procedure and treatment not carried out because of patient's decision for other reasons; W06.XXXA Fall from bed, initial encounter
CPT/HCPCS: 70450; 71046; 72125; 99284

== ENCOUNTER 2019-07-29 16:15 | Emergency (ER) | payer MEDICARE, OTHER ==
[2019-07-29 16:38] VITALS: RESP 18
[2019-07-29 17:02] LABS: Basophils # (A) 0.1 k/uL (0-0.2); Basophils % (A) 1 %; Eosinophils # (A) 0.1 k/uL (0-0.7); Eosinophils % (A) 3 %; HCT 36.3 % (39.0-53.0); HGB 11.5 gm/dL (13.0-17.5); Hypochromasia Slight; Lymphocytes # (A) 0.6 k/uL (1.0-4.8); Lymphocytes % (A) 11 %; MCH 30.5 pg (25.0-35.0); MCHC 31.7 g/dL (31.0-37.0); MCV 96.2 fL (80.0-100.0); Mean Platelet Volume 7.3; Monocytes # (A) 0.3 k/uL (0-1.0); Monocytes % (A) 6 %; Neutrophils # (A) 4.3 k/uL (1.3-7.7); Neutrophils % (A) 78 %; Platelet Count 222 k/uL (150-450); RBC 3.77 m/uL (4.30-5.90); RDW 15.4 % (11.5-15.5); WBC 5.6 k/uL (3.8-10.6)
[2019-07-29 17:12] LABS: INR 1.1 (<1.2); Partial Thromboplastin Time 27.5 sec (22.0-30.0); Prothrombin Time 11.1 sec (9.0-12.0)
--- NOTE | 2019-07-29 17:14 | ED ---
Chest Pain HPI - General Chief Complaint: Chest Pain Stated Complaint: Cardiac Issues Time Seen by Provider: 07/29/19 16:20 Source: patient, EMS, RN notes reviewed, old records reviewed Mode of arrival: EMS Limitations: language barrier - History of Present Illness Initial Comments: This is a 69-year-old male with a history of heart disease atrial fibrillation diabetes hyperlipidemia hypertension history of UT in the past also who is deaf who presents today with complaints of dizziness difficulty breathing and feeling somewhat funny in his head that. This information was gathered through note writing. Patient is deaf. He states is a chronic pain for about 3 years. No reports of fevers chills nausea vomiting sweats. He is on blood thinners. No other information available at this time. MD Complaint: chest pain, other - Related Data Home Medications Medication Instructions Recorded Confirmed Atorvastatin [Lipitor] 10 mg PO DAILY 11/27/15 10/09/18 Carvedilol [Coreg] 25 mg PO BID 01/30/17 10/09/18 Amiodarone [Cordarone] 200 mg PO DAILY 05/12/18 10/09/18 Apixaban [Eliquis] 5 mg PO BID 05/12/18 10/09/18 Aspirin [Adult Low Dose Aspirin EC] 81 mg PO DAILY 05/12/18 10/09/18 Baclofen [Lioresal] 10 mg PO TID 05/12/18 10/09/18 Ferrous Sulfate [Feosol] 325 mg PO BID 05/12/18 10/09/18 Furosemide [Lasix] 20 mg PO DAILY 05/12/18 10/09/18 Levothyroxine Sodium [Synthroid] 112 mcg PO DAILY 05/12/18 10/09/18 Lisinopril [Prinivil] 5 mg PO DAILY 05/12/18 10/09/18 Pantoprazole Sodium [Protonix] 40 mg PO DAILY 05/12/18 10/09/18 Potassium Chloride ER [K-Dur 10] 10 meq PO DAILY 05/12/18 10/09/18 Gabapentin 800 mg PO TID 09/09/18 10/09/18 Insulin Aspart [NovoLOG] 10 unit SQ AC-TID 09/09/18 10/09/18 Montelukast [Singulair] 10 mg PO DAILY 09/09/18 10/09/18 Carboxymethylcellulos/Glycerin 1 drop BOTH EYES TID 09/22/18 10/09/18 [Refresh Repair 0.5-0.9% Drop] Insulin Detemir [Levemir Flextouch] 28 units SQ DAILY 09/22/18 10/09/18 metFORMIN HCL [Glucophage] 500 mg PO BID 09/22/18 10/09/18 busPIRone HCL [Buspar] 7.5 mg PO BID@0900,1700 10/09/18 10/09/18 Previous Rx's Medication Instructions Recorded Ibuprofen [Motrin] 600 mg PO Q8HR PRN #20 tab 10/09/18 Albuterol Sulfate 2.5 mg IH Q6HR PRN #120 vial.neb 07/29/19 Amoxicillin/Potassium Clav 1 tab PO Q12HR #20 tab 07/29/19 [Augmentin 875-125 Tablet] Meclizine [Antivert] 25 mg PO TID #20 tab 07/29/19 Allergies Allergy/AdvReac Type Severity Reaction Status Date / Time No Known Allergies Allergy Verified 07/29/19 16:30 Review of Systems ROS Statement: Those systems with pertinent positive or pertinent negative responses have been documented in the HPI. ROS Other: All systems not noted in ROS Statement are negative. Past Medical History Past Medical History: Atrial Fibrillation, Coronary Artery Disease (CAD), Diabetes Mellitus, Hearing Disorder / Deafness, Hyperlipidemia, Hypertension, Myocardial Infarction (UT), Skin Disorder, Sleep Apnea/CPAP/BIPAP Additional Past Medical History / Comment(s): Pt is deaf, IDDM type II, bilateral hands/arms and leg/feet neuropathy, JAMEY with no current CPAP use, psoriasis, constipation, pt needs oral surgery. paroxsymal afib. Pt is a Jehovah Witness and is not to receive blood. Last Myocardial Infarction Date:: 2008 History of Any Multi-Drug Resistant Organisms: None Reported Past Surgical History: Heart Catheterization With Stent Additional Past Surgical History / Comment(s): One cardiac stent placed approx 2008 at [facility], Past Anesthesia/Blood Transfusion Reactions: No Reported Reaction Additional Past Anesthesia/Blood Transfusion Reaction / Comment(s): DOES NOT RECIEVE BLOOD TRANSFUSIONS Date of Last Stent Placement:: 2008 Past Psychological History: Depression Smoking Status: Former smoker Past Alcohol Use History: None Reported Past Drug Use History: None Reported - Past Family History Father History Unknown: Yes Additional Family Medical History / Comment(s): FOSTER CHILD, NO CONTACT WITH BIOLOGICAL FAMILY SINCE AGE 2. Mother History Unknown: Yes Family Medical History: No Reported History General Exam - General Exam Comments Initial Comments: This is a well-developed well-nourished awake alert oriented 3 male Limitations: language barrier General appearance: alert, in no apparent distress Head exam: Present: atraumatic, normocephalic, normal inspection Eye exam: Present: normal appearance, PERRL, EOMI. Absent: scleral icterus, conjunctival injection, periorbital swelling ENT exam: Present: normal exam, mucous membranes moist Neck exam: Present: normal inspection. Absent: tenderness, meningismus, lymphadenopathy Respiratory exam: Present: decreased breath sounds. Absent: respiratory distress, wheezes, rales, rhonchi, stridor Cardiovascular Exam: Present: bradycardia, irregular rhythm. Absent: systolic murmur, diastolic murmur, rubs, gallop, clicks GI/Abdominal exam: Present: soft, normal bowel sounds. Absent: distended, tenderness, guarding, rebound, rigid Extremities exam: Present: full ROM, normal capillary refill, pedal edema, other (Some stasis changes). Absent: tenderness, joint swelling, calf tenderness Back exam: Present: normal inspection Neurological exam: Present: alert, oriented X3, CN II-XII intact Psychiatric exam: Present: normal affect, normal mood Skin exam: Present: warm, dry, intact, normal color. Absent: rash Course Vital Signs 07/29/19 07/29/19 07/29/19 16:30 18:00 19:09 Temperature 98.6 F Pulse Rate 58 L 67 68 Respiratory 18 18 Rate Blood Pressure 136/68 117/64 O2 Sat by Pulse 96 96 Oximetry 07/29/19 19:19 Temperature Pulse Rate 64 Respiratory Rate Blood Pressure O2 Sat by Pulse Oximetry - Reevaluation(s) Reevaluation #1: 07/29/19 17:59 Information gathered through an vascular technologist patient does present with classic headache dizziness going on for last 2-3 weeks getting worse also shortness of breath is getting worse especially with bending over to tie his shoes has had some lightheadedness occasional palpitations he does have a history of atrial fibrillation and has a history of UT with 3 bypasses and one stent in [facility]. He denies any fevers chills or sweats he does use home oxygen all the time and is instructed if he gets down to 89 range that he should use it. He does feel slightly short of breath at this time. No chest pain he does state that the frontal headache is somewhat worse with positional changes. Did have a slight runny nose but no fevers chills or sweats. He does get dizzy with certain head movement. Chest Pain MDM - MDM I did reevaluate patient several occasions he is feeling improved the CAT scan was negative for acute findings x-ray shows some evidence of mild increased markings is a poor respiratory effort. Patient does say he's feeling better after the updraft treatment he is in good condition for discharge he is in agreement with this so we placed on increased Lasix dosing for next 5 days he does have a nebulizer at home but needs the medication which I will write for he also be placed on Antivert and antibiotics for the suspected sinus infection. Disposition Clinical Impression: CHF (congestive heart failure), Vertigo, Sinusitis, Acute bronchospasm, Chronic atrial flutter Disposition: HOME SELF-CARE Condition: Good Instructions (If sedation given, give patient instructions): Heart Failure (ER), Vertigo (ED), Rhinosinusitis (ED), Bronchospasm (ED) Additional Instructions: Double up on your Lasix for the next 5 days. Follow-up with her doctor in next 2-3 days. Medication prescriptions sent to your preferred [facility] pharmacy Prescriptions: Albuterol Sulfate 2.5 mg IH Q6HR PRN #120 vial.neb PRN Reason: Dyspnea Meclizine [Antivert] 25 mg PO TID #20 tab Amoxicillin/Potassium Clav [Augmentin 875-125 Tablet] 1 tab PO Q12HR #20 tab Is patient prescribed a controlled substance at d/c from ED?: No Referrals: Sherron Anderson MD [Primary Care Provider] - 1-2 days
[2019-07-29 17:16] LABS: Calcium 8.4 mg/dL (8.4-10.2); Potassium 4.5 mmol/L (3.5-5.1); Total Bilirubin 1.2 mg/dL (0.2-1.3); Total Protein 7.2 g/dL (6.3-8.2)
--- NOTE | 2019-07-29 17:37 | XR ---
EXAMINATION TYPE: XR chest 2V DATE OF EXAM: 07/29/2019 COMPARISON: 10/09/2018 HISTORY: Fall. Pain TECHNIQUE: FINDINGS: There are sternal wires. There is no heart failure. There is poor inspiration with crowding of the lower lobe lung markings. I see no pulmonary consolidation. There is no pleural effusion. IMPRESSION: Poor inspiration that is worse than last exam. No heart failure.
[2019-07-29] MEDS ORDERED: MECLIZINE 12.5 MG TAB PO STA (17:56)
[2019-07-29] MEDS ORDERED: IPRATROPIUM-ALBUTEROL 3 ML NEB INHALATION STA (17:56)
[2019-07-29] MEDS ORDERED: FUROSEMIDE 10 MG/ML 4 ML VIAL IV STA (18:19)
--- NOTE | 2019-07-29 18:59 | CT ---
EXAMINATION TYPE: CT brain wo con DATE OF EXAM: 07/29/2019 COMPARISON: 10/09/2018 HISTORY: SOB, dizziness x2 weeks CT DLP: 1117.4 mGycm Automated exposure control for dose reduction was used. There is mild cerebral cortical atrophy. There is no mass effect nor midline shift. There is no sign of intracranial hemorrhage. Calvarium is intact. There is no evidence of cerebral edema. IMPRESSION: Mild cerebral atrophy. No acute intracranial abnormality. No change.
[2019-07-29 20:33] VITALS: BP 112/80; PULSE 90; TEMP 98
== END 2019-07-29 20:33 | disposition home or self-care (01) ==
LOC: EC 16:15
DX: I48.92 Unspecified atrial flutter (principal); J98.01 Acute bronchospasm; I11.0 Hypertensive heart disease with heart failure; I50.9 Heart failure, unspecified; J32.9 Chronic sinusitis, unspecified; R42 Dizziness and giddiness; I48.91 Unspecified atrial fibrillation; I25.10 Atherosclerotic heart disease of native coronary artery without angina pectoris; H91.90 Unspecified hearing loss, unspecified ear; E11.40 Type 2 diabetes mellitus with diabetic neuropathy, unspecified; E78.5 Hyperlipidemia, unspecified; I25.2 Old myocardial infarction; G47.33 Obstructive sleep apnea (adult) (pediatric); I45.10 Unspecified right bundle-branch block; Z79.01 Long term (current) use of anticoagulants; Z79.02 Long term (current) use of antithrombotics/antiplatelets; Z79.82 Long term (current) use of aspirin; Z79.890 Hormone replacement therapy; Z79.4 Long term (current) use of insulin; Z79.899 Other long term (current) drug therapy; Z87.891 Personal history of nicotine dependence; Z95.5 Presence of coronary angioplasty implant and graft; Z99.89 Dependence on other enabling machines and devices
CPT/HCPCS: 36415; 94640; 83880; 80053; 82550; 83690; 83735; 84484; 85025; 85610; 85730; 71046; 70450; 99285; 96374; J1940

== ENCOUNTER 2019-08-27 18:48 | Emergency (ER) | payer MEDICARE, OTHER ==
[2019-08-27 19:00] VITALS: BP 152/77; PULSE 78; RESP 16; TEMP 98
[2019-08-27] MEDS ORDERED: MORPHINE SULFATE 4 MG/ML SYRINGE IV STA (19:23)
[2019-08-27] MEDS ORDERED: ONDANSETRON 4 MG/2 ML VIAL IVP STA (19:23)
--- NOTE | 2019-08-27 19:28 | ED ---
General Adult HPI - General Chief complaint: Nausea/Vomiting/Diarrhea Stated complaint: N/V/D Time Seen by Provider: 08/27/19 18:55 Source: patient Mode of arrival: EMS Limitations: language barrier - History of Present Illness Initial comments: Dictation was produced using [employer] dictation software. please excuse any grammatical, word or spelling errors. Chief Complaint: 69-year-old male who is deaf has multiple comorbidities present s with nausea vomiting diarrhea and abdominal pain. History of Present Illness: 69-year-old male his multiple comorbidities. Patient is deaf and requires sign language to speak. chair springer at bedside assisting with obtaining history of present illness. Patient states for the last 24 hours she's been having nausea vomiting diarrhea and abdominal pain. States that his left lower quadrant hurts. having multiple episodes of nonbilious nonbloody emesis. Denies any constitutional symptoms. He has been having diarrhea as well. States that his appetite is poor. Denies any overt sick contacts. Does have mild runny nose however no sore throat. He denies any history of diverticulitis or abdominal infections. The ROS documented in this emergency department record has been reviewed and confirmed by me. Those systems with pertinent positive or negative responses have been documented in the HPI. All other systems are other negative and/or noncontributory. PHYSICAL EXAM: General Impression: not in acute distress HEENT: Normocephalic atraumatic, extra-ocular movements intact, pupils equal and reactive to light bilaterally, mucous membranes moist. Cardiovascular: Heart regular rate and rhythm, S1&S2 audible, no murmurs, rubs or gallops Chest: Lungs clear to auscultation bilaterally, no rhonchi, no wheeze, no rales Abdomen: Pain to palpation of the left lower quadrant Musculoskeletal: Pulses present and equal in all extremities, no peripheral edema Motor: no focal deficits noted Neurological: CN II-XII grossly intact, no focal motor or sensory deficits noted Skin: Intact with no visualized rashes Psych: Normal affect and mood ED course: 69-year-old male presents with nausea vomiting diarrhea and abdominal pain. Vital signs upon arrival are within acceptable limits. A evaluation obtained. Mild leukocytosis. Coag panel unremarkable. Metabolic panel is grossly unremarkable. There is some degree of dehydration. Influenza test is negative. Given that patient had some left lower quadrant abdominal tenderness CT abdomen was obtained to rule out diverticulitis. There does not appear to be any signs of diverticulitis or any other graphics signs to suggest surgical abdomen. Patient's clinical presentation likely secondary to gastroenteritis. He is told to maintain adequate hydration to follow-up with his primary care physician regarding his symptoms. Return Prevacid discussed. Patient will be discharged. - Related Data Home Medications Medication Instructions Recorded Confirmed Atorvastatin [Lipitor] 10 mg PO DAILY 11/27/15 08/27/19 Carvedilol [Coreg] 12.5 mg PO BID 01/30/17 08/27/19 Amiodarone [Cordarone] 100 mg PO DAILY 05/12/18 08/27/19 Apixaban [Eliquis] 5 mg PO BID 05/12/18 08/27/19 Baclofen [Lioresal] 10 mg PO TID 05/12/18 08/27/19 Ferrous Sulfate [Feosol] 325 mg PO DAILY 05/12/18 08/27/19 Furosemide [Lasix] 20 mg PO DAILY 05/12/18 08/27/19 Levothyroxine Sodium [Synthroid] 112 mcg PO DAILY 05/12/18 08/27/19 Lisinopril [Prinivil] 5 mg PO DAILY 05/12/18 08/27/19 Pantoprazole Sodium [Protonix] 40 mg PO DAILY 05/12/18 08/27/19 Potassium Chloride ER [K-Dur 10] 10 meq PO DAILY 05/12/18 08/27/19 Gabapentin 800 mg PO BID 09/09/18 08/27/19 Insulin Aspart [NovoLOG] 5 unit SQ AC-TID 09/09/18 08/27/19 Montelukast [Singulair] 10 mg PO HS 09/09/18 08/27/19 Carboxymethylcellulos/Glycerin 1 drop BOTH EYES TID PRN 09/22/18 08/27/19 [Refresh Repair 0.5-0.9% Drop] Insulin Detemir [Levemir Flextouch] 15 units SQ BID 09/22/18 08/27/19 metFORMIN HCL [Glucophage] 500 mg PO BID 09/22/18 08/27/19 Albuterol Sulfate [Ventolin HFA] 1 - 2 puff INHALATION RT-Q6H PRN 08/27/19 08/27/19 Aspirin 81 mg PO DAILY 08/27/19 08/27/19 Fexofenadine HCl [Sravanthi Allergy] 180 mg PO DAILY 08/27/19 08/27/19 Finasteride [Proscar] 5 mg PO DAILY 08/27/19 08/27/19 Fluticasone Nasal Purchase [Flonase 2 spray EA NOSTRIL DAILY 08/27/19 08/27/19 Nasal Purchase] Nitroglycerin Sl Tabs [Nitrostat] 0.4 mg SUBLINGUAL Q5M PRN 08/27/19 08/27/19 Polyethylene Glycol 3350 [Miralax] 17 gm PO DAILY 08/27/19 08/27/19 Sertraline [Zoloft] 100 mg PO DAILY 08/27/19 08/27/19 Tamsulosin [Flomax] 0.4 mg PO DAILY 08/27/19 08/27/19 Allergies Allergy/AdvReac Type Severity Reaction Status Date / Time No Known Allergies Allergy Verified 08/27/19 19:01 Review of Systems ROS Statement: Those systems with pertinent positive or pertinent negative responses have been documented in the HPI. ROS Other: All systems not noted in ROS Statement are negative. Past Medical History Past Medical History: Atrial Fibrillation, Coronary Artery Disease (CAD), Diabetes Mellitus, Hearing Disorder / Deafness, Hyperlipidemia, Hypertension, Myocardial Infarction (CT), Skin Disorder, Sleep Apnea/CPAP/BIPAP Additional Past Medical History / Comment(s): Pt is deaf, IDDM type II, bilateral hands/arms and leg/feet neuropathy, JAMEY with no current CPAP use, psoriasis, constipation, pt needs oral surgery. paroxsymal afib. Pt is a Jehovah Witness and is not to receive blood. Last Myocardial Infarction Date:: 2008 History of Any Multi-Drug Resistant Organisms: None Reported Past Surgical History: Heart Catheterization With Stent Additional Past Surgical History / Comment(s): One cardiac stent placed approx 2008 at [facility], Past Anesthesia/Blood Transfusion Reactions: No Reported Reaction Additional Past Anesthesia/Blood Transfusion Reaction / Comment(s): DOES NOT RECIEVE BLOOD TRANSFUSIONS Date of Last Stent Placement:: 2008 Past Psychological History: Depression Smoking Status: Former smoker Past Alcohol Use History: None Reported Past Drug Use History: None Reported - Past Family History Father History Unknown: Yes Additional Family Medical History / Comment(s): FOSTER CHILD, NO CONTACT WITH BIOLOGICAL FAMILY SINCE AGE 2. Mother History Unknown: Yes Family Medical History: No Reported History General Exam Limitations: language barrier Course Vital Signs 08/27/19 18:54 Temperature 98 F Pulse Rate 78 Respiratory 16 Rate Blood Pressure 152/77 O2 Sat by Pulse 95 Oximetry Medical Decision Making - Lab Data Result diagrams: 08/27/19 19:45 08/27/19 19:45 Lab Results 08/27/19 08/27/19 08/27/19 Range/Units 19:45 19:45 19:45 WBC 11.8 H (3.8-10.6) k/uL RBC 3.91 L (4.30-5.90) m/uL Hgb 11.4 L (13.0-17.5) gm/dL Hct 37.4 L (39.0-53.0) % MCV 95.8 (80.0-100.0) fL MCH 29.1 (25.0-35.0) pg MCHC 30.4 L (31.0-37.0) g/dL RDW 15.0 (11.5-15.5) % Plt Count 220 (150-450) k/uL Neutrophils % 91 % Lymphocytes % 0 % Monocytes % 4 % Eosinophils % 2 % Basophils % 3 % Neutrophils # 10.7 H (1.3-7.7) k/uL Lymphocytes # 0.0 L (1.0-4.8) k/uL Monocytes # 0.4 (0-1.0) k/uL Eosinophils # 0.2 (0-0.7) k/uL Basophils # 0.3 H (0-0.2) k/uL Hypochromasia Moderate PT (9.0-12.0) sec INR (<1.2) APTT (22.0-30.0) sec Sodium 136 L (137-145) mmol/L Potassium 4.9 (3.5-5.1) mmol/L Chloride 97 L (98-107) mmol/L Carbon Dioxide 34 H (22-30) mmol/L Anion Gap 5 mmol/L BUN 23 H (9-20) mg/dL Creatinine 1.12 (0.66-1.25) mg/dL Est GFR (CKD-EPI)AfAm 77 (>60 ml/min/1.73 sqM) Est GFR (CKD-EPI)NonAf 66 (>60 ml/min/1.73 sqM) Glucose 236 H (74-99) mg/dL Plasma Lactic Acid Don 1.6 (0.7-2.0) mmol/L Calcium 8.7 (8.4-10.2) mg/dL Total Bilirubin 1.0 (0.2-1.3) mg/dL AST 35 (17-59) U/L ALT 33 (4-49) U/L Alkaline Phosphatase 83 (38-126) U/L Total Protein 7.1 (6.3-8.2) g/dL Albumin 4.1 (3.5-5.0) g/dL Lipase 71 (23-300) U/L Influenza Type A RNA (Not Detectd) Influenza Type B (PCR) (Not Detectd) 08/27/19 08/27/19 Range/Units 19:45 19:45 WBC (3.8-10.6) k/uL RBC (4.30-5.90) m/uL Hgb (13.0-17.5) gm/dL Hct (39.0-53.0) % MCV (80.0-100.0) fL MCH (25.0-35.0) pg MCHC (31.0-37.0) g/dL RDW (11.5-15.5) % Plt Count (150-450) k/uL Neutrophils % % Lymphocytes % % Monocytes % % Eosinophils % % Basophils % % Neutrophils # (1.3-7.7) k/uL Lymphocytes # (1.0-4.8) k/uL Monocytes # (0-1.0) k/uL Eosinophils # (0-0.7) k/uL Basophils # (0-0.2) k/uL Hypochromasia PT 10.0 (9.0-12.0) sec INR 1.0 (<1.2) APTT 23.8 (22.0-30.0) sec Sodium (137-145) mmol/L Potassium (3.5-5.1) mmol/L Chloride (98-107) mmol/L Carbon Dioxide (22-30) mmol/L Anion Gap mmol/L BUN (9-20) mg/dL Creatinine (0.66-1.25) mg/dL Est GFR (CKD-EPI)AfAm (>60 ml/min/1.73 sqM) Est GFR (CKD-EPI)NonAf (>60 ml/min/1.73 sqM) Glucose (74-99) mg/dL Plasma Lactic Acid Don (0.7-2.0) mmol/L Calcium (8.4-10.2) mg/dL Total Bilirubin (0.2-1.3) mg/dL AST (17-59) U/L ALT (4-49) U/L Alkaline Phosphatase (38-126) U/L Total Protein (6.3-8.2) g/dL Albumin (3.5-5.0) g/dL Lipase (23-300) U/L Influenza Type A RNA Not Detected (Not Detectd) Influenza Type B (PCR) Not Detected (Not Detectd) Disposition Clinical Impression: Gastroenteritis Disposition: HOME SELF-CARE Condition: Good Instructions (If sedation given, give patient instructions): Acute Diarrhea (ED), Abdominal Pain (ED) Additional Instructions: You were evaluated for gastroenteritis. He did have mild elevated white blood cell count of 11.8. This should be followed up with her primary care doc tor.Your CT showed evidence of diarrhea. There was incidental finding of delayed contrast in the renal pelvis on delayed images suggestive of some degree of renal failure. You are checked to follow-up with her primary care physician regarding this. Is patient prescribed a controlled substance at d/c from ED?: No Referrals: Sherron Anderson MD [Primary Care Provider] - 1-2 days Time of Disposition: 21:18
[2019-08-27 20:02] LABS: Basophils # (A) 0.3 k/uL (0-0.2); Basophils % (A) 3 %; Eosinophils # (A) 0.2 k/uL (0-0.7); Eosinophils % (A) 2 %; HCT 37.4 % (39.0-53.0); HGB 11.4 gm/dL (13.0-17.5); Hypochromasia Moderate; Lymphocytes % (A) 0 %; MCH 29.1 pg (25.0-35.0); MCHC 30.4 g/dL (31.0-37.0); MCV 95.8 fL (80.0-100.0); Mean Platelet Volume 7.8; Monocytes # (A) 0.4 k/uL (0-1.0); Monocytes % (A) 4 %; Neutrophils # (A) 10.7 k/uL (1.3-7.7); Neutrophils % (A) 91 %; Platelet Count 220 k/uL (150-450); RBC 3.91 m/uL (4.30-5.90); WBC 11.8 k/uL (3.8-10.6)
[2019-08-27 20:12] LABS: Albumin 4.1 g/dL (3.5-5.0); Calcium 8.7 mg/dL (8.4-10.2); Potassium 4.9 mmol/L (3.5-5.1); Total Protein 7.1 g/dL (6.3-8.2)
[2019-08-27 20:15] LABS: Partial Thromboplastin Time 23.8 sec (22.0-30.0)
--- NOTE | 2019-08-27 20:58 | CT ---
EXAMINATION TYPE: CT abdomen pelvis w con DATE OF EXAM: 08/27/2019 COMPARISON: 09/22/2018 HISTORY: Left lower quadrant abdominal pain, nausea, vomiting and diarrhea. CT DLP: 2524.7 mGycm Automated exposure control for dose reduction was used. CONTRAST: Performed with IV Contrast, patient injected with 100ml mL of Isovue 300. Multiple axial sections were obtained from the diaphragm to the floor the pelvis with intravenous con trast. There is some patchy atelectasis at the lung bases. Heart is enlarged. There is no pericardial effusi on. There is no pleural effusion. Gallbladder is absent. There are small cysts in the liver. Spleen a ppears normal. There is no evidence of pancreatic mass. The stomach is intact. There is no adrenal mass. Kidneys show satisfactory contrast opacification. There is no hydronephrosi s. Ureters are not dilated. There is no significant contrast in the renal collecting system on the de layed images. There is no retroperitoneal adenopathy. Bladder distends smoothly. There is no inguinal hernia. There is no free fluid in the pelvis. Appendi x appears normal. There is no mesenteric edema. There is no ascites or free air. There is no evidence of a bowel obstru ction. There is fluid in the large bowel down to the rectum. Lumbar vertebra have normal alignment. There is no compression fracture. I see no focal bone destruct ion. Hip joints appear intact. IMPRESSION: There is bilateral basilar pulmonary linear infiltrates and atelectasis unchanged. Mild cardiomegaly unchanged. Large bowel fluid consistent with diarrhea that is a change compared to old exam. Decreased contrast in the renal pelvis on delayed images suggestive of some degree of renal failure.
[2019-08-27] MEDS ORDERED: ONDANSETRON 4 MG ODT STARTER PACK 2 TAB BTL PO STA (21:18)
== END 2019-08-27 21:44 | disposition home or self-care (01) ==
LOC: EC 18:48
DX: K52.9 Noninfective gastroenteritis and colitis, unspecified (principal); I48.0 Paroxysmal atrial fibrillation; I25.10 Atherosclerotic heart disease of native coronary artery without angina pectoris; E11.40 Type 2 diabetes mellitus with diabetic neuropathy, unspecified; E78.5 Hyperlipidemia, unspecified; I10 Essential (primary) hypertension; I25.2 Old myocardial infarction; K59.00 Constipation, unspecified; F32.9 Major depressive disorder, single episode, unspecified; G47.33 Obstructive sleep apnea (adult) (pediatric); Z99.89 Dependence on other enabling machines and devices; Z95.5 Presence of coronary angioplasty implant and graft; Z87.891 Personal history of nicotine dependence; Z79.01 Long term (current) use of anticoagulants; Z79.890 Hormone replacement therapy; Z79.4 Long term (current) use of insulin; Z79.899 Other long term (current) drug therapy; Z79.82 Long term (current) use of aspirin
CPT/HCPCS: 36415; 80053; 83605; 83690; 85025; 85610; 85730; 87502; 74177; 99284; 96374; 96375; J2270; J2405; S0119; Q9967

== ENCOUNTER 2019-11-19 14:23 | Inpatient (IN) | payer MEDICARE, OTHER ==
[2019-11-19 16:23] LABS: Basophils # (A) 0.1 k/uL (0-0.2); Basophils % (A) 1 %; Eosinophils # (A) 0.2 k/uL (0-0.7); Eosinophils % (A) 2 %; HGB 10.5 gm/dL (13.0-17.5); Hypochromasia Marked; Lymphocytes # (A) 0.5 k/uL (1.0-4.8); Lymphocytes % (A) 8 %; MCH 31.9 pg (25.0-35.0); MCHC 30.8 g/dL (31.0-37.0); MCV 103.6 fL (80.0-100.0); Macrocytosis Moderate; Mean Platelet Volume 8.4; Monocytes # (A) 0.4 k/uL (0-1.0); Monocytes % (A) 6 %; Neutrophils # (A) 4.8 k/uL (1.3-7.7); Neutrophils % (A) 80 %; Platelet Count 200 k/uL (150-450); RBC 3.28 m/uL (4.30-5.90); RDW 15.8 % (11.5-15.5)
[2019-11-19 16:31] LABS: Albumin 3.9 g/dL (3.5-5.0); C Reactive Protein 34.3 mg/L (<10.0); Calcium 8.3 mg/dL (8.4-10.2); Magnesium 2.2 mg/dL (1.6-2.3); Potassium 5.1 mmol/L (3.5-5.1); Total Bilirubin 1.8 mg/dL (0.2-1.3); Total Protein 6.8 g/dL (6.3-8.2)
[2019-11-19 16:41] LABS: D-Dimer 0.36 mg/L FEU (<0.60); Partial Thromboplastin Time 27.2 sec (22.0-30.0); Prothrombin Time 10.6 sec (9.0-12.0)
--- NOTE | 2019-11-19 16:49 | ED ---
General Adult HPI - General Chief complaint: Dizziness Stated complaint: YONI/A-fib Time Seen by Provider: 11/19/19 14:30 Source: EMS Mode of arrival: EMS Limitations: language barrier - History of Present Illness Initial comments: The patient is a 69-year-old male with multiple comorbid medical conditions who presents to the emergency department with multiple complaints. He reports to exertional shortness of breath and presyncope. States he's felt lightheaded and has multiple episodes in the past couple of days where he felt like he was given a pass out. Denies completely losing consciousness. No trauma from episodes. He denied have any chest pain prior to the incident but did feel diaphoretic. He reports to chronic neck and back pain. Reports the neck pain has been present for 2 months and low back pain has been present present for 6 months. He also reports to lower extremity edema for which the right is worse than the left. The patient does have an abrasion to the left valiente. He denies a history of DVT or PE. The patient is on anticoagulation for his A. fib and denies missing any doses. The patient does wear 2-3 L of oxygen at home. Feels as if his needs have been getting worsens. Review patient's records does demonstrate history of similar presentations in the past. The patient denies any sick contacts. The remainder of HPI is limited because the patient's hearing impairment - Related Data Home Medications Medication Instructions Recorded Confirmed Atorvastatin [Lipitor] 10 mg PO DAILY 11/27/15 11/19/19 Carvedilol [Coreg] 12.5 mg PO BID 01/30/17 11/19/19 Amiodarone [Cordarone] 100 mg PO DAILY 05/12/18 11/19/19 Apixaban [Eliquis] 5 mg PO BID 05/12/18 11/19/19 Ferrous Sulfate [Feosol] 325 mg PO BID 05/12/18 11/19/19 Levothyroxine Sodium [Synthroid] 112 mcg PO DAILY 05/12/18 11/19/19 Lisinopril [Prinivil] 5 mg PO DAILY 05/12/18 11/19/19 Pantoprazole Sodium [Protonix] 40 mg PO DAILY 05/12/18 11/19/19 Potassium Chloride ER [K-Dur 10] 10 meq PO DAILY 05/12/18 11/19/19 Gabapentin 800 mg PO BID 09/09/18 11/19/19 Insulin Aspart [NovoLOG] 5 unit SQ AC-TID 09/09/18 11/20/19 Montelukast [Singulair] 10 mg PO HS 09/09/18 11/19/19 Carboxymethylcellulos/Glycerin 1 drop BOTH EYES TID PRN 09/22/18 11/19/19 [Refresh Repair 0.5-0.9% Drop] Insulin Detemir [Levemir Flextouch] 15 units SQ BID 09/22/18 11/20/19 metFORMIN HCL [Glucophage] 500 mg PO BID 09/22/18 11/19/19 Albuterol Sulfate [Ventolin HFA] 1 - 2 puff INHALATION RT-Q6H PRN 08/27/1912/03 Aspirin 81 mg PO DAILY 08/27/19 11/19/19 Finasteride [Proscar] 5 mg PO DAILY 08/27/19 11/19/19 Sertraline [Zoloft] 100 mg PO DAILY 08/27/19 11/19/19 Tamsulosin [Flomax] 0.4 mg PO DAILY 08/27/19 11/19/19 Furosemide [Lasix] 40 mg PO BID 11/19/19 11/19/19 busPIRone HCL 10 mg PO TID 11/19/19 11/19/19 Previous Rx's Medication Instructions Recorded Clindamycin HCl [Cleocin] 300 mg PO Q8H #9 cap 11/22/19 Midodrine [ProAmatine] 2.5 mg PO AC-TID #90 tab 11/22/19 Allergies Allergy/AdvReac Type Severity Reaction Status Date / Time No Known Allergies Allergy Verified 11/19/19 21:49 Review of Systems ROS Statement: Those systems with pertinent positive or pertinent negative responses have been documented in the HPI. ROS Other: All systems not noted in ROS Statement are negative. Past Medical History Past Medical History: Atrial Fibrillation, Coronary Artery Disease (CAD), Diabetes Mellitus, Hearing Disorder / Deafness, Hyperlipidemia, Hypertension, Myocardial Infarction ([place]), Skin Disorder, Sleep Apnea/CPAP/BIPAP Additional Past Medical History / Comment(s): Pt is deaf, IDDM type II, bilateral hands/arms and leg/feet neuropathy, JAMEY with no current CPAP use, psoriasis, constipation, pt needs oral surgery. paroxsymal afib. Pt is a Jehovah Witness and is not to receive blood. Last Myocardial Infarction Date:: 2008 History of Any Multi-Drug Resistant Organisms: None Reported Past Surgical History: Heart Catheterization With Stent Additional Past Surgical History / Comment(s): One cardiac stent placed approx 2008 at [facility], Past Anesthesia/Blood Transfusion Reactions: No Reported Reaction Additional Past Anesthesia/Blood Transfusion Reaction / Comment(s): DOES NOT RECIEVE BLOOD TRANSFUSIONS Date of Last Stent Placement:: 2008 Past Psychological History: Depression Smoking Status: Former smoker Past Alcohol Use History: None Reported Past Drug Use History: None Reported - Past Family History Father History Unknown: Yes Additional Family Medical History / Comment(s): FOSTER CHILD, NO CONTACT WITH BIOLOGICAL FAMILY SINCE AGE 1. Mother History Unknown: Yes Family Medical History: No Reported History General Exam Limitations: language barrier General appearance: alert, in no apparent distress Head exam: Present: atraumatic, normocephalic, normal inspection Eye exam: Present: normal appearance, PERRL, EOMI. Absent: scleral icterus, conjunctival injection, periorbital swelling ENT exam: Present: normal exam, mucous membranes moist Neck exam: Present: normal inspection. Absent: tenderness, meningismus, lymphadenopathy Respiratory exam: Present: normal lung sounds bilaterally. Absent: respiratory distress, wheezes, rales, rhonchi, stridor Cardiovascular Exam: Present: regular rate, normal rhythm, normal heart sounds. Absent: systolic murmur, diastolic murmur, rubs, gallop, clicks GI/Abdominal exam: Present: soft, normal bowel sounds. Absent: distended, tenderness, guarding, rebound, rigid Extremities exam: Present: full ROM, normal capillary refill, pedal edema. Absent: tenderness, joint swelling, calf tenderness Back exam: Present: normal inspection Neurological exam: Present: alert, oriented X3, CN II-XII intact Psychiatric exam: Present: normal affect, normal mood Skin exam: Present: warm, dry, other (erythema right valiente with a central well- healed scab. ). Absent: rash Course Vital Signs 11/19/19 11/19/19 11/19/19 14:26 16:01 17:52 Temperature 98.4 F Pulse Rate 75 75 77 Respiratory 18 18 18 Rate Blood Pressure 109/72 130/72 129/72 O2 Sat by Pulse 90 L 90 L 95 Oximetry 11/19/19 11/19/19 18:50 20:25 Temperature 98.1 F Pulse Rate 73 79 Respiratory 18 18 Rate Blood Pressure 110/85 145/77 O2 Sat by Pulse 99 94 L Oximetry EKG Findings - EKG Comments: EKG Findings:: EKG demonstrates A. fib with a ventricular rate of 65. QRS 116. QTC of 428. Incomplete right bundle-branch block. No acute ST segment elevations or depressions. EKG compared to previous EKG and appears the same Medical Decision Making - Medical Decision Making Upon arrival the patient is placed into room 10. A thorough history and physical exam was performed. We did use the virtual educational interpreter. I did recommend laboratory studies and a chest x-ray. Lab studies are markable for hemoglobin of 10.5. Sodium 135. Glucose 153. BNP elevated at 2900. Troponin is negative. Rotavirus undetected. Chest x-ray was performed which does demonstrate correlate for CHF exacerbation. Mild central vascular congestion. The patient does take 40 mg of Lasix twice daily. I did provide the patient with 1 dose of 60 mg of IV. He is negative for DVT in the patient's right lower extremity. I did obtain blood cultures and initiated the patient on Unasyn for that his cellulitis. I did call discuss the case with Dr. Mora who accepted admission for the patient. Patient was transferred to the floor in stable condition - Lab Data Result diagrams: 11/22/19 05:43 11/22/19 05:43 Lab Results 11/19/19 11/19/19 11/19/19 Range/Units 14:55 14:55 14:55 WBC 6.0 (3.8-10.6) k/uL RBC 3.28 L (4.30-5.90) m/uL Hgb 10.5 L (13.0-17.5) gm/dL Hct 34.0 L (39.0-53.0) % MCV 103.6 H (80.0-100.0) fL MCH 31.9 (25.0-35.0) pg MCHC 30.8 L (31.0-37.0) g/dL RDW 15.8 H (11.5-15.5) % Plt Count 200 (150-450) k/uL Neutrophils % 80 % Lymphocytes % 8 % Monocytes % 6 % Eosinophils % 2 % Basophils % 1 % Neutrophils # 4.8 (1.3-7.7) k/uL Lymphocytes # 0.5 L (1.0-4.8) k/uL Monocytes # 0.4 (0-1.0) k/uL Eosinophils # 0.2 (0-0.7) k/uL Basophils # 0.1 (0-0.2) k/uL Hypochromasia Marked Macrocytosis Moderate PT 10.6 (9.0-12.0) sec INR 1.0 (<1.2) APTT 27.2 (22.0-30.0) sec D-Dimer 0.36 (<0.60) mg/L FEU Sodium 135 L (137-145) mmol/L Potassium 5.1 (3.5-5.1) mmol/L Chloride 95 L (98-107) mmol/L Carbon Dioxide 34 H (22-30) mmol/L Anion Gap 6 mmol/L BUN 17 (9-20) mg/dL Creatinine 1.03 (0.66-1.25) mg/dL Est GFR (CKD-EPI)AfAm 85 (>60 ml/min/1.73 sqM) Est GFR (CKD-EPI)NonAf 74 (>60 ml/min/1.73 sqM) Glucose 153 H (74-99) mg/dL Plasma Lactic Acid Don (0.7-2.0) mmol/L Calcium 8.3 L (8.4-10.2) mg/dL Magnesium 2.2 (1.6-2.3) mg/dL Total Bilirubin 1.8 H (0.2-1.3) mg/dL AST 31 (17-59) U/L ALT 25 (4-49) U/L Alkaline Phosphatase 65 (38-126) U/L Creatine Kinase 100 (55-170) U/L Troponin I (0.000-0.034) ng/mL C-Reactive Protein 34.3 H (<10.0) mg/L NT-Pro-B Natriuret Pep pg/mL Total Protein 6.8 (6.3-8.2) g/dL Albumin 3.9 (3.5-5.0) g/dL Coronavirus (PCR) (Not Detectd) 11/19/19 11/19/19 11/19/19 Range/Units 14:55 14:55 14:55 WBC (3.8-10.6) k/uL RBC (4.30-5.90) m/uL Hgb (13.0-17.5) gm/dL Hct (39.0-53.0) % MCV (80.0-100.0) fL MCH (25.0-35.0) pg MCHC (31.0-37.0) g/dL RDW (11.5-15.5) % Plt Count (150-450) k/uL Neutrophils % % Lymphocytes % % Monocytes % % Eosinophils % % Basophils % % Neutrophils # (1.3-7.7) k/uL Lymphocytes # (1.0-4.8) k/uL Monocytes # (0-1.0) k/uL Eosinophils # (0-0.7) k/uL Basophils # (0-0.2) k/uL Hypochromasia Macrocytosis PT (9.0-12.0) sec INR (<1.2) APTT (22.0-30.0) sec D-Dimer (<0.60) mg/L FEU Sodium (137-145) mmol/L Potassium (3.5-5.1) mmol/L Chloride (98-107) mmol/L Carbon Dioxide (22-30) mmol/L Anion Gap mmol/L BUN (9-20) mg/dL Creatinine (0.66-1.25) mg/dL Est GFR (CKD-EPI)AfAm (>60 ml/min/1.73 sqM) Est GFR (CKD-EPI)NonAf (>60 ml/min/1.73 sqM) Glucose (74-99) mg/dL Plasma Lactic Acid Don 1.0 (0.7-2.0) mmol/L Calcium (8.4-10.2) mg/dL Magnesium (1.6-2.3) mg/dL Total Bilirubin (0.2-1.3) mg/dL AST (17-59) U/L ALT (4-49) U/L Alkaline Phosphatase (38-126) U/L Creatine Kinase (55-170) U/L Troponin I <0.012 (0.000-0.034) ng/mL C-Reactive Protein (<10.0) mg/L NT-Pro-B Natriuret Pep 2900 pg/mL Total Protein (6.3-8.2) g/dL Albumin (3.5-5.0) g/dL Coronavirus (PCR) (Not Detectd) 11/19/19 Range/Units 16:01 WBC (3.8-10.6) k/uL RBC (4.30-5.90) m/uL Hgb (13.0-17.5) gm/dL Hct (39.0-53.0) % MCV (80.0-100.0) fL MCH (25.0-35.0) pg MCHC (31.0-37.0) g/dL RDW (11.5-15.5) % Plt Count (150-450) k/uL Neutrophils % % Lymphocytes % % Monocytes % % Eosinophils % % Basophils % % Neutrophils # (1.3-7.7) k/uL Lymphocytes # (1.0-4.8) k/uL Monocytes # (0-1.0) k/uL Eosinophils # (0-0.7) k/uL Basophils # (0-0.2) k/uL Hypochromasia Macrocytosis PT (9.0-12.0) sec INR (<1.2) APTT (22.0-30.0) sec D-Dimer (<0.60) mg/L FEU Sodium (137-145) mmol/L Potassium (3.5-5.1) mmol/L Chloride (98-107) mmol/L Carbon Dioxide (22-30) mmol/L Anion Gap mmol/L BUN (9-20) mg/dL Creatinine (0.66-1.25) mg/dL Est GFR (CKD-EPI)AfAm (>60 ml/min/1.73 sqM) Est GFR (CKD-EPI)NonAf (>60 ml/min/1.73 sqM) Glucose (74-99) mg/dL Plasma Lactic Acid Odn (0.7-2.0) mmol/L Calcium (8.4-10.2) mg/dL Magnesium (1.6-2.3) mg/dL Total Bilirubin (0.2-1.3) mg/dL AST (17-59) U/L ALT (4-49) U/L Alkaline Phosphatase (38-126) U/L Creatine Kinase (55-170) U/L Troponin I (0.000-0.034) ng/mL C-Reactive Protein (<10.0) mg/L NT-Pro-B Natriuret Pep pg/mL Total Protein (6.3-8.2) g/dL Albumin (3.5-5.0) g/dL Coronavirus (PCR) Not Detected (Not Detectd) Disposition Clinical Impression: Afib, Respiratory insufficiency, CHF exacerbation, Cellulitis of right lower extremity Disposition: ADMITTED IP TO THIS HOSP Condition: Fair Is patient prescribed a controlled substance at d/c from ED?: No Decision to Admit Reason: Admit from EC Decision Date: 11/19/19 Decision Time: 19:04
--- NOTE | 2019-11-19 16:54 | XR ---
EXAMINATION TYPE: XR chest 2V DATE OF EXAM: 11/19/2019 COMPARISON: Chest x-ray July 29, 2019. HISTORY: Syncope and weakness. TECHNIQUE: Frontal and lateral views of the chest are obtained. FINDINGS: Low lung volumes and overlying sternal wires redemonstrated. Persistent cardiomegaly with n ew mild central vascular congestion but present. There is some suspicious peripheral focal airspace o pacities bilaterally. No pleural effusion or pneumothorax seen bilaterally . The osseous structures are intact. IMPRESSION: Correlate for CHF exacerbation as there is redemonstration of cardiomegaly with perhaps new mild central vascular congestion. Possible developing peripheral acute infiltrates bilaterally. C orrelate clinically.
--- NOTE | 2019-11-19 18:21 | US ---
EXAMINATION TYPE: US venous doppler duplex LE RT DATE OF EXAM: 11/19/2019 6:13 PM COMPARISON: US LLE V 2018 CLINICAL HISTORY: right leg swelling. Right leg swelling x 2 weeks. Edema, erythema. Hx AFib. No hx o f DVT. Patient takes blood thinners. SIDE PERFORMED: Right TECHNIQUE: The lower extremity deep venous system is examined utilizing real time linear array sonog jemal with graded compression, doppler sonography and color-flow sonography. VESSELS IMAGED: External Iliac Vein (EIV) Common Femoral Vein Deep Femoral Vein Greater Saphenous Vein * Femoral Vein Popliteal Vein Small Saphenous Vein * Proximal Calf Veins (* superficial vessels) Right Leg: No evidence of DVT in veins imaged at this time from prox calf veins to EIV. Slightly vitale ited visibility and evaluation of EIV and prox calf veins. Edema present. IMPRESSION: Suboptimal study due to body habitus. No convincing evidence for acute CT in the right l ower extremity. [id number] subcutaneous edema right calf level noted towards end of study.
[2019-11-19] MEDS ORDERED: AMPICILLIN-SULBACTAM 3 GM in SODIUM CHLORIDE 0.9% 100 ML IVPB STA (18:54)
[2019-11-19] MEDS ORDERED: FUROSEMIDE 10 MG/ML 10 ML VIAL IV STA (19:01)
[2019-11-19] MEDS ORDERED: NALOXONE 0.4 MG/ML 1 ML VIAL IV PRN (19:04)
--- NOTE | 2019-11-19 22:08 | P.HPIM ---
History of Present Illness H&P Date: 11/19/19 Patient is a 69-year-old male with a PMH of deafness, persistent A. fib (on Eliquis), chronic hypoxic respiratory failure (on 2-3 L nasal cannula oxygen at home), CAD status post CABG in 2017, type II DM, hypertension, hyperlipemia, JAMEY (not compliant with CPAP), presented to the ED with complaints of shortness breath and episode of near syncope. History was obtained using director design at the bedside. The patient reports that he has been having gradually worsening exertional dyspnea, ongoing for the past 1 week. Reports that he finds it difficult to breathe and has a substernal chest pressure during exertion, along with some diaphoresis. He denied dyspnea or chest discomfort at rest. He also reports that 2 days ago, he was walking in his apartment when he developed an acute onset of worsening dyspnea and chest discomfort, and felt as though he was going to faint, had to hold onto a nearby chair and eased himself to the ground. The patient denied loss of consciousness, fall. He endorsed diaphoresis though denied shaking movements, tongue biting, bowel or bladder in continence. He is able to recall the entire episode. He further denied palpitations preceding the episode. He notes that his symptoms of lightheadedness lasted roughly 10-20 seconds and subsequently resolved. He also reports feeling lightheaded whenever he is down to pick something off the groun d. The patient also reported gradually worsening bilateral lower extremity edema, worse on the R with area of redness overlying the right leg, with some pain. He reported compliance with all of his home medications. At time of the interview, he denied chest discomfort, shortness of breath, nausea, vomiting, fever, chills, coughing, dizziness, or headaches. He underwent an extensive evaluation in the emergency room with EKG showing A. fib at 65 bpm with an incomplete right bundle branch block. Chest x-ray revealed cardiomegaly with fluid overload with lower extremity duplex showing no acute DVT on the right with subcutaneous edema noted. Laboratory evaluation revealed a WBC count of 6, hemoglobin 10.5, platelets 200, d-dimer 0.36, coronavirus negative, BNP 2900, troponin less than 0.012, sodium 135, potassium 5.1, chloride 95, CO2 34, BUN 17, creatinine 1.03, and glucose 153. Review of Systems Pertinent positives and negatives as discussed in HPI, a complete review of systems was performed and all other systems are negative. Past Medical History Past Medical History: Atrial Fibrillation, Coronary Artery Disease (CAD), Diabetes Mellitus, Hearing Disorder / Deafness, Hyperlipidemia, Hypertension, Myocardial Infarction ([place]), Skin Disorder, Sleep Apnea/CPAP/BIPAP Additional Past Medical History / Comment(s): Pt is deaf, IDDM type II, bilateral hands/arms and leg/feet neuropathy, JAMEY with no current CPAP use, psoriasis, constipation, pt needs oral surgery. paroxsymal afib. Pt is a Jehovah Witness and is not to receive blood. Last Myocardial Infarction Date:: 2008 History of Any Multi-Drug Resistant Organisms: None Reported Past Surgical History: Heart Catheterization With Stent Additional Past Surgical History / Comment(s): One cardiac stent placed approx 2008 at [facility], Past Anesthesia/Blood Transfusion Reactions: No Reported Reaction Additional Past Anesthesia/Blood Transfusion Reaction / Comment(s): DOES NOT RECIEVE BLOOD TRANSFUSIONS Date of Last Stent Placement:: 2008 Past Psychological History: Depression Smoking Status: Former smoker Past Alcohol Use History: None Reported Past Drug Use History: None Reported - Past Family History Father History Unknown: Yes Additional Family Medical History / Comment(s): FOSTER CHILD, NO CONTACT WITH BIOLOGICAL FAMILY SINCE AGE 2. Mother History Unknown: Yes Family Medical History: No Reported History Medications and Allergies Home Medications Medication Instructions Recorded Confirmed Type Atorvastatin [Lipitor] 10 mg PO DAILY 11/27/15 08/27/19 History Carvedilol [Coreg] 12.5 mg PO BID 01/30/17 08/27/19 History Amiodarone [Cordarone] 100 mg PO DAILY 05/12/18 08/27/19 History Apixaban [Eliquis] 5 mg PO BID 05/12/18 08/27/19 History Baclofen [Lioresal] 10 mg PO TID 05/12/18 08/27/19 History Ferrous Sulfate [Feosol] 325 mg PO DAILY 05/12/18 08/27/19 History Furosemide [Lasix] 20 mg PO DAILY 05/12/18 08/27/19 History Levothyroxine Sodium [Synthroid] 112 mcg PO DAILY 05/12/18 08/27/19 History Lisinopril [Prinivil] 5 mg PO DAILY 05/12/18 08/27/19 History Pantoprazole Sodium [Protonix] 40 mg PO DAILY 05/12/18 08/27/19 History Potassium Chloride ER [K-Dur 10] 10 meq PO DAILY 05/12/18 08/27/19 History Gabapentin 800 mg PO BID 09/09/18 08/27/19 History Insulin Aspart [NovoLOG] 5 unit SQ AC-TID 09/09/18 08/27/19 History Montelukast [Singulair] 10 mg PO HS 09/09/18 08/27/19 History Carboxymethylcellulos/Glycerin 1 drop BOTH EYES TID PRN 09/22/18 08/27/19 History [Refresh Repair 0.5-0.9% Drop] Insulin Detemir [Levemir Flextouch] 15 units SQ BID 09/22/18 08/27/19 History metFORMIN HCL [Glucophage] 500 mg PO BID 09/22/18 08/27/19 History Albuterol Sulfate [Ventolin HFA] 1 - 2 puff INHALATION RT-Q6H PRN 08/27/19 08/27/19 History Aspirin 81 mg PO DAILY 08/27/19 08/27/19 History Fexofenadine HCl [Sravanthi Allergy] 180 mg PO DAILY 08/27/19 08/27/19 History Finasteride [Proscar] 5 mg PO DAILY 08/27/19 08/27/19 History Fluticasone Nasal Clements [Flonase 2 spray EA NOSTRIL DAILY 08/27/19 08/27/19 Hist ory Nasal Clements] Nitroglycerin Sl Tabs [Nitrostat] 0.4 mg SUBLINGUAL Q5M PRN 08/27/19 08/27/19 History Polyethylene Glycol 3350 [Miralax] 17 gm PO DAILY 08/27/19 08/27/19 History Sertraline [Zoloft] 100 mg PO DAILY 08/27/19 08/27/19 History Tamsulosin [Flomax] 0.4 mg PO DAILY 08/27/19 08/27/19 History Allergies Allergy/AdvReac Type Severity Reaction Status Date / Time No Known Allergies Allergy Verified 11/19/19 14:38 Physical Exam Vitals: Vital Signs Temp Pulse Resp BP Pulse Ox 11/19/19 20:25 98.1 F 79 18 145/77 94 L 11/19/19 18:50 73 18 110/85 99 11/19/19 17:52 77 18 129/72 95 11/19/19 16:01 75 18 130/72 90 L 11/19/19 14:26 98.4 F 75 18 109/72 90 L Intake and Output 11/19/19 11/19/19 11/19/19 06:59 14:59 22:59 Other: Weight 113.398 kg General: non toxic, no distress, appears at stated age, obese Derm: Right anterior leg area of erythema and warmth, with tenderness, bilateral lower extremity chronic venous stasis changes Head: atraumatic, normocephalic, symmetric Eyes: EOMI, no lid lag, anicteric sclera, pupils equal round reactive to light ENT: Nose and ears atraumatic, no thrush, no pharyngeal erythema Neck: No thyromegaly, no cervical lymphadenopathy, trachea midline, supple Mouth: no lip lesion, mucus membranes moist Cardiovascular: S1S2 reg, no murmur, positive posterior tibial pulse bilateral, 1+ sawyer LE edema, capillary refill less than 2 seconds Lungs: R sided rales to mid-lung, L basilar rales, no rhonchi, no rales , no accessory muscle use Abdominal: soft, nontender to palpation, no guarding, no appreciable organomegaly, normal bowel sounds Ext: no gross muscle atrophy, muscle strength 4 out of 5 in all 4 extremities grossly, no contractures, Neuro: CN II-XI grossly intact, light touch intact all 4 extremities, finger to nose within normal limits Psych: Alert, oriented, appropriate affect Results CBC & Chem 7: 11/19/19 14:55 11/19/19 14:55 Labs: Abnormal Lab Results - Last 24 Hours (Table) 11/19/19 11/19/19 Range/Units 14:55 14:55 RBC 3.28 L (4.30-5.90) m/uL Hgb 10.5 L (13.0-17.5) gm/dL Hct 34.0 L (39.0-53.0) % MCV 103.6 H (80.0-100.0) fL MCHC 30.8 L (31.0-37.0) g/dL RDW 15.8 H (11.5-15.5) % Lymphocytes # 0.5 L (1.0-4.8) k/uL Sodium 135 L (137-145) mmol/L Chloride 95 L (98-107) mmol/L Carbon Dioxide 34 H (22-30) mmol/L Glucose 153 H (74-99) mg/dL Calcium 8.3 L (8.4-10.2) mg/dL Total Bilirubin 1.8 H (0.2-1.3) mg/dL C-Reactive Protein 34.3 H (<10.0) mg/L Assessment and Plan Plan: Shortness of breath, fluid overload, likely acute CHF exacerbation -Obtain echocardiogram -Cardiology consult -Start Lasix IV -Fluid restriction -Daily weight and monitor intake and output Near syncope, possibly cardiac in nature -Cardiac monitoring -Cardiology consulted -Fall, seizure, aspiration precautions RLE cellulitis -Order Clindamycin Alkalosis, possibly due to chronic diuretic use vs compensatory in setting of poorly controlled JAMEY -Obtain VBG -Monitor BMP Macrocytic anemia -Patient previously had normal hemoglobin in 2019 -Check B12 and folate levels for now Chronic hypoxic respiratory failure, in setting of COPD -Continue with home inhalers -Continue with supplemental oxygen A. fib, persistent -Continue with home Eliquis Type II DM -Levemir 10 units daily at bedtime and aspart 4 units TID-AC (takes 15 U and 5 U TIDAC at home respectively) -Blood glucose monitoring -Sliding scale Chronic conditions: Hypertension, hyperkalemia, CAD -Continue with home meds DVT prophylaxis -Eliquis The patient is admitted with an anticipated more than 2 midnight stay for evaluation of acute COPD exacerbation CODE STATUS: Full Code Discussed with: Patient Anticipated discharge date: 2-[address]: Home A total of 45 minutes was spent on the care of this complex patient more than 50% of the time was spent in counseling and care coordination.
[2019-11-19] MEDS ORDERED: INSULIN DETEMIR (LEVEMIR) 100 UNIT/ML SYR SQ SCH (22:15)
[2019-11-19 22:31] LABS: Glucose,Whole Blood 206 mg/dL (75-99)
[2019-11-20 03:12] LABS: Basophils % (A) 0 %; Eosinophils # (A) 0.1 k/uL (0-0.7); Eosinophils % (A) 2 %; HCT 34.4 % (39.0-53.0); HGB 10.5 gm/dL (13.0-17.5); Hypochromasia Marked; Lymphocytes # (A) 0.7 k/uL (1.0-4.8); Lymphocytes % (A) 12 %; MCH 32.1 pg (25.0-35.0); MCHC 30.6 g/dL (31.0-37.0); MCV 104.8 fL (80.0-100.0); Macrocytosis Moderate; Mean Platelet Volume 9.3; Monocytes # (A) 0.3 k/uL (0-1.0); Monocytes % (A) 6 %; Neutrophils # (A) 4.5 k/uL (1.3-7.7); Neutrophils % (A) 79 %; Platelet Count 201 k/uL (150-450); RBC 3.28 m/uL (4.30-5.90); RDW 15.8 % (11.5-15.5); WBC 5.6 k/uL (3.8-10.6)
[2019-11-20 03:13] LABS: VBG PH 7.4 (7.31-7.41)
[2019-11-20 03:30] LABS: Calcium 8.3 mg/dL (8.4-10.2); Potassium 4.2 mmol/L (3.5-5.1)
[2019-11-20] MEDS ORDERED: ALBUTEROL NEBULIZED 2.5 MG/3 ML INHALATION PRN (04:26)
[2019-11-20] MEDS: LEVOTHYROXINE 112 MCG TAB PO SCH (05:27)
[2019-11-20 07:22] LABS: Glucose,Whole Blood 213 mg/dL (75-99)
[2019-11-20] MEDS: PANTOPRAZOLE 40 MG TABLET PO SCH (07:25)
[2019-11-20] MEDS: INSULIN ASPART (NovoLOG) 100 UNIT/ML VIAL SQ SCH ×4 (07:25→21:15)
[2019-11-20] MEDS: CARVEDILOL 12.5 MG TAB PO SCH ×2 (07:25→17:00)
[2019-11-20] MEDS: AMIODARONE 200 MG TAB PO SCH (08:27)
[2019-11-20] MEDS: SERTRALINE 100 MG TAB PO SCH (08:28)
[2019-11-20] MEDS: CLINDAMYCIN 150 MG CAP PO SCH ×4 (08:28→21:14)
[2019-11-20] MEDS: TAMSULOSIN 0.4 MG CAP.ER.24H PO SCH (08:28)
[2019-11-20] MEDS: BACLOFEN 10 MG TAB PO SCH ×3 (08:28→21:15)
[2019-11-20] MEDS: ASPIRIN 81 MG PO SCH (08:28)
[2019-11-20] MEDS: FINASTERIDE 5 MG TAB PO SCH (08:28)
[2019-11-20] MEDS: ATORVASTATIN 10 MG TAB PO SCH (08:28)
[2019-11-20] MEDS: APIXABAN 5 MG TAB PO SCH ×2 (08:28→21:14)
[2019-11-20] MEDS: LISINOPRIL 5 MG TAB PO SCH (08:28)
[2019-11-20] MEDS ORDERED: FUROSEMIDE 10 MG/ML 4 ML VIAL IV SCH (09:00)
[2019-11-20 10:28] LABS: Folate, Serum 7.9 ng/mL
--- NOTE | 2019-11-20 11:00 | ECHOF ---
Referral Reason:CHF MEASUREMENTS -------- HEIGHT: 175.3 cm WEIGHT: 115.7 kg BP: 146/76 RVIDd: 4.9 cm (< 3.3) IVSd: 1.4 cm (0.6 - 1.1) LVIDd: 4.8 cm (3.9 - 5.3) LVPWd: 1.5 cm (0.6 - 1.1) IVSs: 1.9 cm LVIDs: 2.8 cm LVPWs: 1.8 cm LAESV Index (A-L): 22.95 ml/m Ao Diam: 2.7 cm (2.0 - 3.7) AV Cusp: 1.8 cm (1.5 - 2.6) MV EXCURSION: 21.844 mm (> 18.000) MV EF SLOPE: 63 mm/s (70 - 150) EPSS: 0.3 cm MV E Sergei: 1.48 m/s MV DecT: 201 ms MV A Sergei: 0.61 m/s MV E/A Ratio: 2.41 RAP: 5.00 mmHg RVSP: 31.86 mmHg FINDINGS -------- Atrial fibrillation. This was a technically difficult study with suboptimal apical views. Morbid Obesity The left ventricular size is normal. There is moderate concentric left ventricular hypertrophy. O verall left ventricular systolic function is normal with, an EF between 55 - 60 %. Left ventricular fillimg pressure cannot be estimated due to Atrial fibrillation. The right ventricle is severely enlarged. Normal LA size by volume 22+/-6 ml/m2. The right atrium was not well visualized. Lumason used Interatrial and interventricular septum intact. The aortic valve is trileaflet and appears structurally normal. There is mild aortic valve sclerosi s. There is no evidence of aortic regurgitation. There is no evidence of aortic stenosis. There is trace mitral regurgitation. Mild tricuspid regurgitation present. There is no evidence of pulmonary hypertension. The right v entricular systolic pressure, as measured by Doppler, is 31.86mmHg. There is no pulmonic regurgitation present. The aortic root size is normal. IVC Not well visulized. There is no pericardial effusion. CONCLUSIONS -------- 1. Atrial fibrillation. 2. This was a technically difficult study with suboptimal apical views. 3. Morbid Obesity 4. The left ventricular size is normal. 5. There is moderate concentric left ventricular hypertrophy. 6. Overall left ventricular systolic function is normal with, an EF between 55 - 60 %. 7. Left ventricular fillimg pressure cannot be estimated due to Atrial fibrillation. 8. The right ventricle is severely enlarged. 9. Normal LA size by volume 22+/-6 ml/m2. 10. The right atrium was not well visualized. 11. Lumason used 12. Interatrial and interventricular septum intact. 13. The aortic valve is trileaflet and appears structurally normal. 14. There is mild aortic valve sclerosis. 15. There is no evidence of aortic regurgitation. 16. There is no evidence of aortic stenosis. 17. There is trace mitral regurgitation. 18. Mild tricuspid regurgitation present. 19. There is no evidence of pulmonary hypertension. 20. The right ventricular systolic pressure, as measured by Doppler, is 31.86mmHg. 21. There is no pulmonic regurgitation present. 22. The aortic root size is normal. 23. IVC Not well visulized. 24. There is no pericardial effusion. SILK SCREEN PRINTING RACKER: Shalini Almazan RDCS
[2019-11-20 12:14] LABS: Glucose,Whole Blood 175 mg/dL (75-99)
--- NOTE | 2019-11-20 13:40 | P.CRDCN ---
History of Present Illness History of present illness: HISTORY OF PRESENTING ILLNESS This is a pleasant 69-year-old male past medical history significant for coronary artery disease status post three-vessel bypass grafting performed per the patient and April 2017 at [facility], hypertension, dyslipidemia, diabetes mellitus, chronic persistent atrial fibrillation on long- term anticoagulation, obstructive sleep apnea, deaf and obesity. He follows in the office with a plumber's helper out of [facility]. We have been asked to see in consultation for heart failure. He is seen and examined sitting up resting comfortably in bed in no acute distress. He states for the last few days he has been feeling increasingly dizzy when he changes positions, short of breath and increase lower extremity edema. He has recently decreased his lasix dose at home because he felt his swelling and weight had improved. He also has associated orthopnea. He denies chest pain or palpitations. Echocardiogram obtained reveals preserved LV systolic function with ejection fraction 55-60%. DIAGNOSTICS EKG reveals atrial fibrillation, right bundle branch block heart rate of 65. Telemetry tracings reviewed, no acute arrhythmia. Significant artifact. Chest xray cardiomegaly with new mild central vascular congestion and developing peripheral infiltrates bilaterally. Laboratory reviewed, WBC 5.6, hemoglobin 10.5, platelets 201, pCO2 41, cardiac enzymes negative 3, NTproBNP 2900, creatinine 1.09, sodium 137, potassium 4.2, magnesium 2.2. Current cardiac medications include amiodarone 100 mg daily, Eliquis 5 mg twice a day, aspirin 81 mg daily, atorvastatin 10 mg daily, carvedilol 12.5 mg twice a day, Lasix 40 mg twice a day, lisinopril 5 mg daily and daily potassium supplementation. REVIEW OF SYSTEMS At the time of my exam: CONSTITUTIONAL: Denies fever or chills. CARDIOVASCULAR: Complains of shortness of breath. Denies chest pain, orthopnea, PND or palpitations. RESPIRATORY: Denies cough. GASTROINTESTINAL: Denies abdominal pain, diarrhea, constipation, nausea or vomiting. MUSCULOSKELETAL: Denies myalgias. NEUROLOGIC: Complains of dizziness. Denies numbness, tingling or weakness. ENDOCRINE: Denies fatigue, weight change, polydipsia or polyurina. GENITOURINARY: Denies burning, hematuria or urgency with micturation. HEMATOLOGIC: Denies history of anemia or bleeding. PHYSICAL EXAMINATION Blood pressure 150/82 heart rate 67 afebrile and maintaining oxygen saturation on nasal cannula. CONSTITUTIONAL: No apparent distress. Obese. HEENT: Head is normocephalic. Pupils are equal, round. Sclerae anicteric. Mucous membranes of the mouth are moist. No JVD. No carotid bruit. CHEST EXAMINATION: Faint bibasilar rales, diminished bilaterally, no wheezes or rhonchi. No chest wall tenderness is noted on palpation or with deep breathing. HEART EXAMINATION: Irregular rate and rhythm. S1, S2 heard. No murmurs, gallops or rub. ABDOMEN: Soft, nontender. Positive bowel sounds. EXTREMITIES: 2+ peripheral pulses, 1+ bilateral lower extremity edema, right lower extremity erythema and excoriation and no calf tenderness. NEUROLOGIC EXAMINATION: Patient is awake, alert and oriented x3. ASSESSMENT Acute on chronic diastolic heart failure Chronic persistent atrial fibrillation on manager basketball anticoagulation Dizziness with position changes Cellulitis Coronary artery disease s/p bypass grafting Hypertension Dyslipidemia Diabetes mellitus Obesity, BMI 37 Obstructive sleep apnea PLAN Check for orthostatic changes. Echocardiogram reviewed, no changes from previous. Increase lasix to 40 mg TID IV. Follow renal function and electrolytes in the morning. Document accurate intake and output along with daily weights. Consider increasing anti-hypertensives if blood pressure remains elevated and there are no orthostatic changes. Thank you kindly for this consultation. Nurse Practitioner note has been reviewed, I agree with a documented findings and plan of care. Patient was seen and examined. Past Medical History Past Medical History: Atrial Fibrillation, Coronary Artery Disease (CAD), Diabetes Mellitus, Hearing Disorder / Deafness, Hyperlipidemia, Hypertension, Myocardial Infarction ([place]), Skin Disorder, Sleep Apnea/CPAP/BIPAP Additional Past Medical History / Comment(s): Pt is deaf, IDDM type II, bilateral hands/arms and leg/feet neuropathy, JAMEY with no current CPAP use, psoriasis, constipation, pt needs oral surgery. paroxsymal afib. Pt is a Jehovah Witness and is not to receive blood. Last Myocardial Infarction Date:: 2008 History of Any Multi-Drug Resistant Organisms: None Reported Past Surgical History: Heart Catheterization With Stent Additional Past Surgical History / Comment(s): One cardiac stent placed approx 2008 at [facility], Past Anesthesia/Blood Transfusion Reactions: No Reported Reaction Additional Past Anesthesia/Blood Transfusion Reaction / Comment(s): DOES NOT RECIEVE BLOOD TRANSFUSIONS Date of Last Stent Placement:: 2008 Past Psychological History: Depression Smoking Status: Former smoker Past Alcohol Use History: None Reported Past Drug Use History: None Reported - Past Family History Father History Unknown: Yes Additional Family Medical History / Comment(s): FOSTER CHILD, NO CONTACT WITH BIOLOGICAL FAMILY SINCE AGE 1. Mother History Unknown: Yes Family Medical History: No Reported History Medications and Allergies Home Medications Medication Instructions Recorded Confirmed Type Atorvastatin [Lipitor] 10 mg PO DAILY 11/27/15 11/19/19 History Carvedilol [Coreg] 12.5 mg PO BID 01/30/17 11/19/19 History Amiodarone [Cordarone] 100 mg PO DAILY 05/12/18 11/19/19 History Apixaban [Eliquis] 5 mg PO BID 05/12/18 11/19/19 History Baclofen [Lioresal] 10 mg PO TID 05/12/18 11/19/19 History Ferrous Sulfate [Feosol] 325 mg PO BID 05/12/18 11/19/19 History Levothyroxine Sodium [Synthroid] 112 mcg PO DAILY 05/12/18 11/19/19 History Lisinopril [Prinivil] 5 mg PO DAILY 05/12/18 11/19/19 History Pantoprazole Sodium [Protonix] 40 mg PO DAILY 05/12/18 11/19/19 History Potassium Chloride ER [K-Dur 10] 10 meq PO DAILY 05/12/18 11/19/19 History Gabapentin 800 mg PO BID 09/09/18 11/19/19 History Insulin Aspart [NovoLOG] 5 unit SQ AC-TID 09/09/18 11/20/19 History Montelukast [Singulair] 10 mg PO HS 09/09/18 11/19/19 History Carboxymethylcellulos/Glycerin 1 drop BOTH EYES TID PRN 09/22/18 11/19/19 History [Refresh Repair 0.5-0.9% Drop] Insulin Detemir [Levemir Flextouch] 15 units SQ BID 09/22/18 11/20/19 History metFORMIN HCL [Glucophage] 500 mg PO BID 09/22/18 11/19/19 History Albuterol Sulfate [Ventolin HFA] 1 - 2 puff INHALATION RT-Q6H PRN 08/27/19 11/19/19 History Aspirin 81 mg PO DAILY 08/27/19 11/19/19 History Finasteride [Proscar] 5 mg PO DAILY 08/27/19 11/19/19 History Sertraline [Zoloft] 100 mg PO DAILY 08/27/19 11/19/19 History Tamsulosin [Flomax] 0.4 mg PO DAILY 08/27/19 11/19/19 History Furosemide [Lasix] 40 mg PO BID 11/19/19 11/19/19 History busPIRone HCL 10 mg PO TID 11/19/19 11/19/19 History Allergies Allergy/AdvReac Type Severity Reaction Status Date / Time No Known Allergies Allergy Verified 11/19/19 21:49 Physical Exam Vitals: Vital Signs Temp Pulse Pulse Resp BP BP Pulse Ox 11/20/19 07:00 98.0 F 67 18 150/82 96 11/20/19 02:49 98.1 F 67 20 146/76 96 11/19/19 21:21 98.2 F 68 19 119/60 92 L 11/19/19 20:25 98.1 F 79 18 145/77 94 L 11/19/19 18:50 73 18 110/85 99 11/19/19 17:52 77 18 129/72 95 11/19/19 16:01 75 18 130/72 90 L 11/19/19 14:26 98.4 F 75 18 109/72 90 L Intake and Output 11/19/19 11/20/19 11/20/19 22:59 06:59 14:59 Intake Total 480 480 480 Output Total 1250 200 Balance 480 -770 280 Intake: Oral 480 480 480 Output: Urine 1250 200 Other: Voiding Method Toilet Toilet # Voids 2 1 1 Weight 113.398 kg 116 kg Results 11/20/19 02:51 11/20/19 02:51 Cardiac Enzymes 11/19/19 11/19/19 11/19/19 Range/Units 14:55 14:55 23:23 AST 31 (17-59) U/L Troponin I <0.012 <0.012 (0.000-0.034) ng/mL 11/20/19 Range/Units 02:51 AST (17-59) U/L Troponin I <0.012 (0.000-0.034) ng/mL Coagulation 11/19/19 Range/Units 14:55 PT 10.6 (9.0-12.0) sec APTT 27.2 (22.0-30.0) sec CBC 11/19/19 11/20/19 Range/Units 14:55 02:51 WBC 6.0 5.6 (3.8-10.6) k/uL RBC 3.28 L 3.28 L (4.30-5.90) m/uL Hgb 10.5 L 10.5 L (13.0-17.5) gm/dL Hct 34.0 L 34.4 L (39.0-53.0) % Plt Count 200 201 (150-450) k/uL Comprehensive Metabolic Panel 11/19/19 11/20/19 Range/Units 14:55 02:51 Sodium 135 L 137 (137-145) mmol/L Potassium 5.1 4.2 (3.5-5.1) mmol/L Chloride 95 L 91 L (98-107) mmol/L Carbon Dioxide 34 H 41 H* (22-30) mmol/L BUN 17 16 (9-20) mg/dL Creatinine 1.03 1.09 (0.66-1.25) mg/dL Glucose 153 H 219 H (74-99) mg/dL Calcium 8.3 L 8.3 L (8.4-10.2) mg/dL AST 31 (17-59) U/L ALT 25 (4-49) U/L Alkaline Phosphatase 65 (38-126) U/L Total Protein 6.8 (6.3-8.2) g/dL Albumin 3.9 (3.5-5.0) g/dL Current Medications Generic Name Dose Route Start Last Admin Trade Name Freq PRN Reason Stop Dose Admin Albuterol Sulfate 2.5 mg 11/20/19 04:26 Ventolin Nebulized INHALATION RT-Q6H PRN Shortness Of Breath/Wheezing Amiodarone HCl 100 mg 11/20/19 09:00 11/20/19 08:27 Cordarone PO 100 mg DAILY MISAEL Administration Apixaban 5 mg 11/20/19 09:00 11/20/19 08:28 Eliquis PO 5 mg BID MISAEL Administration Aspirin 81 mg 11/20/19 09:00 11/20/19 08:28 Aspirin PO 81 mg DAILY MISAEL Administration Atorvastatin Calcium 10 mg 11/20/19 09:00 11/20/19 08:28 Lipitor PO 10 mg DAILY MISAEL Administration Baclofen 10 mg 11/20/19 09:00 11/20/19 08:28 Lioresal PO 10 mg TID MISAEL Administration Carvedilol 12.5 mg 11/20/19 07:30 11/20/19 07:25 Coreg PO 12.5 mg AC-BID MISAEL Administration Clindamycin HCl 150 mg 11/20/19 09:00 11/20/19 08:28 Cleocin PO 150 mg QID MISAEL Administration Finasteride 5 mg 11/20/19 09:00 11/20/19 08:28 Proscar PO 5 mg DAILY MISAEL Administration Furosemide 40 mg 11/20/19 09:00 11/20/19 08:28 Lasix IV 40 mg Q12HR MISAEL Administration Insulin Aspart 4 unit 11/20/19 07:30 11/20/19 07:25 Novolog SQ 4 unit AC-TID MISAEL Administration Insulin Detemir 10 unit 11/19/19 22:15 11/19/19 22:35 Levemir SQ 10 unit HS [facility] Administration Levothyroxine Sodium 112 mcg 11/20/19 06:30 11/20/19 05:27 Synthroid PO 112 mcg DAILY@0630 MISAEL Administration Lisinopril 5 mg 11/20/19 09:00 11/20/19 08:28 Zestril PO 5 mg DAILY MISAEL Administration Montelukast Sodium 10 mg 11/20/19 21:00 Singulair PO HS [facility] Naloxone HCl 0.2 mg 11/19/19 19:04 Narcan IV Q2M PRN Opioid Reversal Pantoprazole Sodium 40 mg 11/20/19 07:30 11/20/19 07:25 Protonix PO 40 mg DAILY@0730 MISAEL Administration Sertraline HCl 100 mg 11/20/19 09:00 11/20/19 08:28 Zoloft PO 100 mg DAILY MISAEL Administration Tamsulosin HCl 0.4 mg 11/20/19 09:00 11/20/19 08:28 Flomax PO 0.4 mg DAILY MISAEL Administration Intake and Output 11/19/19 11/20/19 11/20/19 22:59 06:59 14:59 Intake Total 480 480 480 Output Total 1250 200 Balance 480 -770 280 Intake: Oral 480 480 480 Output: Urine 1250 200 Other: Voiding Method Toilet Toilet # Voids 2 1 1 Weight 113.398 kg 116 kg 11/20/19 02:51 11/20/19 02:51
[2019-11-20 14:40] VITALS: BMI 37.8
--- NOTE | 2019-11-20 15:10 | P.PN ---
Subjective Patient is awake and alert. I was able to speak to him using to sign limited radiology technician. Patient denies any worsening shortness of breath. He said lower extremity edema is improving compared to yesterday. He is complaining of feeling cold in the room and requesting a warmer room. No chest pain or discomfort. No acute events overnight reported by nursing staff. Objective - Vital Signs Vital signs: Vital Signs Temp 98.0 F 11/20/19 07:00 Pulse 67 11/20/19 07:00 Resp 18 11/20/19 07:00 BP 150/82 11/20/19 07:00 Pulse Ox 96 11/20/19 07:00 Intake & Output 11/19/19 11/20/19 11/20/19 18:59 06:59 18:59 Intake Total 960 480 Output Total 1250 200 Balance -290 280 Weight 113.398 kg 116 kg 116 kg Intake: Oral 960 480 Output: Urine 1250 200 Other: Voiding Method Toilet Toilet # Voids 1 1 - Exam General: The patient is awake and alert, in no distress Eye: there is normal conjunctiva bilaterally. Neck: The neck is supple, there is no JVD. Cardiovascular: Normal S1-S2, no S3-S4, no murmurs. Respiratory: Lungs clear to auscultation bilaterally Gastrointestinal: Abdomen is soft, nontender Musculoskeletal: There is +1-2 pedal edema. Neurological:. Speech is normal. Skin: Area of erythema in the right lower extremity extending from above the ankle to the midshin area with some excoriations. - Labs CBC & Chem 7: 11/20/19 02:51 11/20/19 02:51 Labs: Abnormal Lab Results - Last 24 Hours (Table) 11/19/19 11/19/19 11/19/19 Range/Units 14:55 14:55 22:28 RBC 3.28 L (4.30-5.90) m/uL Hgb 10.5 L (13.0-17.5) gm/dL Hct 34.0 L (39.0-53.0) % MCV 103.6 H (80.0-100.0) fL MCHC 30.8 L (31.0-37.0) g/dL RDW 15.8 H (11.5-15.5) % Lymphocytes # 0.5 L (1.0-4.8) k/uL VBG pCO2 (37-51) mmHg VBG HCO3 (24-28) mmol/L Sodium 135 L (137-145) mmol/L Chloride 95 L (98-107) mmol/L Carbon Dioxide 34 H (22-30) mmol/L Glucose 153 H (74-99) mg/dL POC Glucose (mg/dL) 206 H (75-99) mg/dL Calcium 8.3 L (8.4-10.2) mg/dL Total Bilirubin 1.8 H (0.2-1.3) mg/dL C-Reactive Protein 34.3 H (<10.0) mg/L 11/20/19 11/20/19 11/20/19 Range/Units 02:51 02:51 02:51 RBC 3.28 L (4.30-5.90) m/uL Hgb 10.5 L (13.0-17.5) gm/dL Hct 34.4 L (39.0-53.0) % MCV 104.8 H (80.0-100.0) fL MCHC 30.6 L (31.0-37.0) g/dL RDW 15.8 H (11.5-15.5) % Lymphocytes # 0.7 L (1.0-4.8) k/uL VBG pCO2 67 H (37-51) mmHg VBG HCO3 40 H (24-28) mmol/L Sodium (137-145) mmol/L Chloride 91 L (98-107) mmol/L Carbon Dioxide 41 H* (22-30) mmol/L Glucose 219 H (74-99) mg/dL POC Glucose (mg/dL) (75-99) mg/dL Calcium 8.3 L (8.4-10.2) mg/dL Total Bilirubin (0.2-1.3) mg/dL C-Reactive Protein (<10.0) mg/L 11/20/19 11/20/19 Range/Units 07:20 12:13 RBC (4.30-5.90) m/uL Hgb (13.0-17.5) gm/dL Hct (39.0-53.0) % MCV (80.0-100.0) fL MCHC (31.0-37.0) g/dL RDW (11.5-15.5) % Lymphocytes # (1.0-4.8) k/uL VBG pCO2 (37-51) mmHg VBG HCO3 (24-28) mmol/L Sodium (137-145) mmol/L Chloride (98-107) mmol/L Carbon Dioxide (22-30) mmol/L Glucose (74-99) mg/dL POC Glucose (mg/dL) 213 H 175 H (75-99) mg/dL Calcium (8.4-10.2) mg/dL Total Bilirubin (0.2-1.3) mg/dL C-Reactive Protein (<10.0) mg/L Assessment and Plan Assessment: Acute diastolic heart failure exacerbation -Repeat echocardiogram showed preserved ejection fraction of 55% -Cardiology consulted, appreciate recommendation -Started Lasix IV -Fluid restriction -Daily weight and monitor intake and output Near syncope, orthostatic blood pressure pending -Cardiac monitoring -Cardiology consulted -Fall, seizure, aspiration precautions RLE cellulitis -Order Clindamycin Alkalosis, possibly due to chronic diuretic use vs compensatory in setting of poorly controlled JAMEY -We will continue to monitor Macrocytic anemia B12 and folate levels within acceptable range Chronic hypoxic respiratory failure, in setting of COPD -Continue with home inhalers -Continue with supplemental oxygen A. fib, persistent -Continue with home Eliquis Type II DM -Levemir 10 units daily at bedtime and aspart 4 units TID-AC (takes 15 U and 5 U TIDAC at home respectively) -Blood glucose monitoring -Sliding scale Chronic conditions: Hypertension, hyperkalemia, CAD -Continue with home meds DVT prophylaxis -Eliquis The patient is admitted with an anticipated more than 2 midnight stay for ev aluation of acute COPD exacerbation CODE STATUS: Full Code Discussed with: Patient Anticipated discharge date: 2-[address]: Home A total of 35 minutes was spent on the care of this complex patient more than 50% of the time was spent in counseling and care coordination.
[2019-11-20] MEDS: FUROSEMIDE 10 MG/ML 4 ML VIAL IV SCH ×2 (17:00→22:49)
[2019-11-20 17:03] LABS: Glucose,Whole Blood 300 mg/dL (75-99)
[2019-11-20 19:11] LABS: Glucose,Whole Blood 308 mg/dL (75-99)
[2019-11-20 20:40] LABS: Glucose,Whole Blood 304 mg/dL (75-99)
[2019-11-20] MEDS: MONTELUKAST 10 MG TAB PO SCH (21:14)
[2019-11-20] MEDS: INSULIN DETEMIR (LEVEMIR) 100 UNIT/ML SYR SQ SCH (21:15)
[2019-11-21] MEDS: LEVOTHYROXINE 112 MCG TAB PO SCH (06:14)
[2019-11-21 06:55] LABS: Glucose,Whole Blood 172 mg/dL (75-99)
[2019-11-21 08:04] LABS: Calcium 8.5 mg/dL (8.4-10.2); Potassium 3.7 mmol/L (3.5-5.1)
[2019-11-21] MEDS: ATORVASTATIN 10 MG TAB PO SCH (08:21)
[2019-11-21] MEDS: CARVEDILOL 12.5 MG TAB PO SCH ×2 (08:21→17:45)
[2019-11-21] MEDS: FINASTERIDE 5 MG TAB PO SCH (08:21)
[2019-11-21] MEDS: PANTOPRAZOLE 40 MG TABLET PO SCH (08:21)
[2019-11-21] MEDS: TAMSULOSIN 0.4 MG CAP.ER.24H PO SCH (08:21)
[2019-11-21] MEDS: LISINOPRIL 5 MG TAB PO SCH (08:21)
[2019-11-21] MEDS: SERTRALINE 100 MG TAB PO SCH (08:21)
[2019-11-21] MEDS: AMIODARONE 200 MG TAB PO SCH (08:21)
[2019-11-21] MEDS: ASPIRIN 81 MG PO SCH (08:21)
[2019-11-21] MEDS: FUROSEMIDE 10 MG/ML 4 ML VIAL IV SCH (08:22)
[2019-11-21] MEDS: APIXABAN 5 MG TAB PO SCH ×2 (08:22→21:04)
[2019-11-21] MEDS: BACLOFEN 10 MG TAB PO SCH ×3 (08:22→21:04)
[2019-11-21] MEDS: INSULIN ASPART (NovoLOG) 100 UNIT/ML VIAL SQ SCH ×4 (08:23→21:04)
[2019-11-21] MEDS: CLINDAMYCIN 150 MG CAP PO SCH ×4 (08:57→21:04)
[2019-11-21] MEDS: ACETAMINOPHEN TAB 325 MG TAB PO PRN (11:04)
--- NOTE | 2019-11-21 11:16 | P.PN ---
Subjective HISTORY OF PRESENTING ILLNESS This is a pleasant 69-year-old male past medical history significant for coronary artery disease status post three-vessel bypass grafting performed per the patient and April 2017 at [facility], hypertension, dyslipidemia, diabetes mellitus, chronic persistent atrial fibrillation on long- term anticoagulation, obstructive sleep apnea, deaf and obesity. He follows in the office with a roller gold leaf out of [facility]. He is seen and examined sitting up on the edge of the bed. Farmworker General at the bedside for translation. He states his breathing has improved however he continues to feel dizzy with positions changes. Orthostatic vital signs reviewed. Denies chest pain or palpitations. Resting blood pressure this morning 153/76 heart rate 65 afebrile maintaining oxygen saturation on nasal cannula. Laboratory data reviewed, sodium 139, potassium 3.7, creatinine 1.01. Telemetry tracings unremarkable. PHYSICAL EXAMINATION CONSTITUTIONAL: No apparent distress. Obese. HEENT: Head is normocephalic. Pupils are equal, round. Sclerae anicteric. Mucous membranes of the mouth are moist. No JVD. No carotid bruit. CHEST EXAMINATION: Clear to auscultation. No rales, wheezes or rhonchi. No chest wall tenderness is noted on palpation or with deep breathing. Diminished bilaterally. HEART EXAMINATION: Irregular rate and rhythm. S1, S2 heard. No murmurs, gallops or rub. EXTREMITIES: 2+ peripheral pulses, 1+ bilateral lower extremity edema up to the knee, right lower extremity erythema and excoriation and no calf tenderness. ASSESSMENT Acute on chronic diastolic heart failure Chronic persistent atrial fibrillation on usp anticoagulation Dizziness with position changes, orthostatic changes noted. Cellulitis Coronary artery disease s/p bypass grafting Hypertension Dyslipidemia Diabetes mellitus Obesity, BMI 37 Obstructive sleep apnea PLAN Initiate small dose of midodrine 2.5 mg 3 times a day. Transition to oral diuretics. Continue to check for orthostatic changes every shift. Apply JUAN PABLO hose and change positions slowly. Nurse Practitioner note has been reviewed, I agree with a documented findings and plan of care. Patient was seen and examined. Objective - Vital Signs Vital signs: Vital Signs Temp 98.2 F 11/21/19 07:00 Pulse 65 11/21/19 07:00 Resp 18 11/21/19 07:00 BP 153/76 11/21/19 07:00 Pulse Ox 94 L 05/07/20 07:00 Intake & Output 11/20/19 11/21/19 11/21/19 18:59 06:59 18:59 Intake Total 480 Output Total 200 Balance 280 Weight 116 kg 115.4 kg Intake: Oral 480 Output: Urine 200 Other: Voiding Method Toilet Toilet # Voids 1 - Labs CBC & Chem 7: 11/20/19 02:51 11/21/19 07:23 Labs: Abnormal Lab Results - Last 24 Hours (Table) 11/20/19 11/20/19 11/20/19 Range/Units 12:13 17:02 18:50 Chloride (98-107) mmol/L Carbon Dioxide (22-30) mmol/L Glucose (74-99) mg/dL POC Glucose (mg/dL) 175 H 300 H 308 H (75-99) mg/dL 11/20/19 11/21/19 11/21/19 Range/Units 20:39 06:54 07:23 Chloride 92 L (98-107) mmol/L Carbon Dioxide 39 H (22-30) mmol/L Glucose 162 H (74-99) mg/dL POC Glucose (mg/dL) 304 H 172 H (75-99) mg/dL Microbiology - Last 24 Hours (Table) 11/19/19 19:54 Blood Culture - Preliminary Blood No Growth after 24 hours
[2019-11-21 12:10] LABS: Glucose,Whole Blood 188 mg/dL (75-99)
[2019-11-21] MEDS: MIDODRINE 5 MG TAB PO SCH ×2 (12:35→17:45)
--- NOTE | 2019-11-21 15:03 | P.PN ---
Subjective Patient is awake and alert. I was able to speak to him using to sign interpreter and translator. Patient denies any worsening shortness of breath. He is complai lamonte of some dizziness but denies any headache or chest pain. Objective - Vital Signs Vital signs: Vital Signs Temp 98.2 F 11/21/19 07:00 Pulse 65 11/21/19 07:00 Resp 18 11/21/19 07:00 BP 153/76 11/21/19 07:00 Pulse Ox 94 L 11/21/19 07:00 Intake & Output 11/20/19 11/21/19 11/21/19 18:59 06:59 18:59 Intake Total 480 Output Total 200 Balance 280 Weight 116 kg 115.4 kg Intake: Oral 480 Output: Urine 200 Other: Voiding Method Toilet Toilet # Voids 1 - Exam General: The patient is awake and alert, in no distress Eye: there is normal conjunctiva bilaterally. Neck: The neck is supple, there is no JVD. Cardiovascular: Normal S1-S2, no S3-S4, no murmurs. Respiratory: Lungs clear to auscultation bilaterally Gastrointestinal: Abdomen is soft, nontender Musculoskeletal: There is +1-2 pedal edema. Neurological:. Speech is normal. Skin: Area of erythema in the right lower extremity extending from above the ankle to the midshin area with some excoriations. - Labs CBC & Chem 7: 11/20/19 02:51 11/21/19 07:23 Labs: Abnormal Lab Results - Last 24 Hours (Table) 11/20/19 11/20/19 11/20/19 Range/Units 17:02 18:50 20:39 Chloride (98-107) mmol/L Carbon Dioxide (22-30) mmol/L Glucose (74-99) mg/dL POC Glucose (mg/dL) 300 H 308 H 304 H (75-99) mg/dL 11/21/19 11/21/19 11/21/19 Range/Units 06:54 07:23 12:09 Chloride 92 L (98-107) mmol/L Carbon Dioxide 39 H (22-30) mmol/L Glucose 162 H (74-99) mg/dL POC Glucose (mg/dL) 172 H 188 H (75-99) mg/dL Microbiology - Last 24 Hours (Table) 11/19/19 19:54 Blood Culture - Preliminary Blood No Growth after 24 hours Assessment and Plan Assessment: Acute diastolic heart failure exacerbation -Repeat echocardiogram showed preserved ejection fraction of 55% -Cardiology consulted, appreciate recommendation -Started Lasix IV and transitioned to oral today -Fluid restriction -Daily weight and monitor intake and output Near syncope, orthostatic blood pressure reviewed -Cardiac monitoring -Cardiology consulted -Fall, seizure, aspiration precautions RLE cellulitis -On Clindamycin Macrocytic anemia B12 and folate levels within acceptable range Chronic hypoxic respiratory failure, in setting of COPD -Continue with home inhalers -Continue with supplemental oxygen A. fib, persistent -Continue with home Eliquis Type II DM -Levemir 10 units daily at bedtime and aspart 4 units TID-AC (takes 15 U and 5 U TIDAC at home respectively) -Blood glucose monitoring -Sliding scale Chronic conditions: Hypertension, hyperkalemia, CAD -Continue with home meds DVT prophylaxis -Eliquis The patient is admitted with an anticipated more than 2 midnight stay for evaluation of acute COPD exacerbation CODE STATUS: Full Code Discussed with: Patient Anticipated discharge date: 1-[address]: Home A total of 35 minutes was spent on the care of this complex patient more than 50% of the time was spent in counseling and care coordination.
[2019-11-21 17:07] LABS: Glucose,Whole Blood 262 mg/dL (75-99)
[2019-11-21] MEDS: FUROSEMIDE 40 MG TAB PO SCH (17:45)
[2019-11-21 20:33] LABS: Glucose,Whole Blood 293 mg/dL (75-99)
[2019-11-21] MEDS: MONTELUKAST 10 MG TAB PO SCH (21:04)
[2019-11-21] MEDS: INSULIN DETEMIR (LEVEMIR) 100 UNIT/ML SYR SQ SCH (21:04)
[2019-11-22] MEDS: LEVOTHYROXINE 112 MCG TAB PO SCH (05:54)
[2019-11-22 06:58] LABS: Glucose,Whole Blood 179 mg/dL (75-99)
[2019-11-22 07:42] LABS: Basophils % (A) 0 %; Eosinophils # (A) 0.1 k/uL (0-0.7); Eosinophils % (A) 2 %; HCT 37.4 % (39.0-53.0); HGB 11.3 gm/dL (13.0-17.5); Hypochromasia Moderate; Lymphocytes # (A) 0.7 k/uL (1.0-4.8); Lymphocytes % (A) 12 %; MCH 31.2 pg (25.0-35.0); MCHC 30.3 g/dL (31.0-37.0); Macrocytosis Slight; Mean Platelet Volume 7.8; Monocytes # (A) 0.4 k/uL (0-1.0); Monocytes % (A) 7 %; Neutrophils # (A) 4.5 k/uL (1.3-7.7); Neutrophils % (A) 76 %; Platelet Count 230 k/uL (150-450); RBC 3.63 m/uL (4.30-5.90); RDW 15.5 % (11.5-15.5)
[2019-11-22 07:56] VITALS: BP 136/63; PULSE 65; RESP 16; TEMP 98.9
[2019-11-22 08:00] LABS: Calcium 8.4 mg/dL (8.4-10.2)
[2019-11-22] MEDS: ACETAMINOPHEN TAB 325 MG TAB PO PRN (08:34)
[2019-11-22] MEDS: APIXABAN 5 MG TAB PO SCH (08:35)
[2019-11-22] MEDS: ASPIRIN 81 MG PO SCH (08:35)
[2019-11-22] MEDS: SERTRALINE 100 MG TAB PO SCH (08:35)
[2019-11-22] MEDS: FINASTERIDE 5 MG TAB PO SCH (08:35)
[2019-11-22] MEDS: ATORVASTATIN 10 MG TAB PO SCH (08:35)
[2019-11-22] MEDS: CARVEDILOL 12.5 MG TAB PO SCH (08:35)
[2019-11-22] MEDS: PANTOPRAZOLE 40 MG TABLET PO SCH (08:35)
[2019-11-22] MEDS: MIDODRINE 5 MG TAB PO SCH (08:35)
[2019-11-22] MEDS: CLINDAMYCIN 150 MG CAP PO SCH (08:36)
[2019-11-22] MEDS: AMIODARONE 200 MG TAB PO SCH (08:36)
[2019-11-22] MEDS: FUROSEMIDE 40 MG TAB PO SCH (08:36)
[2019-11-22] MEDS: LISINOPRIL 5 MG TAB PO SCH (08:36)
[2019-11-22] MEDS: INSULIN ASPART (NovoLOG) 100 UNIT/ML VIAL SQ SCH (08:36)
[2019-11-22] MEDS: BACLOFEN 10 MG TAB PO SCH (08:36)
[2019-11-22] MEDS: TAMSULOSIN 0.4 MG CAP.ER.24H PO SCH (08:36)
--- NOTE | 2019-11-22 09:25 | P.DS ---
Providers Date of admission: 11/19/19 19:04 Expected date of discharge: 11/22/19 Attending physician: Elizabet Greene DO Consults: 11/19/19 22:05 Consult Physician Routine Consulting Provider: Jackson Diaz Consult Reason/Comments: CHF exace Do you want consulting provider notified?: Yes Primary care physician: Waldo Hospital Course: This is a 69-year-old male with past medical history noted below significant for deafness, chronic atrial fibrillation, and chronic hypoxic respiratory failure on home O2 who presented to the emergency room with worsening shortness of breath and episode of near syncope. Patient was evaluated in the ER and admitted to the hospital for further management of his medical problems noted below. Acute diastolic heart failure exacerbation -Repeat echocardiogram showed preserved ejection fraction of 55% -Cardiology consulted, appreciate recommendation -Improved significantly with IV Lasix. Transitioned to Lasix 40 mg by mouth twice daily Near syncope, orthostatic blood pressure improved -Cardiac monitoring -Cardiology consulted, midodrine 2.5 mg 3 times a day added to his regimen -Fall, seizure, aspiration precautions RLE cellulitis -On Clindamycin would finish 3 days course Macrocytic anemia B12 and folate levels within acceptable range Chronic hypoxic respiratory failure, in setting of COPD -Continue with home regimen A. fib, persistent -Continue with home Eliquis Type II DM -Continue home dose of insulin Chronic conditions: Hypertension, hyperkalemia, CAD -Continue with home meds Patient will be discharged in a stable condition. 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 All of his questions answered to his satisfaction. Patient Condition at Discharge: Fair Plan - Discharge Summary New Discharge Prescriptions: New Midodrine [ProAmatine] 2.5 mg PO AC-TID #90 tab Clindamycin HCl [Cleocin] 300 mg PO Q8H #9 cap Continue Atorvastatin [Lipitor] 10 mg PO DAILY Carvedilol [Coreg] 12.5 mg PO BID Potassium Chloride ER [K-Dur 10] 10 meq PO DAILY Pantoprazole Sodium [Protonix] 40 mg PO DAILY Lisinopril [Prinivil] 5 mg PO DAILY Levothyroxine Sodium [Synthroid] 112 mcg PO DAILY Ferrous Sulfate [Feosol] 325 mg PO BID Apixaban [Eliquis] 5 mg PO BID Amiodarone [Cordarone] 100 mg PO DAILY Montelukast [Singulair] 10 mg PO HS Insulin Aspart [NovoLOG] 5 unit SQ AC-TID Gabapentin 800 mg PO BID Carboxymethylcellulos/Glycerin [Refresh Repair 0.5-0.9% Drop] 1 drop BOTH EYES TID PRN PRN Reason: Dry Eye(S) Insulin Detemir [Levemir Flextouch] 15 units SQ BID metFORMIN HCL [Glucophage] 500 mg PO BID Tamsulosin [Flomax] 0.4 mg PO DAILY Sertraline [Zoloft] 100 mg PO DAILY Finasteride [Proscar] 5 mg PO DAILY Aspirin 81 mg PO DAILY Albuterol Sulfate [Ventolin HFA] 1 - 2 puff INHALATION RT-Q6H PRN PRN Reason: Shortness Of Breath/Wheezing busPIRone HCL 10 mg PO TID Furosemide [Lasix] 40 mg PO BID Discontinued Baclofen [Lioresal] 10 mg PO TID Discharge Medication List Atorvastatin [Lipitor] 10 mg PO DAILY 11/27/15 [History] Carvedilol [Coreg] 12.5 mg PO BID 01/30/17 [History] Amiodarone [Cordarone] 100 mg PO DAILY 05/12/18 [History] Apixaban [Eliquis] 5 mg PO BID 05/12/18 [History] Ferrous Sulfate [Feosol] 325 mg PO BID 05/12/18 [History] Levothyroxine Sodium [Synthroid] 112 mcg PO DAILY 05/12/18 [History] Lisinopril [Prinivil] 5 mg PO DAILY 05/12/18 [History] Pantoprazole Sodium [Protonix] 40 mg PO DAILY 05/12/18 [History] Potassium Chloride ER [K-Dur 10] 10 meq PO DAILY 05/12/18 [History] Gabapentin 800 mg PO BID 09/09/18 [History] Insulin Aspart [NovoLOG] 5 unit SQ AC-TID 09/09/18 [History] Montelukast [Singulair] 10 mg PO HS 09/09/18 [History] Carboxymethylcellulos/Glycerin [Refresh Repair 0.5-0.9% Drop] 1 drop BOTH EYES TID PRN 09/22/18 [History] Insulin Detemir [Levemir Flextouch] 15 units SQ BID 09/22/18 [History] metFORMIN HCL [Glucophage] 500 mg PO BID 09/22/18 [History] Albuterol Sulfate [Ventolin HFA] 1 - 2 puff INHALATION RT-Q6H PRN 08/27/19 [History] Aspirin 81 mg PO DAILY 08/27/19 [History] Finasteride [Proscar] 5 mg PO DAILY 08/27/19 [History] Sertraline [Zoloft] 100 mg PO DAILY 08/27/19 [History] Tamsulosin [Flomax] 0.4 mg PO DAILY 08/27/19 [History] Furosemide [Lasix] 40 mg PO BID 11/19/19 [History] busPIRone HCL 10 mg PO TID 11/19/19 [History] Clindamycin HCl [Cleocin] 300 mg PO Q8H #9 cap 11/22/19 [Rx] Midodrine [ProAmatine] 2.5 mg PO AC-TID #90 tab 11/22/19 [Rx] Follow up Appointment(s)/Referral(s): Sherron Anderson MD [Primary Care Provider] - 1-2 days [facility] [NON-STAFF] - Discharge Disposition: HOME SELF-CARE
--- NOTE | 2019-11-22 10:16 | P.PN ---
Subjective HISTORY OF PRESENTING ILLNESS This is a pleasant 69-year-old male past medical history significant for coronary artery disease status post three-vessel bypass grafting performed per the patient and April 2017 at [facility], hypertension, dyslipidemia, diabetes mellitus, chronic persistent atrial fibrillation on long- term anticoagulation, obstructive sleep apnea, deaf and obesity. He follows in the office with a elementary supervisor out of [facility]. He is seen and examined laying flat in bed in no acute distress. He states his dizziness has improved significantly, but not entirely gone. Repeat orthostatic blood press ures revealed no significant changes position changes. Currently maintained on midodrine. Diuretics have been transitioned to oral as of yesterday. Blood pressure 136/63 heart rate 65 afebrile maintaining oxygen saturation on room air. Laboratory data reviewed, WBC 6, hemoglobin 11.3, platelets 230, sodium 139, potassium 4.0 and creatinine 1.06. PHYSICAL EXAMINATION CONSTITUTIONAL: No apparent distress. Obese. HEENT: Head is normocephalic. Pupils are equal, round. Sclerae anicteric. Mucous membranes of the mouth are moist. No JVD. No carotid bruit. CHEST EXAMINATION: Clear to auscultation. No rales, wheezes or rhonchi. No chest wall tenderness is noted on palpation or with deep breathing. Diminished bilaterally. HEART EXAMINATION: Irregular rate and rhythm. S1, S2 heard. No murmurs, gallops or rub. EXTREMITIES: 2+ peripheral pulses, trace bilateral lower extremity edema, right lower extremity erythema and excoriation and no calf tenderness. 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 Cellulitis Coronary artery disease s/p bypass grafting Hypertension Dyslipidemia Diabetes mellitus Obesity, BMI 37 Obstructive sleep apnea PLAN Stable for discharge on current regimen. Advised him to weigh himself daily and report changes to his elementary supervisor. Follow closely upon discharge. Nurse Practitioner note has been reviewed, I agree with a documented findings and plan of care. Patient was seen and examined. Objective - Vital Signs Vital signs: Vital Signs Temp 98.9 F 11/22/19 07:00 Pulse 65 11/22/19 08:00 Resp 16 11/22/19 08:00 BP 136/63 11/22/19 07:00 Pulse Ox 97 11/22/19 07:00 Intake & Output 11/21/19 11/22/19 11/22/19 18:59 06:59 18:59 Intake Total 100 Balance 100 Weight 116.2 kg Intake: Oral 100 Other: Voiding Method Toilet Toilet - Labs CBC & Chem 7: 11/22/19 05:43 11/22/19 05:43 Labs: Abnormal Lab Results - Last 24 Hours (Table) 11/21/19 11/21/19 11/21/19 Range/Units 07:23 12:09 17:05 RBC (4.30-5.90) m/uL Hgb (13.0-17.5) gm/dL Hct (39.0-53.0) % MCV (80.0-100.0) fL MCHC (31.0-37.0) g/dL Lymphocytes # (1.0-4.8) k/uL Chloride (98-107) mmol/L Carbon Dioxide (22-30) mmol/L BUN (9-20) mg/dL Glucose (74-99) mg/dL POC Glucose (mg/dL) 188 H 262 H (75-99) mg/dL Magnesium 2.4 H (1.6-2.3) mg/dL 11/21/19 11/22/19 11/22/19 Range/Units 20:31 05:43 05:43 RBC 3.63 L (4.30-5.90) m/uL Hgb 11.3 L (13.0-17.5) gm/dL Hct 37.4 L (39.0-53.0) % MCV 103.0 H (80.0-100.0) fL MCHC 30.3 L (31.0-37.0) g/dL Lymphocytes # 0.7 L (1.0-4.8) k/uL Chloride 94 L (98-107) mmol/L Carbon Dioxide 39 H (22-30) mmol/L BUN 22 H (9-20) mg/dL Glucose 165 H (74-99) mg/dL POC Glucose (mg/dL) 293 H (75-99) mg/dL Magnesium (1.6-2.3) mg/dL 11/22/19 Range/Units 06:55 RBC (4.30-5.90) m/uL Hgb (13.0-17.5) gm/dL Hct (39.0-53.0) % MCV (80.0-100.0) fL MCHC (31.0-37.0) g/dL Lymphocytes # (1.0-4.8) k/uL Chloride (98-107) mmol/L Carbon Dioxide (22-30) mmol/L BUN (9-20) mg/dL Glucose (74-99) mg/dL POC Glucose (mg/dL) 179 H (75-99) mg/dL Magnesium (1.6-2.3) mg/dL Microbiology - Last 24 Hours (Table) 11/19/19 19:54 Blood Culture - Preliminary Blood No Growth after 48 hours
[2019-11-22 14:13] LABS: Hemoglobin A1C 6.7 % (4.0-6.0)
== END 2019-11-22 11:31 | disposition home or self-care (01) | DRG 292 ==
LOC: EC 14:23 → 4SSUR 19:04
PROVIDERS: ADMIT Internal Medicine; ATTEND Internal Medicine
DX: I11.0 Hypertensive heart disease with heart failure (principal); L03.115 Cellulitis of right lower limb; I48.19 Other persistent atrial fibrillation; J44.1 Chronic obstructive pulmonary disease with (acute) exacerbation; E87.3 Alkalosis; J96.11 Chronic respiratory failure with hypoxia; I25.10 Atherosclerotic heart disease of native coronary artery without angina pectoris; I50.33 Acute on chronic diastolic (congestive) heart failure; G89.29 Other chronic pain; F32.9 Major depressive disorder, single episode, unspecified; E87.5 Hyperkalemia; G47.33 Obstructive sleep apnea (adult) (pediatric); E78.5 Hyperlipidemia, unspecified; E11.9 Type 2 diabetes mellitus without complications; D53.9 Nutritional anemia, unspecified; E66.9 Obesity, unspecified; H91.90 Unspecified hearing loss, unspecified ear; Z20.828 Contact with and (suspected) exposure to other viral communicable diseases; I45.10 Unspecified right bundle-branch block; Z79.01 Long term (current) use of anticoagulants; Z79.82 Long term (current) use of aspirin; Z79.899 Other long term (current) drug therapy; Z95.5 Presence of coronary angioplasty implant and graft; Z95.1 Presence of aortocoronary bypass graft; Z91.19 Patient's noncompliance with other medical treatment and regimen; Z87.891 Personal history of nicotine dependence; Z79.890 Hormone replacement therapy; Z79.4 Long term (current) use of insulin; Z68.37 Body mass index [BMI] 37.0-37.9, adult; Z98.890 Other specified postprocedural states; Z99.89 Dependence on other enabling machines and devices; I25.2 Old myocardial infarction
CPT/HCPCS: 36415; 71046; 80048; 80053; 82550; 82607; 82746; 82803; 83036; 83605; 83735; 83880; 84484; 85025; 85379; 85610; 85730; 86140; 87040; 87635; 93005; 93306; 94640; 96374; 99285

== ENCOUNTER 2020-09-06 22:13 | Observation (INO) | payer MEDICARE, OTHER ==
[2020-09-06] MEDS ORDERED: ONDANSETRON 4 MG/2 ML VIAL IVP STA (22:33)
--- NOTE | 2020-09-06 22:35 | ED ---
Abdominal Pain HPI - General Chief Complaint: Abdominal Pain Stated Complaint: Abdominal pain, NVD Time Seen by Provider: 09/06/20 22:19 Source: EMS Mode of arrival: EMS Limitations: language barrier - History of Present Illness MD Complaint: abdominal pain Onset/Timin -: days(s) Location: LUQ, LLQ Radiation: none Migration to: no migration Severity: moderate Consistency: constant Improves With: nothing Worsens With: nothing Associated Symptoms: nausea, vomiting, diarrhea - Related Data Home Medications Medication Instructions Recorded Confirmed Atorvastatin [Lipitor] 10 mg PO DAILY 11/27/15 11/19/19 Carvedilol [Coreg] 12.5 mg PO BID 01/30/17 11/19/19 Amiodarone [Cordarone] 100 mg PO DAILY 05/12/18 11/19/19 Apixaban [Eliquis] 5 mg PO BID 05/12/18 11/19/19 Ferrous Sulfate [Feosol] 325 mg PO BID 05/12/18 11/19/19 Levothyroxine Sodium [Synthroid] 112 mcg PO DAILY 05/12/18 11/19/19 Pantoprazole Sodium [Protonix] 40 mg PO DAILY 05/12/18 11/19/19 Potassium Chloride ER [K-Dur 10] 10 meq PO DAILY 05/12/18 11/19/19 lisinopriL [Prinivil] 5 mg PO DAILY 05/12/18 11/19/19 Gabapentin 800 mg PO BID 09/09/18 11/19/19 Insulin Aspart [NovoLOG] 5 unit SQ AC-TID 09/09/18 11/20/19 Montelukast [Singulair] 10 mg PO HS 09/09/18 11/19/19 Carboxymethylcellulos/Glycerin 1 drop BOTH EYES TID PRN 09/22/18 11/19/19 [Refresh Repair 0.5-0.9% Drop] Insulin Detemir [Levemir Flextouch] 15 units SQ BID 09/22/18 11/20/19 metFORMIN HCL [Glucophage] 500 mg PO BID 09/22/18 11/19/19 Albuterol Sulfate [Ventolin HFA] 1 - 2 puff INHALATION RT-Q6H PRN 08/27/19 11/19/19 Aspirin 81 mg PO DAILY 08/27/19 11/19/19 Finasteride [Proscar] 5 mg PO DAILY 08/27/19 11/19/19 Sertraline [Zoloft] 100 mg PO DAILY 08/27/19 11/19/19 Tamsulosin [Flomax] 0.4 mg PO DAILY 08/27/19 11/19/19 Furosemide [Lasix] 40 mg PO BID 11/19/19 11/19/19 busPIRone HCL 10 mg PO TID 11/19/19 11/19/19 Previous Rx's Medication Instructions Recorded Midodrine [ProAmatine] 2.5 mg PO AC-TID #90 tab 11/22/19 clindamycin HCL [Cleocin] 300 mg PO Q8H #9 cap 11/22/19 Famotidine [Pepcid] 20 mg PO BID #14 tablet 09/07/20 Ondansetron Odt [Zofran ODT] 4 mg PO Q8HR PRN #10 tab 09/07/20 Allergies Allergy/AdvReac Type Severity Reaction Status Date / Time No Known Allergies Allergy Verified 11/19/19 21:49 Review of Systems ROS Statement: Those systems with pertinent positive or pertinent negative responses have been documented in the HPI. ROS Other: All systems not noted in ROS Statement are negative. Constitutional: Denies: fever, chills Respiratory: Denies: cough, dyspnea Cardiovascular: Denies: chest pain Gastrointestinal: Reports: abdominal pain, nausea, vomiting, diarrhea. Denies: hematemesis, melena, hematochezia Genitourinary: Denies: dysuria, hematuria Musculoskeletal: Denies: back pain Skin: Denies: rash Neurological: Denies: headache Past Medical History Past Medical History: Atrial Fibrillation, Coronary Artery Disease (CAD), Diabetes Mellitus, Hearing Disorder / Deafness, Hyperlipidemia, Hypertension, Myocardial Infarction (CT), Skin Disorder, Sleep Apnea/CPAP/BIPAP Additional Past Medical History / Comment(s): Pt is deaf, IDDM type II, sawyer ateral hands/arms and leg/feet neuropathy, JAMEY with no current CPAP use, psoriasis, constipation, pt needs oral surgery. paroxsymal afib. Pt is a Jehovah Witness and is not to receive blood. Last Myocardial Infarction Date:: 2008 History of Any Multi-Drug Resistant Organisms: None Reported Past Surgical History: Heart Catheterization With Stent Additional Past Surgical History / Comment(s): One cardiac stent placed approx 2008 at [facility], Past Anesthesia/Blood Transfusion Reactions: No Reported Reaction Additional Past Anesthesia/Blood Transfusion Reaction / Comment(s): DOES NOT RECIEVE BLOOD TRANSFUSIONS Date of Last Stent Placement:: 2008 Past Psychological History: Depression Smoking Status: Never smoker Past Alcohol Use History: None Reported Past Drug Use History: None Reported - Past Family History Father History Unknown: Yes Additional Family Medical History / Comment(s): FOSTER CHILD, NO CONTACT WITH BIOLOGICAL FAMILY SINCE AGE 1. Mother History Unknown: Yes Family Medical History: No Reported History General Exam Limitations: language barrier General appearance: alert, in no apparent distress Head exam: Present: atraumatic, normocephalic Eye exam: Present: normal appearance. Absent: scleral icterus, conjunctival injection ENT exam: Present: normal oropharynx Respiratory exam: Present: normal lung sounds bilaterally. Absent: respiratory distress, wheezes, rales, rhonchi, stridor Cardiovascular Exam: Present: regular rate, normal rhythm, normal heart sounds. Absent: systolic murmur, diastolic murmur, rubs, gallop GI/Abdominal exam: Present: soft, tenderness. Absent: distended, guarding, rebound, rigid, mass, pulsatile mass, hernia Extremities exam: Present: normal inspection, normal capillary refill. Absent: pedal edema, calf tenderness Back exam: Present: normal inspection. Absent: CVA tenderness (R), CVA tenderness (L) Neurological exam: Present: alert Skin exam: Present: warm, dry, intact, normal color. Absent: rash Course Vital Signs 09/06/20 09/07/20 09/07/20 22:18 00:43 01:30 Temperature 98.4 F 98.3 F 98.0 F Pulse Rate 80 75 86 Respiratory 18 18 18 Rate Blood Pressure 119/71 109/48 115/58 O2 Sat by Pulse 95 94 L 99 Oximetry Medical Decision Making - Lab Data Result diagrams: 09/06/20 22:40 09/06/20 22:40 Lab Results 09/06/20 09/06/20 09/06/20 Range/Units 22:40 22:40 22:40 WBC 4.5 (3.8-10.6) k/uL RBC 4.04 L (4.30-5.90) m/uL Hgb 13.8 (13.0-17.5) gm/dL Hct 40.8 (39.0-53.0) % MCV 101.1 H (80.0-100.0) fL MCH 34.2 (25.0-35.0) pg MCHC 33.8 (31.0-37.0) g/dL RDW 13.8 (11.5-15.5) % Plt Count 184 (150-450) k/uL MPV 7.4 Neutrophils % (Manual) 45 % Band Neuts % (Manual) 17 % Lymphocytes % 17 % Lymphocytes % (Manual) 23 % Monocytes % 9 % Monocytes % (Manual) 12 % Eosinophils % 4 % Eosinophils % (Manual) 4 % Basophils % 1 % Neutrophils # 3.0 (1.3-7.7) k/uL Lymphocytes # 0.8 L (1.0-4.8) k/uL Monocytes # 0.4 (0-1.0) k/uL Eosinophils # 0.2 (0-0.7) k/uL Basophils # 0.0 (0-0.2) k/uL Nucleated RBCs 0 (0-0) /100 WBC Manual Slide Review Performed Anisocytosis (manual) Present Macrocytosis Slight Sodium 136 L (137-145) mmol/L Potassium 4.1 (3.5-5.1) mmol/L Chloride 98 (98-107) mmol/L Carbon Dioxide 31 H (22-30) mmol/L Anion Gap 7 mmol/L BUN 25 H (9-20) mg/dL Creatinine 1.15 (0.66-1.25) mg/dL Est GFR (CKD-EPI)AfAm 74 (>60 ml/min/1.73 sqM) Est GFR (CKD-EPI)NonAf 64 (>60 ml/min/1.73 sqM) Glucose 261 H (74-99) mg/dL POC Glucose (mg/dL) (75-99) mg/dL POC Glu Network Operations Manager ID Plasma Lactic Acid Don 1.7 (0.7-2.0) mmol/L Calcium 8.1 L (8.4-10.2) mg/dL Total Bilirubin 1.4 H (0.2-1.3) mg/dL AST 16 L (17-59) U/L ALT 19 (4-49) U/L Alkaline Phosphatase 76 (38-126) U/L Total Protein 6.5 (6.3-8.2) g/dL Albumin 3.5 (3.5-5.0) g/dL Amylase <30 L (30-110) U/L Lipase 31 (23-300) U/L 09/06/20 09/07/20 Range/Units 23:33 00:52 WBC (3.8-10.6) k/uL RBC (4.30-5.90) m/uL Hgb (13.0-17.5) gm/dL Hct (39.0-53.0) % MCV (80.0-100.0) fL MCH (25.0-35.0) pg MCHC (31.0-37.0) g/dL RDW (11.5-15.5) % Plt Count (150-450) k/uL MPV Neutrophils % (Manual) % Band Neuts % (Manual) % Lymphocytes % % Lymphocytes % (Manual) % Monocytes % % Monocytes % (Manual) % Eosinophils % % Eosinophils % (Manual) % Basophils % % Neutrophils # (1.3-7.7) k/uL Lymphocytes # (1.0-4.8) k/uL Monocytes # (0-1.0) k/uL Eosinophils # (0-0.7) k/uL Basophils # (0-0.2) k/uL Nucleated RBCs (0-0) /100 WBC Manual Slide Review Anisocytosis (manual) Macrocytosis Sodium (137-145) mmol/L Potassium (3.5-5.1) mmol/L Chloride (98-107) mmol/L Carbon Dioxide (22-30) mmol/L Anion Gap mmol/L BUN (9-20) mg/dL Creatinine (0.66-1.25) mg/dL Est GFR (CKD-EPI)AfAm (>60 ml/min/1.73 sqM) Est GFR (CKD-EPI)NonAf (>60 ml/min/1.73 sqM) Glucose (74-99) mg/dL POC Glucose (mg/dL) 233 H 198 H (75-99) mg/dL POC Glu Network Operations Manager ID Tiffanie Morel Robin Plasma Lactic Acid Don (0.7-2.0) mmol/L Calcium (8.4-10.2) mg/dL Total Bilirubin (0.2-1.3) mg/dL AST (17-59) U/L ALT (4-49) U/L Alkaline Phosphatase (38-126) U/L Total Protein (6.3-8.2) g/dL Albumin (3.5-5.0) g/dL Amylase (30-110) U/L Lipase (23-300) U/L Disposition Clinical Impression: Vomiting and diarrhea, Hyperglycemia due to type 2 diabetes mellitus Disposition: HOME SELF-CARE Condition: Good Instructions (If sedation given, give patient instructions): Acute Nausea and Vomiting (ED), Dehydration (ED) Prescriptions: Famotidine [Pepcid] 20 mg PO BID #14 tablet Ondansetron Odt [Zofran ODT] 4 mg PO Q8HR PRN #10 tab PRN Reason: Nausea Is patient prescribed a controlled substance at d/c from ED?: No Referrals: Sherron Anderson MD [Primary Care Provider] - 1-2 days
[2020-09-06 22:53] LABS: Basophils % (A) 1 %; Eosinophils # (A) 0.2 k/uL (0-0.7); Eosinophils % (A) 4 %; HCT 40.8 % (39.0-53.0); HGB 13.8 gm/dL (13.0-17.5); Lymphocytes # (A) 0.8 k/uL (1.0-4.8); Lymphocytes % (A) 17 %; MCH 34.2 pg (25.0-35.0); MCHC 33.8 g/dL (31.0-37.0); MCV 101.1 fL (80.0-100.0); Macrocytosis Slight; Mean Platelet Volume 7.4; Monocytes # (A) 0.4 k/uL (0-1.0); Monocytes % (A) 9 %; Platelet Count 184 k/uL (150-450); RBC 4.04 m/uL (4.30-5.90); RDW 13.8 % (11.5-15.5); WBC 4.5 k/uL (3.8-10.6)
[2020-09-06 23:02] LABS: ALT 19 U/L (4-49); AST 16 U/L (17-59); African American GFR (CKD) 74 (>60 ml/min/1.73 sqM); Albumin 3.5 g/dL (3.5-5.0); Alkaline Phosphatase 76 U/L (38-126); Amylase <30 U/L (30-110); Anion Gap 7 mmol/L; Blood Urea Nitrogen 25 mg/dL (9-20); Calcium 8.1 mg/dL (8.4-10.2); Carbon Dioxide 31 mmol/L (22-30); Chloride 98 mmol/L (98-107); Glucose 261 mg/dL (74-99); Lipase 31 U/L (23-300); Non-African American GFR(CKD) 64 (>60 ml/min/1.73 sqM); Potassium 4.1 mmol/L (3.5-5.1); Sodium 136 mmol/L (137-145); Total Bilirubin 1.4 mg/dL (0.2-1.3); Total Protein 6.5 g/dL (6.3-8.2)
[2020-09-06] MEDS ORDERED: SODIUM CHLORIDE 0.9% 1,000 ML IV ONE (23:07)
[2020-09-06] MEDS ORDERED: INSULIN REGULAR 100 UNIT/ML VIAL SQ STA (23:07)
[2020-09-06 23:35] LABS: Glucose,Whole Blood 233 mg/dL (75-99)
[2020-09-06 23:35] LABS: Band Neutrophils % 17 %; Neutrophils % (M) 45 %; Nucleated Red Blood Cells 0 /100 WBC (0-0); Total Cells Counted 200
[2020-09-06 23:36] LABS: Anisocytosis (M) Present
--- NOTE | 2020-09-06 23:42 | CT ---
EXAMINATION TYPE: CT abdomen pelvis w con DATE OF EXAM: 09/06/2020 COMPARISON: 09/22/2018 HISTORY: LLQ pain. possible diverticulitis CT DLP: 2103.6 mGycm Automated exposure control for dose reduction was used. CONTRAST: Performed with IV Contrast, patient injected with 100ml mL of Isovue 300. There is some patchy atelectasis at the lung bases. Heart is enlarged. There is no pericardial effusi on. Liver shows normal size. The bile ducts are not dilated. There is 1 cm cyst in the anterior right lob e of the liver. Stomach is intact. There is no evidence of pancreatic mass. There is some pancreatic atrophy. There is no adrenal mass. Kidneys show satisfactory contrast opacification. There is no hydronephrosi s. Ureters are not dilated. There is no retroperitoneal adenopathy. Bladder distends smoothly. There is no inguinal hernia. There is no free fluid in the pelvis. There is no evidence of a pelvic mass. A ppendix is medial and appears normal. There is no mesenteric edema. There is no ascites or free air. There is no sign of bowel obstruction. Lumbar vertebra appear intact. There is no compression fracture. I see no bony destructive process. T he bony pelvis is intact. Hip joints are intact. IMPRESSION: No acute abnormality within the abdomen pelvis. Interstitial infiltrates and atelectasis at the lung bases. This appears similar to old exam.
[2020-09-07] MEDS ORDERED: METOCLOPRAMIDE 5 MG/ML 2 ML VIAL IVP STA (00:23)
[2020-09-07] MEDS ORDERED: SODIUM CHLORIDE 0.9% 1,000 ML IV ONE (00:23)
[2020-09-07] MEDS ORDERED: MORPHINE SULFATE 4 MG/ML SYRINGE IV STA (00:23)
[2020-09-07 00:53] LABS: Glucose,Whole Blood 198 mg/dL (75-99)
[2020-09-07] MEDS ORDERED: MORPHINE SULFATE 4 MG/ML SYRINGE IV PRN (04:00)
[2020-09-07] MEDS ORDERED: SODIUM CHLORIDE 0.9% 1,000 ML IV SCH (04:00)
[2020-09-07] MEDS ORDERED: NALOXONE 0.4 MG/ML 1 ML VIAL IV PRN (04:00)
[2020-09-07] MEDS ORDERED: ALBUTEROL NEBULIZED 2.5 MG/3 ML INHALATION PRN (04:02)
[2020-09-07] MEDS ORDERED: MAG HYDROX/AL HYDROX/SIMETH 30 ML CUP PO PRN (06:00)
[2020-09-07] MEDS ORDERED: LEVOTHYROXINE 112 MCG TAB PO SCH (06:30)
[2020-09-07] MEDS ORDERED: carvediloL 12.5 MG TAB PO SCH (07:30)
[2020-09-07] MEDS: MIDODRINE 5 MG TAB PO SCH ×2 (07:34→12:14)
[2020-09-07 07:51] LABS: Glucose,Whole Blood 145 mg/dL (75-99)
[2020-09-07] MEDS ORDERED: ONDANSETRON 4 MG/2 ML VIAL IVP PRN (08:00)
[2020-09-07] MEDS ORDERED: AMIODARONE 100 MG TAB PO SCH (09:00)
[2020-09-07] MEDS ORDERED: POTASSIUM CHLORIDE ER 10 MEQ TAB.ER.PRT PO SCH (09:00)
[2020-09-07] MEDS ORDERED: APIXABAN 5 MG TAB PO SCH (09:00)
[2020-09-07] MEDS ORDERED: busPIRone HCl 10 MG TAB PO SCH (09:00)
[2020-09-07] MEDS ORDERED: GABAPENTIN 400 MG CAP PO SCH (09:00)
[2020-09-07] MEDS ORDERED: TAMSULOSIN 0.4 MG CAP.ER.24H PO SCH (09:00)
[2020-09-07] MEDS ORDERED: FINASTERIDE 5 MG TAB PO SCH (09:00)
[2020-09-07] MEDS ORDERED: FAMOTIDINE 20 MG TAB PO SCH (09:00)
[2020-09-07] MEDS ORDERED: ASPIRIN 81 MG PO SCH (09:00)
[2020-09-07] MEDS ORDERED: FERROUS SULFATE 325 MG TAB PO SCH (09:00)
[2020-09-07] MEDS ORDERED: lisinopriL 5 MG TAB PO SCH (09:00)
[2020-09-07] MEDS ORDERED: metFORMIN 500 MG TAB PO SCH (09:00)
[2020-09-07] MEDS ORDERED: SERTRALINE 100 MG TAB PO SCH (09:00)
[2020-09-07] MEDS ORDERED: PANTOPRAZOLE 40 MG TABLET PO SCH ×2 (09:00→21:00)
[2020-09-07] MEDS ORDERED: INSULIN DETEMIR (LEVEMIR) 100 UNIT/ML SYR SQ SCH (09:00)
[2020-09-07] MEDS ORDERED: ATORVASTATIN 10 MG TAB PO SCH (09:00)
[2020-09-07 11:30] LABS: Appearance,Urine Clear (Clear); Bilirubin,Urine Negative (Negative); Blood,Urine Negative (Negative); Color,Urine Yellow; Glucose,Urine (UA) Negative (Negative); Ketones,Urine Negative (Negative); Leukocyte Esterase,Urine Negative (Negative); Nitrite,Urine Negative (Negative); PH, Urine 5.5 (5.0-8.0); Protein,Urine Trace (Negative); Specific Gravity,Urine 1.038 (1.001-1.035); Urobilinogen,Urine <2.0 mg/dL (<2.0)
[2020-09-07 12:23] LABS: Glucose,Whole Blood 190 mg/dL (75-99)
--- NOTE | 2020-09-07 13:24 | P.HPIM ---
History of Present Illness Unable to get much of the history and the patient patient came in with nausea vomiting diarrhea and epigastric abdominal pain patient is not clearly able to characterize it location is diffuse left upper quadrant. as well as epigastric area patient was started on IV Protonix given IV fluids much better clinically doing well sleeping at this time. Patient will be started on diet if he can tolerate patient was discharged today ration probably had viral gastroenteritis. Review of Systems Unable to obtain due to his clinical condition Past Medical History Past Medical History: Atrial Fibrillation, Coronary Artery Disease (CAD), Diabetes Mellitus, Hearing Disorder / Deafness, Hyperlipidemia, Hypertension, Myocardial Infarction ([place]), Skin Disorder, Sleep Apnea/CPAP/BIPAP Additional Past Medical History / Comment(s): Pt is deaf, IDDM type II, bilateral hands/arms and leg/feet neuropathy, JAMEY with no current CPAP use, psoriasis, constipation, pt needs oral surgery. paroxsymal afib. Pt is a Jehovah Witness and is not to receive blood. Last Myocardial Infarction Date:: 2008 History of Any Multi-Drug Resistant Organisms: None Reported Past Surgical History: Heart Catheterization With Stent Additional Past Surgical History / Comment(s): One cardiac stent placed approx 2008 at [facility], Past Anesthesia/Blood Transfusion Reactions: No Reported Reaction Additional Past Anesthesia/Blood Transfusion Reaction / Comment(s): DOES NOT RECIEVE BLOOD TRANSFUSIONS Date of Last Stent Placement:: 2008 Past Psychological History: Depression Additional Psychological History / Comment(s): Pt resides in an apartment alone. He has [facility] home care. He ambulates with a cane or uses a scooter. Pt is a [employer] and does not want to receive blood, needs h Smoking Status: Never smoker Past Alcohol Use History: None Reported Additional Past Alcohol Use History / Comment(s): Pt quit smoking in 1974. Past Drug Use History: None Reported Additional Drug Use History / Comment(s): OCCASIONAL ETOH ON HOLIDAYS. - Past Family History Father History Unknown: Yes Additional Family Medical History / Comment(s): FOSTER CHILD, NO CONTACT WITH BIOLOGICAL FAMILY SINCE AGE 1. Mother History Unknown: Yes Family Medical History: No Reported History Medications and Allergies Home Medications Medication Instructions Recorded Confirmed Type Atorvastatin [Lipitor] 10 mg PO DAILY 11/27/15 09/07/20 History Apixaban [Eliquis] 5 mg PO BID 05/12/18 09/07/20 History Ferrous Sulfate [Feosol] 325 mg PO TID 05/12/18 09/07/20 History Levothyroxine Sodium [Synthroid] 112 mcg PO DAILY 05/12/18 09/07/20 History Pantoprazole Sodium [Protonix] 40 mg PO DAILY 05/12/18 09/07/20 History Potassium Chloride ER [K-Dur 10] 10 meq PO DAILY 05/12/18 09/07/20 History lisinopriL [Prinivil] 5 mg PO DAILY 05/12/18 09/07/20 History Gabapentin 800 mg PO TID 09/09/18 09/07/20 History Montelukast [Singulair] 10 mg PO HS 09/09/18 09/07/20 History Insulin Detemir [Levemir Flextouch] 25 units SQ BID 09/22/18 09/07/20 History Aspirin 81 mg PO DAILY 08/27/19 09/07/20 History Sertraline [Zoloft] 100 mg PO HS 08/27/19 09/07/20 History Tamsulosin [Flomax] 0.4 mg PO DAILY 08/27/19 09/07/20 History Furosemide [Lasix] 40 mg PO BID 11/19/19 09/07/20 History busPIRone HCL 10 mg PO TID 11/19/19 09/07/20 History Midodrine [ProAmatine] 2.5 mg PO AC-TID #90 tab 11/22/19 09/07/20 Rx Fexofenadine HCl 180 mg PO DAILY 09/07/20 09/07/20 History Fluticasone Nasal [place] [Flonase 2 spr EA NOSTRIL DAILY 09/07/20 09/07/20 History Nasal [place]] INSULIN ASPART (NovoLOG) [NovoLOG 25 - 30 unit SQ AC-TID 09/07/20 09/07/20 History (formulary)] Metoprolol Tartrate [Lopressor] 50 mg PO BID #60 tab 09/07/20 Rx Nitroglycerin Sl Tabs [Nitrostat] 0.4 mg SUBLINGUAL Q5M PRN 09/07/20 09/07/20 H istory Polyethylene Glycol 3350 [Miralax] 17 gm PO DAILY 09/07/20 09/07/20 History Allergies Allergy/AdvReac Type Severity Reaction Status Date / Time No Known Allergies Allergy Verified 09/07/20 07:16 Physical Exam Vitals: Vital Signs Temp Pulse Pulse Resp BP BP Pulse Ox 09/07/20 09:16 18 09/07/20 07:30 98.9 F 85 18 101/63 94 L 09/07/20 05:27 98.0 F 83 17 110/59 96 09/07/20 03:50 97.9 F 71 18 102/59 97 09/07/20 02:30 75 18 117/66 98 09/07/20 01:30 98.0 F 86 18 115/58 99 09/07/20 00:43 98.3 F 75 18 109/48 94 L 09/06/20 22:18 98.4 F 80 18 119/71 95 Intake and Output 09/06/20 09/07/20 09/07/20 22:59 06:59 14:59 Intake Total 120 200 Balance 120 200 Intake: Oral 120 200 Other: Voiding Method Toilet # Voids 1 2 Weight 113.398 kg 113.398 kg PHYSICAL EXAMINATION: GENERAL: The patient is alert and unable to assess orientation, not in any acute distress. Well developed, well nourished. HEENT: Pupils are round and equally reacting to light. EOMI. No scleral icterus. No conjunctival pallor. Normocephalic, atraumatic. No pharyngeal erythema. No thyromegaly. CARDIOVASCULAR: S1 and S2 present. No murmurs, rubs, or gallops. PULMONARY: Chest is clear to auscultation, no wheezing or crackles. ABDOMEN: Soft, nontender, nondistended, normoactive bowel sounds. No palpable organomegaly. MUSCULOSKELETAL: No joint swelling or deformity. EXTREMITIES: No cyanosis, clubbing, or pedal edema. NEUROLOGICAL: Does not appear to have any focal deficits SKIN: No rashes. Results CBC & Chem 7: 09/06/20 22:40 09/06/20 22:40 Labs: Abnormal Lab Results - Last 24 Hours (Table) 09/06/20 09/06/20 09/06/20 Range/Units 22:40 22:40 23:33 RBC 4.04 L (4.30-5.90) m/uL MCV 101.1 H (80.0-100.0) fL Lymphocytes # 0.8 L (1.0-4.8) k/uL Sodium 136 L (137-145) mmol/L Carbon Dioxide 31 H (22-30) mmol/L BUN 25 H (9-20) mg/dL Glucose 261 H (74-99) mg/dL POC Glucose (mg/dL) 233 H (75-99) mg/dL Calcium 8.1 L (8.4-10.2) mg/dL Total Bilirubin 1.4 H (0.2-1.3) mg/dL AST 16 L (17-59) U/L Amylase <30 L (30-110) U/L Ur Specific [place] (1.001-1.035) Urine Protein (Negative) 09/07/20 09/07/20 09/07/20 Range/Units 00:52 07:37 11:06 RBC (4.30-5.90) m/uL MCV (80.0-100.0) fL Lymphocytes # (1.0-4.8) k/uL Sodium (137-145) mmol/L Carbon Dioxide (22-30) mmol/L BUN (9-20) mg/dL Glucose (74-99) mg/dL POC Glucose (mg/dL) 198 H 145 H (75-99) mg/dL Calcium (8.4-10.2) mg/dL Total Bilirubin (0.2-1.3) mg/dL AST (17-59) U/L Amylase (30-110) U/L Ur Specific [place] 1.038 H (1.001-1.035) Urine Protein Trace H (Negative) 09/07/20 Range/Units 12:13 RBC (4.30-5.90) m/uL MCV (80.0-100.0) fL Lymphocytes # (1.0-4.8) k/uL Sodium (137-145) mmol/L Carbon Dioxide (22-30) mmol/L BUN (9-20) mg/dL Glucose (74-99) mg/dL POC Glucose (mg/dL) 190 H (75-99) mg/dL Calcium (8.4-10.2) mg/dL Total Bilirubin (0.2-1.3) mg/dL AST (17-59) U/L Amylase (30-110) U/L Ur Specific [place] (1.001-1.035) Urine Protein (Negative) Thrombosis Risk Factor Assmnt - Choose All That Apply Other Risk Factors: Yes Each Risk Factor Represents 2 Points: Age 61-74 years Thrombosis Risk Factor Assessment Total Risk Factor Score: 2 Thrombosis Risk Factor Assessment Level: Low Risk Assessment and Plan Plan: -Possible viral gastroenteritis: Symptoms improved at this time patient will be discharged today patient is already on Protonix twice a day which continued -Congestive heart failure chronic diastolic dysfunction presently not in acute exacerbation IV fluids will be discontinued . Patient is clinically well this time -Coronary artery disease -Type 2 diabetes mellitus -Hyperlipidemia -Hypertension patient is presently hypotensive because of which I'm changing Coreg to metoprolol continue with the NIKOLAI inhibitor which is good because of his heart failure history and diabetes mellitus. -Coronary artery disease -Sleep apnea -Proximal A. fib presently rate controlled on anticoagulation with Eliquis which will be continued -Diabetic peripheral neuropathy -Depression We will advance the diet if patient is able to tolerate will be discharged today
[2020-09-07 13:40] VITALS: BP 121/74; PULSE 86; RESP 16; TEMP 98.2
[2020-09-07] MEDS ORDERED: INSULIN ASPART (NovoLOG) 100 UNIT/ML VIAL SQ SCH (17:30)
[2020-09-07] MEDS ORDERED: MONTELUKAST 10 MG TAB PO SCH (21:00)
== END 2020-09-07 15:35 | disposition home or self-care (01) ==
LOC: EC 22:13 → 6NMEDSUR 09-07 04:02
PROVIDERS: ADMIT Internal Medicine; ATTEND Internal Medicine
DX: R11.2 Nausea with vomiting, unspecified (principal); R19.7 Diarrhea, unspecified; R10.13 Epigastric pain; R10.32 Left lower quadrant pain; R10.12 Left upper quadrant pain; I25.10 Atherosclerotic heart disease of native coronary artery without angina pectoris; H91.90 Unspecified hearing loss, unspecified ear; E78.5 Hyperlipidemia, unspecified; I25.2 Old myocardial infarction; E11.40 Type 2 diabetes mellitus with diabetic neuropathy, unspecified; G47.33 Obstructive sleep apnea (adult) (pediatric); L40.9 Psoriasis, unspecified; K59.00 Constipation, unspecified; I48.0 Paroxysmal atrial fibrillation; F32.9 Major depressive disorder, single episode, unspecified; I11.0 Hypertensive heart disease with heart failure; I50.32 Chronic diastolic (congestive) heart failure; E11.65 Type 2 diabetes mellitus with hyperglycemia; E11.42 Type 2 diabetes mellitus with diabetic polyneuropathy; I95.9 Hypotension, unspecified; Z95.5 Presence of coronary angioplasty implant and graft; Z87.891 Personal history of nicotine dependence; Z79.899 Other long term (current) drug therapy; Z79.01 Long term (current) use of anticoagulants; Z79.890 Hormone replacement therapy; Z79.4 Long term (current) use of insulin; Z79.82 Long term (current) use of aspirin; Z20.822 Contact with and (suspected) exposure to COVID-19
CPT/HCPCS: 96376 ×2; 96361 ×2; 96374; 96375; 99285; 36415 ×2; 80053; 82150; 83605; 83690; 85025; 81003; 87635; 74177; G0378; S0138; J2270; J2765; J2405; Q9967

== ENCOUNTER 2021-01-16 16:18 | Emergency (ER) | payer MEDICARE, OTHER ==
[2021-01-16 16:31] VITALS: BP 113/62; PULSE 68; RESP 16; TEMP 97.9
[2021-01-16] MEDS ORDERED: NA PHOS,M-B/NA PHOS,DI-BA 133 ML ENEMA RECTAL STA (17:00)
--- NOTE | 2021-01-16 17:20 | ED ---
General Adult HPI - General Chief complaint: Abdominal Pain Stated complaint: constipation Time Seen by Provider: 01/16/21 16:24 Source: patient, EMS Mode of arrival: EMS Limitations: language barrier - History of Present Illness Initial comments: Patient is a 70-year-old male, history of A. fib, diabetes, hypertension, sleep apnea, normally on 3 L home O2 , patient is deaf, presenting to the emergency department via EMS with complaints of constipation and lower abdominal pressure. Patient answering questions using pen/paper. He states he has not had a significant bowel movement in 4 days. He did try stool softeners twice, none today. He is passing gas. He admits to history of umbilical hernia repair, no other abdominal surgeries. He denies any fevers or chills, no nausea or vomiting. Denies any chest pain or shortness of breath. He has no further complaints at this time. - Related Data Home Medications Medication Instructions Recorded Confirmed Atorvastatin [Lipitor] 10 mg PO DAILY 11/27/15 09/07/20 Apixaban [Eliquis] 5 mg PO BID 05/12/18 09/07/20 Ferrous Sulfate [Feosol] 325 mg PO TID 05/12/18 09/07/20 Levothyroxine Sodium [Synthroid] 112 mcg PO DAILY 05/12/18 09/07/20 Pantoprazole Sodium [Protonix] 40 mg PO DAILY 05/12/18 09/07/20 Potassium Chloride ER [K-Dur 10] 10 meq PO DAILY 05/12/18 09/07/20 lisinopriL [Prinivil] 5 mg PO DAILY 05/12/18 09/07/20 Gabapentin 800 mg PO TID 09/09/18 09/07/20 Montelukast [Singulair] 10 mg PO HS 09/09/18 09/07/20 Insulin Detemir [Levemir Flextouch] 25 units SQ BID 09/22/18 09/07/20 Aspirin 81 mg PO DAILY 08/27/19 09/07/20 Sertraline [Zoloft] 100 mg PO HS 08/27/19 09/07/20 Tamsulosin [Flomax] 0.4 mg PO DAILY 08/27/19 09/07/20 Furosemide [Lasix] 40 mg PO BID 11/19/19 09/07/20 busPIRone HCL 10 mg PO TID 11/19/19 09/07/20 Fexofenadine HCl 180 mg PO DAILY 09/07/20 09/07/20 Fluticasone Nasal [place] [Flonase 2 spr EA NOSTRIL DAILY 09/07/20 09/07/20 Nasal [place]] INSULIN ASPART (NovoLOG) [NovoLOG 25 - 30 unit SQ AC-TID 09/07/20 09/07/20 (formulary)] Nitroglycerin Sl Tabs [Nitrostat] 0.4 mg SUBLINGUAL Q5M PRN 09/07/20 09/07/20 Polyethylene Glycol 3350 [Miralax] 17 gm PO DAILY 09/07/20 09/07/20 Previous Rx's Medication Instructions Recorded Midodrine [ProAmatine] 2.5 mg PO AC-TID #90 tab 11/22/19 Metoprolol Tartrate [Lopressor] 50 mg PO BID #60 tab 09/07/20 Allergies Allergy/AdvReac Type Severity Reaction Status Date / Time No Known Allergies Allergy Verified 09/07/20 07:16 Review of Systems ROS Statement: Those systems with pertinent positive or pertinent negative responses have been documented in the HPI. ROS Other: All systems not noted in ROS Statement are negative. Past Medical History Past Medical History: Atrial Fibrillation, Coronary Artery Disease (CAD), Diabetes Mellitus, Hearing Disorder / Deafness, Hyperlipidemia, Hypertension, Myocardial Infarction ([place]), Skin Disorder, Sleep Apnea/CPAP/BIPAP Additional Past Medical History / Comment(s): Pt is deaf, IDDM type II, bilateral hands/arms and leg/feet neuropathy, JAMEY with no current CPAP use, psoriasis, constipation, pt needs oral surgery. paroxsymal afib. Pt is a Jehovah Witness and is not to receive blood. Last Myocardial Infarction Date:: 2008 History of Any Multi-Drug Resistant Organisms: None Reported Past Surgical History: Heart Catheterization With Stent Additional Past Surgical History / Comment(s): One cardiac stent placed approx 2008 at [facility], Past Anesthesia/Blood Transfusion Reactions: No Reported Reaction Additional Past Anesthesia/Blood Transfusion Reaction / Comment(s): DOES NOT RECIEVE BLOOD TRANSFUSIONS Date of Last Stent Placement:: 2008 Past Psychological History: Depression Smoking Status: Never smoker Past Alcohol Use History: None Reported Past Drug Use History: None Reported - Past Family History Father History Unknown: Yes Additional Family Medical History / Comment(s): FOSTER CHILD, NO CONTACT WITH BIOLOGICAL FAMILY SINCE AGE 1. Mother History Unknown: Yes Family Medical History: No Reported History General Exam - General Exam Comments Initial Comments: GENERAL: Patient is well-developed and well-nourished. Patient is nontoxic and in no acute distress. HEAD: Atraumatic, normocephalic. EYES: Pupils equal round and reactive to light, extraocular movements intact, sclera anicteric, conjunctiva are normal. Eyelids were unremarkable. ENT: TMs normal, nares patent, oropharynx clear without exudates. Moist mucous membranes. NECK: Normal range of motion, supple without lymphadenopathy or JVD. LUNGS: Unlabored respirations. Breath sounds clear to auscultation bilaterally and equal. No wheezes rales or rhonchi. HEART: Regular rate and rhythm without murmurs, rubs or gallops. ABDOMEN: Soft, mild lower abdominal discomfort on palpation but no specific area pain, normoactive bowel sounds. No guarding, no rebound. No masses appreciated. : Deferred MUSCULOSKELETAL: Normal extremities with adequate strength and normal range of motion, no pitting or edema. No clubbing or cyanosis. NEUROLOGICAL: Patient is alert and oriented x 3. Motor and sensory are also intact. Cranial nerves II through XII grossly intact. Symmetrical smile. Normal gait. PSYCH: Normal mood, normal affect. SKIN: Warm, Dry, normal turgor, no rashes or lesions noted. Limitations: language barrier Course Vital Signs 01/16/21 16:28 Temperature 97.9 F Pulse Rate 68 Respiratory 16 Rate Blood Pressure 113/62 O2 Sat by Pulse 97 Oximetry - Reevaluation(s) Reevaluation #1: 01/16/21 1750 Patient was reexamined, enema was given, patient was straining a lot on the toilet and started to become lightheaded. He was assisted into a wheelchair and onto the bed. Reevaluation #2: 01/16/21 18:00 Patient started hitting the center of his chest, we were initiating an EKG when patient became unresponsive. WAYNE SNOW was called, patient was transferred to trauma 1. I [address] Dior for further assistance. Medical Decision Making - Medical Decision Making Patient is a 70-year-old male here via EMS for constipation for 4 days. Has some lower mild abdominal pressure, no other alarming symptoms. No fevers, his vitals are stable. KUB showed no significant abnormality. Patient was given a Fleet enema as he had had these ones in the past. Patient requesting multiple times to sit on the toilet, he was straining a lot. We did request the patient to come back and lay in the bed, he was beginning to get lightheaded. Patient was laying in the bed, became unresponsive, diaphoretic and yeung in color. Patient was quickly transferred to trauma 1, cold blue/ACLS was initiated. Dr. Dior took over care. - Lab Data Lab Results 01/16/21 Range/Units 18:08 POC Glucose (mg/dL) 381 H (75-99) mg/dL POC Glu [employer] [place] Pulp ID Derek Avalos Disposition Clinical Impression: Cardiac arrest, Disposition: Referrals: Sherron Anderson MD [Primary Care Provider] - 1-2 days Preliminary Cause of : Cardiac arrest
--- NOTE | 2021-01-16 17:33 | XR ---
EXAMINATION TYPE: XR KUB DATE OF EXAM: 01/16/2021 COMPARISON: 12/03/2015 HISTORY: Constipation TECHNIQUE: 2 views upright FINDINGS: There is no sign of intestinal obstruction or pneumoperitoneum. Fecal pattern is normal. Th ere are no pathologic calcifications over the kidneys. Lung bases are clear there is no evidence of a mass. IMPRESSION: Nonacute abdomen. No evidence of constipation.
[2021-01-16] MEDS ORDERED: EPINEPHrine 10 ML SYRINGE (0.1 MG/ML) ONE (18:02)
[2021-01-16] MEDS ORDERED: SODIUM BICARB 8.4% 50 ML SYR (1 MEQ/ML) ONE (18:02)
[2021-01-16] MEDS ORDERED: CALCIUM CHLORIDE 100 MG/ML 10 ML SYRINGE ONE (18:02)
[2021-01-16 18:09] LABS: Glucose,Whole Blood 381 mg/dL (75-99)
--- NOTE | 2021-01-16 18:34 | ED ---
Medical Decision Making - Medical Decision Making I was notified by ED nursing staff that the patient was being moved to trauma 1 from bed 26 after he became unresponsive. Patient initially presented to the ED with complaint of constipation and seen by ED TIN Villanueva. I was told by his ED nurse that the patient was given an enema prior to becoming unresponsive. I became involved in the patient's care at 18:02 when the patient was moved to trauma 1. WAYNE SNOW was called. Patient was placed on the desk monitor and was noted to be in PEA. Chest compressions were started. Patient's blood glucose was checked and was in the 300s. ED nursing staff were able to establish 2 peripheral IVs. Patient was given a dose of IV rocuronium in preparation for endotracheal intubation. Video laryngoscope endotracheal intubation was attempted myself twice. Given the patient's obese body habitus, anterior airway and continued chest compressions, I was unsuccessful in my endotracheal intubation attempts. Patient was bagged with a BVM throughout ACLS resuscitation. Patient was given a total of 6 doses of IV epinephrine, 1 dose of IV sodium bicarbonate and one dose of IV calcium during ACLS resuscitation. Patient's subsequent rhythm checks all showed asystole. Resuscitative efforts were stopped at 1822 due to futility and patient was pronounced in an asystolic rhythm. waste examiner was notified. Dr. Sherron Anderson (the patient's PCP) as contacted by telephone and notified of the patient's . She agrees to complete the patient's certificate. - Lab Data Lab Results 01/16/21 Range/Units 18:08 POC Glucose (mg/dL) 381 H (75-99) mg/dL POC Glu Technical [employer] Manager ID Robbie Derek Critical Care Time Critical Care Time: Yes Total Critical Care Time: 30 Disposition Clinical Impression: Cardiac arrest, Disposition: Is patient prescribed a controlled substance at d/c from ED?: No When asked, does pt state using other controlled substances?: No Referrals: Sherron Anderson MD [Primary Care Provider] - 1-2 days Time of Disposition: 18:22 Preliminary Cause of : cardiac arrest
== END 2021-01-16 21:30 | disposition expired ==
LOC: EC 16:18
DX: I46.9 Cardiac arrest, cause unspecified (principal); K59.00 Constipation, unspecified; R10.9 Unspecified abdominal pain; E11.9 Type 2 diabetes mellitus without complications; E78.5 Hyperlipidemia, unspecified; I10 Essential (primary) hypertension; I25.10 Atherosclerotic heart disease of native coronary artery without angina pectoris; I25.2 Old myocardial infarction; I48.91 Unspecified atrial fibrillation; Z79.01 Long term (current) use of anticoagulants; Z79.4 Long term (current) use of insulin; Z79.82 Long term (current) use of aspirin; Z79.899 Other long term (current) drug therapy; Z95.5 Presence of coronary angioplasty implant and graft
CPT/HCPCS: 31500; 36415; 74018; 92950; 99285; 99291